=== PATIENT | female | born 1990 | race Hispanic/Latino ===

== ENCOUNTER 2018-08-30 22:36 | Emergency (ER) | payer OTHER ==
[2018-08-30] MEDS ORDERED: IBUPROFEN 400 MG TAB ONE (23:23)
--- NOTE | 2018-08-31 00:32 | ER ---
Nurse's Notes [facility] Name: Reyna Resendiz Age: 27 yrs Sex: Female : 1990 Arrival Date: 08/30/2018 Time: 22:41 Bed 16 Private MD: Diagnosis: Influenza due to certain identified influenza viruses Presentation: 08/30 22:49 Presenting complaint: Patient states: "I think I have the flu" Reports symptoms of body tl2 aches, headache, sore throat, nausea, and fever. Symptoms started at 12:00 today. Transition of care: patient was not received from another setting of care. Onset of symptoms was August 30, 2018 at 12:00. Risk Assessment: Do you want to hurt yourself or someone else? Patient reports no desire to harm self or others. Initial Sepsis Screen: Does the patient meet any 2 criteria? No. Patient's initial sepsis screen is negative. Does the patient have a suspected source of infection? No. Patient's initial sepsis screen is negative. Care prior to arrival: None. 22:49 Method Of Arrival: Ambulatory tl2 22:49 Acuity: ALONDRA 4 tl2 Triage Assessment: 22:51 General: Appears in no apparent distress. uncomfortable, Behavior is calm, cooperative, tl2 appropriate for age. Pain: Complains of pain in body aches, headache, sore throat. Neuro: Level of Consciousness is awake, alert, obeys commands, Oriented to person, place, time, situation. Cardiovascular: Denies chest pain. Respiratory: Reports cough that is Airway is patent Respiratory effort is even, unlabored, Respiratory pattern is regular, symmetrical. GI: Reports nausea. : No signs and/or symptoms were reported regarding the genitourinary system. Derm: Skin is pink, warm \\T\\ dry. 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 - Social history:: Smoking status: Patient/guardian denies using tobacco. - Ebola Screening: : No symptoms or risks identified at this time. Screenin:53 Abuse screen: Denies threats or abuse. Nutritional screening: No deficits noted. tl2 Tuberculosis screening: No symptoms or risk factors identified. Fall Risk None identified. Assessment: 22:53 General: see triage assessment. tl2 08/31 00:00 Reassessment: Patient appears in no apparent distress at this time. Patient and/or tl2 family updated on plan of care and expected duration. Pain level reassessed. Patient is alert, oriented x 3, equal unlabored respirations, skin warm/dry/pink. 01:00 Reassessment: Patient appears in no apparent distress at this time. Patient and/or tl2 family updated on plan of care and expected duration. Pain level reassessed. Patient is alert, oriented x 3, equal unlabored respirations, skin warm/dry/pink. pt verbalized understanding of discharge instructions, need for follow up and medication usage. Vital Signs: 08/30 22:51 BP 130 / 83; Pulse 119; Resp 20; Temp 99(O); Pulse Ox 100% on R/A; Weight 131.54 kg; tl2 Height 5 ft. 7 in. (170.18 cm); Pain 4/10; 08/31 00:15 BP 138 / 88; Pulse 111; Resp 18; Pulse Ox 99% on R/A; tl2 08/30 22:51 Body Mass Index 45.42 (131.54 kg, 170.18 cm) tl2 ED Course: 08/30 22:41 Patient arrived in ED. es 22:43 Bethel Mathews PA is PHCP. [facility] 22:43 Marshall Kapoor MD is Attending Physician. [facility] 22:48 Gely Boothe RN is Primary Nurse. tl2 22:50 Triage completed. tl2 22:51 Arm band placed on right wrist. tl2 22:54 Patient has correct armband on for positive identification. Bed in low position. Call tl2 light in reach. Side rails up X 1. Adult w/ patient. 23:16 Flu Sent. tl2 23:16 Strep Sent. tl2 08/31 01:00 No provider procedures requiring assistance completed. Patient did not have IV access tl2 during this emergency room visit. Administered Medications: 08/30 23:26 Drug: Motrin 400 mg Route: PO; tl2 08/31 01:01 Follow up: Response: No adverse reaction; Pain is decreased tl2 Outcome: 00:31 Discharge ordered by MD. lauren 01:00 Discharged to home ambulatory, with family. tl2 01:00 Condition: stable 01:00 Discharge instructions given to patient, Instructed on discharge instructions, follow up and referral plans. medication usage, Demonstrated understanding of instructions, follow-up care, medications. 01:01 Patient left the ED. tl2 Signatures: Bethel Mathews PA PA jmm Salyer, Edna es Knox, Taylor, JENAE RN tl2
--- NOTE | 2018-08-31 00:32 | EDPHYS ---
Physician Documentation [facility] Name: Reyna Resendiz Age: 27 yrs Sex: Female : 1990 Arrival Date: 08/30/2018 Time: 22:41 Bed 16 Private MD: ED Physician Marshall Kapoor HPI: 08/30 23:15 This 27 yrs old Female presents to ER via Ambulatory with complaints of Flu jmm Symptoms. 23:15 Onset: The symptoms/episode began/occurred gradually, today. jmm 23:15 Associated signs and symptoms: Pertinent positives: fever, sore throat. jmm 23:15 This is a 27 year old female with no chronic medical conditions that presents to the ED jmm with complaints of cough, sore throat, headache, beginning earlier today. Patient did not receive flu immunization this year. . 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 - Social history:: Smoking status: Patient/guardian denies using tobacco. - Ebola Screening: : No symptoms or risks identified at this time. ROS: 23:15 Eyes: Negative for injury, pain, redness, and discharge, ENT: Negative for injury, jmm pain, and discharge, Cardiovascular: Negative for chest pain, palpitations, and edema. 23:15 Abdomen/GI: Negative for abdominal pain, nausea, vomiting, diarrhea, and constipation. 23:15 Constitutional: Positive for body aches, chills, fever. 23:15 ENT: Positive for sore throat. 23:15 Respiratory: Positive for cough. 23:15 Neuro: Positive for headache. 23:15 All other systems are negative. Exam: 23:15 Constitutional: This is a well developed, well nourished patient who is awake, alert, jmm and in no acute distress. Head/Face: atraumatic. Eyes: EOMI, no conjunctival erythema appreciated 23:15 Neck: Trachea midline, Supple Chest/axilla: Normal chest wall appearance and motion. 23:15 Abdomen/GI: Non distended, soft Back: Normal ROM Skin: General appearance color normal MS/ Extremity: Moves all extremities, no obvious deformities appreciated, no edema noted to the lower extremities Neuro: Awake and alert, normal gait Psych: Behavior is normal, Mood is normal, Patient is cooperative and pleasant 23:15 ENT: TM's: erythema, that is moderate, bilaterally, Posterior pharynx: erythema, that is mild. 23:15 Cardiovascular: Rate: normal, Rhythm: regular, Pulses: no pulse deficits are appreciated. 23:15 Respiratory: the patient does not display signs of respiratory distress, Respirations: normal, Breath sounds: are clear throughout. Vital Signs: 22:51 BP 130 / 83; Pulse 119; Resp 20; Temp 99(O); Pulse Ox 100% on R/A; Weight 131.54 kg; tl2 Height 5 ft. 7 in. (170.18 cm); Pain 4/10; 08/31 00:15 BP 138 / 88; Pulse 111; Resp 18; Pulse Ox 99% on R/A; tl2 08/30 22:51 Body Mass Index 45.42 (131.54 kg, 170.18 cm) tl2 MDM: 08/30 23:15 Patient medically screened. [facility] 08/31 00:29 Differential diagnosis: bronchitis, flu, URI. Data reviewed: vital signs, nurses notes, [facility] lab test result(s). Counseling: I had a detailed discussion with the patient and/or guardian regarding: the historical points, exam findings, and any diagnostic results supporting the discharge/admit diagnosis, lab results, the need for outpatient follow up, to return to the emergency department if symptoms worsen or persist or if there are any questions or concerns that arise at home. 00:29 ED course: Patient is alert and non toxic in appearance in the ED. No signs of [facility] respiratory distress. Lungs CTA. Patient advised to increase fluid intake. patient given return precautions. patient understood and agrees with the plan of care. . 08/30 23:03 Order name: Flu; Complete Time: 00:07 tl2 08/30 23:03 Order name: Strep; Complete Time: 00:07 tl2 08/30 23:51 Order name: Throat Culture EDMS Administered Medications: 08/30 23:26 Drug: Motrin 400 mg Route: PO; 2 08/31 01:01 Follow up: Response: No adverse reaction; Pain is decreased tl2 Disposition: 03:58 Co-signature as Attending Physician, Marshall Kapoor MD I agree with the assessment and wa plan of care. Disposition: 08/31/18 00:31 Discharged to Home. Impression: Influenza due to certain identified influenza viruses. - Condition is Stable. - Discharge Instructions: Influenza, Adult. - Medication Reconciliation Form, Thank You Letter, Antibiotic Education, Prescription Opioid Use, Family Work Release form. - Follow up: Private Physician; When: 2 - 3 days; Reason: Recheck today's complaints, Continuance of care, Re-evaluation by your physician. Signatures: Dispatcher [employer] EDMS Bethel Mathews PA PA jmm Knox, Taylor, RN RN tl2 Marshall Kapoor MD MD wa Corrections: (The following items were deleted from the chart) 01:01 00:31 08/31/2018 00:31 Discharged to Home. Impression: Influenza due to certain tl2 identified influenza viruses. Condition is Stable. Forms are Medication Reconciliation Form, Thank You Letter, Antibiotic Education, Prescription Opioid Use. Follow up: Private Physician; When: 2 - 3 days; Reason: Recheck today's complaints, Continuance of care, Re-evaluation by your physician. [email or web address]
== END 2018-08-31 01:01 | disposition home or self-care (01) ==
LOC: ER 22:36
DX: J11.1 Influenza due to unidentified influenza virus with other respiratory manifestations (principal); Z88.0 Allergy status to penicillin
CPT/HCPCS: 87070; 87081; 87804; 99283

== ENCOUNTER 2021-01-30 21:13 | Emergency (ER) | payer BC, OTHER ==
[2021-01-30] MEDS ORDERED: NA CHLORIDE 0.9% 1,000 ML ONE (21:57)
[2021-01-30] MEDS ORDERED: FAMOTIDINE 20 MG/2 ML VIAL IV ONE (21:57)
[2021-01-30] MEDS ORDERED: MORPHINE 2 MG/ML SYR ONE (21:57)
[2021-01-30] MEDS ORDERED: ONDANSETRON 4 MG/2 ML VIAL ONE (21:57)
[2021-01-30 22:02] LABS: Absolute Lymphocytes (CBC) 4.5 K/uL (0.7-4.9); Basophils % 0.4 % (0-1.3); Hematocrit 40.9 % (36.0-45.0); Lymphocytes % 46.1 % (15.3-44.8); MPV 9.6 fL (7.6-11.3); RBC Red Blood Cell Count 5.08 M/uL (3.86-4.86)
[2021-01-30 22:13] LABS: Albumin 3.6 g/dL (3.4-5.0); Bilirubin Direct 0.2 mg/dL (0-0.2); Bilirubin Total 0.5 mg/dL (0.2-1.0); Potassium 3.9 mmol/L (3.5-5.1); Protein, Total 7.5 g/dL (6.4-8.2)
[2021-01-30 23:25] LABS: Urine Blood 1+ (Negative); Urine Glucose Negative (Negative); Urine Protein Negative (Negative); Urine Specific Gravity >=1.030 (1.005-1.030); Urine pH 5.5 (5.0-7.0)
[2021-01-30 23:29] LABS: Urine Specific Gravity/Preg >1.030 (1.005-1.030)
[2021-01-31] MEDS ORDERED: LIDOCAINE VISCOUS 2% SOLN 15 ML UDC ONE (01:01)
[2021-01-31] MEDS ORDERED: MAGNES/ALUMIN/SIMET 30ML UCUP ONE (01:01)
--- NOTE | 2021-01-31 01:14 | ER ---
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 Reports ca1 nausea. Coronavirus screen: Client denies travel out of the [place] in the last 14 days. nausea, Client presents with at least one sign or symptom that may indicate coronavirus-19. Standard/surgical mask placed on the client. Provider contacted for isolation considerations. Ebola Screen: Patient negative for fever greater than or equal to 101.5 degrees Fahrenheit, and additional compatible Ebola Virus Disease symptoms Patient denies exposure to infectious person. Patient denies travel to an Ebola-affected area in the 21 days before illness onset. No symptoms or risks identified at this time. Initial Sepsis Screen: Does the patient meet any 2 criteria? No. Patient's initial sepsis screen is negative. Does the patient have a suspected source of infection? No. Patient's initial sepsis screen is negative. Risk Assessment: Do you want to hurt yourself or someone else? Patient reports no desire to harm self or others. Onset of symptoms was January 30, 2021. 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 - Social history:: Smoking status: Patient denies any tobacco usage or history of. Screenin:32 Abuse screen: Denies threats or abuse. Nutritional screening: No deficits noted. ea Tuberculosis screening: No symptoms or risk factors identified. 21:56 Fall Risk None identified. lp1 Assessment: 21:30 General: Appears uncomfortable, Behavior is appropriate for age. Pain: Complains of lp1 pain in epigastric area. Neuro: Level of Consciousness is awake, alert, obeys commands, Oriented to person, place, time, situation. Cardiovascular: Patient's skin is warm and dry. Respiratory: Respiratory effort is even, unlabored. GI: Abdomen is obese, Bowel sounds present X 4 quads. Abdomen is tender to palpation in epigastric area and right upper quadrant Reports upper abdominal pain, nausea. : No signs and/or symptoms were reported regarding the genitourinary system. EENT: No signs and/or symptoms were reported regarding the EENT system. Derm: Skin is intact, Skin is clammy, Skin is normal. Musculoskeletal: No deficits noted. 22:43 Reassessment: Patient is alert, oriented x 3, equal unlabored respirations, skin lp1 warm/dry/pink. Patient reports pain relief, some nausea continued; appears more comfortable at this time. 01/31 00:30 Reassessment: Patient appears in no apparent distress at this time. Aware of waiting lp1 for CT results; Reports some nausea, mild pain returning. Vital Signs: 01/30 21:18 Pulse 71; Resp 18 S; Temp 96.3(TE); Pulse Ox 100% ; Weight 127.01 kg (R); Height 5 ft. ca1 7 in. (170.18 cm) (R); Pain 10/10; 21:19 BP 103 / 65; ca1 22:43 BP 114 / 65; Pulse 64; Resp 16; Pulse Ox 100% on R/A; lp1 01/31 00:40 BP 124 / 68; Pulse 62; Resp 16; Pulse Ox 99% on R/A; lp1 01/30 21:18 Body Mass Index 43.85 (127.01 kg, 170.18 cm) ca1 ED Course: 01/30 21:15 Patient arrived in ED. es 21:19 Triage completed. ca1 21:19 Arm band placed on right wrist. ca1 21:23 Keturah Ventura, JENAE is Primary Nurse. lp1 21:25 Jean-Paul Monterroso MD is Attending Physician. mh7 21:30 Inserted saline lock: 20 gauge in right antecubital area, using aseptic technique. lp1 Blood collected. 21:32 Patient has correct armband on for positive identification. Bed in low position. Call ea light in reach. 23:52 CT Abd/Pelvis - IV Contrast Only In Process Unspecified. EDMS 01/31 01:26 No provider procedures requiring assistance completed. IV discontinued, No lp1 redness/swelling at site. Pressure dressing applied. Administered Medications: 01/30 21:46 Drug: morphine 2 mg Route: IVP; Site: right antecubital; lp1 23:06 Follow up: Response: Pain is decreased lp1 21:46 Drug: Zofran (Ondansetron) 4 mg Route: IVP; Site: right antecubital; lp1 23:06 Follow up: Response: Nausea is decreased lp1 21:46 Drug: Pepcid (famotidine) 20 mg Route: IVP; Site: right antecubital; lp1 23:06 Follow up: Response: No adverse reaction lp1 21:47 Drug: NS 0.9% 1000 ml Route: IV; Rate: 1000 ml; Site: right antecubital; lp1 23:15 Follow up: IV Status: Completed infusion; IV Intake: 1000ml lp1 01/31 00:45 Drug: GI Cocktail without - (Maalox Suspension 30 ml, Lidocaine Liquid 2 % 15 lp1 ml) Route: PO; 01:26 Follow up: Response: Marked relief of symptoms lp1 Intake: 01/30 23:15 IV: 1000ml; Total: 1000ml. lp1 Outcome: 01/31 01:14 Discharge ordered by . [facility] 01:27 Discharged to home ambulatory, with family. lp1 01:27 Condition: good 01:27 Discharge instructions given to patient, Instructed on discharge instructions, follow up and referral plans. medication usage, Demonstrated understanding of instructions, follow-up care, medications, Prescriptions given X 2. 01:27 Patient left the ED. lp1 Signatures: Dispatcher [employer] EDAL Rosaura Bone Laura, RN RN lp1 Priscilla Castellanos RN RN ea Acob, Cheryl, RN RN ca1 Jean-Paul Monterroso MD MD 7 Corrections: (The following items were deleted from the chart) 01/30 21:21 21:18 Acuity: ALONDRA 3 ca1 ca1
--- NOTE | 2021-01-31 01:15 | EDPHYS ---
Physician Documentation [facility] Name: Reyna Resendiz Age: 30 yrs Sex: Female : 1990 Arrival Date: 01/30/2021 Time: 21:15 Bed 7 Private MD: ED Physician Jean-Paul Monterroso HPI: 01/30 22:01 This 30 yrs old Female presents to ER via Wheelchair with complaints of mh7 Abdominal Pain. 22:01 The patient presents with abdominal pain in the upper abdomen. Onset: The mh7 symptoms/episode began/occurred just prior to arrival, today. The symptoms do not radiate. Associated signs and symptoms: Pertinent positives: nausea, Pertinent negatives: anorexia, blood in stools, chest pain, constipation, diarrhea, dysuria, fever, headache, hematuria, palpitations, shortness of breath, vaginal discharge, vomiting, vomiting blood. The symptoms are described as intermittent, vague, waxing/waning. Modifying factors: The symptoms are alleviated by nothing, the symptoms are aggravated by nothing. Severity of pain: At its worst the pain was moderate today, in the emergency department the pain is unchanged. MANAGER EXCHANGE: 21:19 LMP 01/26/2021 ca1 Historical: - Allergies: 21:19 PENICILLINS; ca1 - Home Meds: 21:19 None [Active]; ca1 - PMHx: 21:19 None; ca1 - PSHx: 21:19 knee surgery; gastric sleeve; Tonsillectomy; ca1 - Immunization history:: Client reports receiving the 2nd dose of the Covid vaccine, Client reports receiving the 1st dose of the Covid vaccine, Flu vaccine is up to date. - Social history:: Smoking status: Patient denies any tobacco usage or history of. ROS: 22:01 Constitutional: Negative for fever, chills, and weight loss, Eyes: Negative for injury, mh7 pain, redness, and discharge, ENT: Negative for injury, pain, and discharge, Neck: Negative for injury, pain, and swelling, Cardiovascular: Negative for chest pain, palpitations, and edema, Respiratory: Negative for shortness of breath, cough, wheezing, and pleuritic chest pain, Back: Negative for injury and pain, : Negative for injury, bleeding, discharge, and swelling, MS/Extremity: Negative for injury and deformity, Skin: Negative for injury, rash, and discoloration, Neuro: Negative for headache, weakness, numbness, tingling, and seizure, Psych: Negative for depression, anxiety, suicide ideation, homicidal ideation, and hallucinations, Allergy/Immunology: Negative for hives, rash, and allergies, Endocrine: Negative for neck swelling, polydipsia, polyuria, polyphagia, and marked weight changes, Hematologic/Lymphatic: Negative for swollen nodes, abnormal bleeding, and unusual bruising. Exam: 22:01 Constitutional: This is a well developed, well nourished patient who is awake, alert, mh7 and in no acute distress. Head/Face: Normocephalic, atraumatic. Eyes: Pupils equal round and reactive to light, extra-ocular motions intact. Lids and lashes normal. Conjunctiva and sclera are non-icteric and not injected. Cornea within normal limits. Periorbital areas with no swelling, redness, or edema. Neck: Trachea midline, no thyromegaly or masses palpated, and no cervical lymphadenopathy. Supple, full range of motion without nuchal rigidity, or vertebral point tenderness. No Meningismus. Chest/axilla: Normal chest wall appearance and motion. Nontender with no deformity. No lesions are appreciated. Cardiovascular: Regular rate and rhythm with a normal S1 and S2. No gallops, murmurs, or rubs. Normal PMI, no JVD. No pulse deficits. Respiratory: Lungs have equal breath sounds bilaterally, clear to auscultation and percussion. No rales, rhonchi or wheezes noted. No increased work of breathing, no retractions or nasal flaring. 22:01 Back: No spinal tenderness. No costovertebral tenderness. Full range of motion. Skin: Warm, dry with normal turgor. Normal color with no rashes, no lesions, and no evidence of cellulitis. MS/ Extremity: Pulses equal, no cyanosis. Neurovascular intact. Full, normal range of motion. Neuro: Awake and alert, GCS 15, oriented to person, place, time, and situation. Cranial nerves II-XII grossly intact. Motor strength 5/5 in all extremities. Sensory grossly intact. Cerebellar exam normal. Normal gait. Psych: Awake, alert, with orientation to person, place and time. Behavior, mood, and affect are within normal limits. 22:01 Abdomen/GI: Inspection: obese Bowel sounds: normal, in all quadrants, Palpation: moderate abdominal tenderness, in the epigastric area, mass, is not appreciated, rebound tenderness, is not appreciated, voluntary guarding, is not appreciated, involuntary guarding, is not appreciated, no appreciated organomegaly, Rectal exam: the exam is deferred, because of patient request, Indicators: McBurney's point is not tender, Bello's sign is negative, Rovsing's sign is negative, Obturator sign is negative, Psoas sign is negative, Liver: no appreciated palpable abnormalities, Hernia: not appreciated. Vital Signs: 21:18 Pulse 71; Resp 18 S; Temp 96.3(TE); Pulse Ox 100% ; Weight 127.01 kg (R); Height 5 ft. ca1 7 in. (170.18 cm) (R); Pain 10/10; 21:19 BP 103 / 65; ca1 22:43 BP 114 / 65; Pulse 64; Resp 16; Pulse Ox 100% on R/A; lp1 01/31 00:40 BP 124 / 68; Pulse 62; Resp 16; Pulse Ox 99% on R/A; lp1 01/30 21:18 Body Mass Index 43.85 (127.01 kg, 170.18 cm) ca1 MDM: 01:12 Differential diagnosis: bowel obstruction, cholecystitis, Cholelithiasis, mh7 diverticulitis, gastritis, gastroesophageal reflux disease, non-specific abd pain, pancreatitis, urinary tract infection. Data reviewed: vital signs, nurses notes, lab test result(s), CBC, electrolytes, urinalysis, radiologic studies, CT scan. Data interpreted: Pulse oximetry: on room air is 99 %. Interpretation: normal. Counseling: I had a detailed discussion with the patient and/or guardian regarding: the historical points, exam findings, and any diagnostic results supporting the discharge/admit diagnosis, lab results, radiology results, the need for outpatient follow up, to return to the emergency department if symptoms worsen or persist or if there are any questions or concerns that arise at home. Response to treatment: the patient's symptoms have resolved after treatment, the patient's blood pressure is in an acceptable range, mental status has returned to baseline, the patient no longer shows bradycardia, the patient is not short of breath, the patient is not tachycardic, the patient's pain is gone, the patient's temperature has normalized. 01:14 Patient medically screened. [facility] 01/30 21:26 Order name: Basic Metabolic Panel; Complete Time: 22:19 01/30 21:26 Order name: CBC with Diff; Complete Time: 22:19 01/30 21:26 Order name: Hepatic Function; Complete Time: 22:19 01/30 21:26 Order name: Lipase; Complete Time: 22:19 01/30 23:24 Order name: Urine Dipstick-Ancillary; Complete Time: 01:05 [facility] 01/30 23:25 Order name: Urine --Ancillary (enter results) [facility] 01/30 21:26 Order name: IV Saline Lock; Complete Time: 21:47 01/30 22:27 Order name: CT Abd/Pelvis - IV Contrast Only [facility] 01/30 23:26 Order name: Urine --Ancillary; Complete Time: 01:05 [facility] 01/30 21:26 Order name: Labs collected and sent; Complete Time: 21:47 01/30 21:32 Order name: Urine Dipstick-Ancillary (obtain specimen); Complete Time: 00:50 [facility] 01/30 21:32 Order name: Urine Test (obtain specimen); Complete Time: 00:50 [facility] Administered Medications: 01/30 21:46 Drug: morphine 2 mg Route: IVP; Site: right antecubital; lp1 23:06 Follow up: Response: Pain is decreased lp1 21:46 Drug: Zofran (Ondansetron) 4 mg Route: IVP; Site: right antecubital; lp1 23:06 Follow up: Response: Nausea is decreased lp1 21:46 Drug: Pepcid (famotidine) 20 mg Route: IVP; Site: right antecubital; lp1 23:06 Follow up: Response: No adverse reaction lp1 21:47 Drug: NS 0.9% 1000 ml Route: IV; Rate: 1000 ml; Site: right antecubital; lp1 23:15 Follow up: IV Status: Completed infusion; IV Intake: 1000ml 1 01/31 00:45 Drug: GI Cocktail without - (Maalox Suspension 30 ml, Lidocaine Liquid 2 % 15 lp1 ml) Route: PO; 01:26 Follow up: Response: Marked relief of symptoms lp1 Disposition Summary: 01/31/21 01:14 Discharge Ordered Location: Home [facility] Problem: new [facility] Symptoms: have improved [facility] Condition: Stable [facility] Diagnosis - Upper abdominal pain, unspecified 7 - Gastritis, unspecified mh7 Followup: [facility] - With: Private Physician - When: 1 - 2 days - Reason: Worsening of condition, Recheck today's complaints, Continuance of care, Re-evaluation by your physician Discharge Instructions: - Discharge Summary Sheet [facility] - Gastritis, Adult, [id number] [facility] - Abdominal Pain, Adult, [id number] [facility] Forms: - Medication Reconciliation Form [facility] - Thank You Letter [facility] - Antibiotic Education [facility] - Prescription Opioid Use [facility] Prescriptions: - ondansetron 4 mg Oral tablet,disintegrating - place 1 tablet by TRANSLINGUAL route every 8 hours As needed; 6 tablet; 7 Refills: 0, Product Selection Permitted - Pepcid 20 mg Oral Tablet - take 1 tablet by ORAL route every 12 hours for 5 days; 10 tablet; Refills: 0, [facility] Product Selection Permitted Signatures: Dispatcher [employer] Keturah Sanchez RN RN lp1 Priscilla Castellanos RN RN Mary Lindquist RN RN Jean-Paul Lopez MD MD [facility]
[2021-01-31 01:34] VITALS: TEMP 96.3
[2021-01-31 01:39] VITALS: BP 124/68; O2SAT 99
--- NOTE | 2021-01-31 13:58 | RAD REPORT ---
EXAM DESCRIPTION: CT Abdomen and Pelvis With Intravenous Contrast CLINICAL HISTORY: The patient is 30 years old and is Female; ABD PAIN TECHNIQUE: Axial computed tomography images of the abdomen and pelvis with intravenous contrast. S agittal and coronal reformatted images were created and reviewed. This CT exam was performed using one or more of the following dose reduction techniques: automated exposure control, adjustment of t he mA and/or kV according to patient size, and/or use of iterative reconstruction technique. COMPARISON: No relevant prior studies available. FINDINGS: Limitations: Evaluation limited without sagittal reconstruction. Lung bases: Unremarkable. No mass. No consolidation. ABDOMEN: Liver: Unremarkable. No mass. Gallbladder and bile ducts: Unremarkable. No calcified stones. No ductal dilation. Pancreas: Unremarkable. No mass. No ductal dilation. Spleen: Unremarkable. No splenomegaly. Adrenals: Unremarkable. No mass. Kidneys and ureters: Unremarkable. No solid mass. No hydronephrosis. Stomach and bowel: Postsurgical changes in the stomach. No obstruction. No mucosal thickening. PELVIS: Appendix: No findings to suggest acute appendicitis. Bladder: Unremarkable. No mass. Reproductive: Unremarkable as visualized. ABDOMEN and PELVIS: Intraperitoneal space: Unremarkable. No free air. No significant fluid collection. Bones/joints: No acute fracture. No dislocation. Soft tissues: Unremarkable. Vasculature: Unremarkable. No abdominal aortic aneurysm. Lymph nodes: Unremarkable. No enlarged lymph nodes. IMPRESSION: No acute findings in the abdomen or pelvis. Electronically signed by: Harish Guerra MD 01/31/2021 12:19 AM CDT Due to temporary technical issues with the PACS/Fluency reporting system, reports are being signed by the in house radiologist without review as a courtesy to ensure prompt reporting. The interpreting r adiologist is fully responsible for the content of the report.
== END 2021-01-31 01:27 | disposition home or self-care (01) ==
LOC: ER 21:13
DX: K29.70 Gastritis, unspecified, without bleeding (principal); Z88.0 Allergy status to penicillin
CPT/HCPCS: 96361; 85025; 80048; 36415; 81025; 80076; 81003; 83690; 74177; 96375; 96374; 99284; Q9967; J2270; J7030; J2405

== ENCOUNTER 2022-05-06 07:23 | Emergency (ER) | payer BC ==
--- OUTSIDE RECORDS SUMMARY | 2022-05-06 07:27 | XMS REPORT | Continuity of Care Document ---
:1990 Author Organization [facility] t Address [facility]ly [facility] Naren Nelson [address] [place] [address] Care Team Providers Name Role Phone GC_LINDA_Yuriy_J Attending Clinician Unavailable Anson Yan Attending Clinician [phone] Velasquez Goldberg Attending Clinician Unavailable Velasquez Goldberg Attending Clinician [phone] GC_PREET_Yuriy_J Attending Clinician Unavailable Eliot Scherer Attending Clinician BREANNE_LINDA_Yuriy_Sandra Admitting Clinician Unavailable BREANNE_PREET_SantiagoJ Admitting Clinician Unavailable Payers Payer Name Policy Type Policy Number Effective Date Expiration Date S talisha [place] [id number] 2020 00:00:00 [place] JM [id number] (PPO) Problems This patient has no known problems. Allergies, Adverse Reactions, Alerts Allergy Allergy Status Severity Reaction(s) Onset Inactive Treating Comm ents Source Name Type Date Date Clinician Penicill Allergy Active Rash [facility] to Medical substanc e penicill penicill Active [facility] Social History Smoking Status Start Date Stop Date Source Social History [facility] Medications Ordered Filled Start Stop Current Ordering Indication Dosage Frequency Signature Comments Components Source Medication Medication Date Date Medication? Clinician (SIG) Name Name Bactrim DS 2021- Yes 1 tab, PO, M emoria 800 mg- 160 5-21 BID, X 10 l mg oral 14:55: day, # 20 Pat nn tablet 00 tab, 0 Refill(s), Pharmacy: [id number], 167.64, cm, 12/10/21 9:32:00 CDT, Height, 117.273, kg, 12/10/21 9:32:00 CDT, Weight benzonatate benzonatate No benzonatat [facility] 200 mg 200 mg e 200 mg Medical capsule capsule capsule TAKE 1 TAKE 1 TAKE 1 CAPSULE BY CAPSULE BY CAPSULE BY MOUTH THREE MOUTH THREE MOUTH TIMES A DAY TIMES A DAY THREE TIMES A DAY cephalexin cephalexin No cephalexin [facility] 500 mg 500 mg 500 mg Medical capsule capsule capsule TAKE 1 TAKE 1 TAKE 1 CAPSULE BY CAPSULE BY CAPSULE BY MOUTH EVERY MOUTH EVERY MOUTH 12 HOURS 12 HOURS EVERY 12 FOR 5 DAYS FOR 5 DAYS HOURS FOR 5 DAYS doxycycline doxycycline No doxycyclin [facility] hyclate 100 hyclate 100 e hyclate Medical mg capsule mg capsule 100 mg TAKE 1 TAKE 1 capsule CAPSULE BY CAPSULE BY TAKE 1 MOUTH TWICE MOUTH TWICE CAPSULE BY A DAY A DAY MOUTH TWICE A DAY fluconazole fluconazole No fluconazol [facility] 150 mg 150 mg e 150 mg Medical tablet TAKE tablet TAKE tablet 1 TABLET BY 1 TABLET BY TAKE 1 MOUTH EVERY MOUTH EVERY TABLET BY 72 HOURS 72 HOURS MOUTH NEEDED NEEDED EVERY 72 HOURS NEEDED ibuprofen ibuprofen No ibuprofen [facility] 600 mg 600 mg 600 mg Medical tablet TAKE tablet TAKE tablet 1 TABLET BY 1 TABLET BY TAKE 1 MOUTH EVERY MOUTH EVERY TABLET BY 6 TO 8 6 TO 8 MOUTH HOURS HOURS EVERY 6 TO NEEDED NEEDED 8 HOURS NEEDED methylpredn methylpredn No methylpred [facility] isolone 4 isolone 4 nisolone 4 Medical mg tablets mg tablets mg tablets in a dose in a dose in a dose pack TAKE pack TAKE pack TAKE DIRECTED DIRECTED ON THE BACK ON THE BACK DIRECTED OF THE OF THE ON THE PACKAGE PACKAGE BACK OF THE PACKAGE metronidazo metronidazo No metronidaz [facility] le 0.75 % le 0.75 % ole 0.75 % Medical (37.5 mg/5 (37.5 mg/5 (37.5 mg/5 gram) gram) gram) vaginal gel vaginal gel vaginal INSERT 1 INSERT 1 gel INSERT APPLICATORF APPLICATORF 1 UL UL APPLICATOR VAGINALLY VAGINALLY FUL EVERY DAY EVERY DAY VAGINALLY EVERY DAY montelukast montelukast No montelukas [facility] 10 mg 10 mg t 10 mg Medical tablet TAKE tablet TAKE tablet 1 TABLET 1 TABLET TAKE 1 (10 MG) BY (10 MG) BY TABLET (10 MOUTH MOUTH MG) BY DAILY. DAILY. MOUTH DAILY. sulfamethox sulfamethox No sulfametho [facility] azole 800 azole 800 xazole 800 Medical mg-trimetho mg-trimetho mg-trimeth prim 160 mg prim 160 mg oprim 160 tablet TAKE tablet TAKE mg tablet 1 TABLET BY 1 TABLET BY TAKE 1 MOUTH TWICE MOUTH TWICE TABLET BY A DAY FOR A DAY FOR MOUTH 10 DAYS 10 DAYS TWICE A DAY FOR 10 DAYS Immunizations Ordered Immunization Filled Immunization Date Status Commen ts Source Name Name influenza, influenza, 2017-04-12 Completed [facility] injectable, injectable, 00:00:00 quadrivalent quadrivalent Tdap Tdap 2017-03-06 Completed [facility] 00:00:00 Vital Signs Vital Name Observation Time Observation Value Comments Source BP Diastolic 2022-05-03 00:00:00 85 [facility] Height 2022-05-03 00:00:00 67 [in_i] [facility] BP Systolic 2022-05-03 00:00:00 135 mm[Hg] [facility] Body Weight 2022-05-03 00:00:00 278 [lb_av] [facility] Weight 2021-12-10 14:32:00 [facility] BMI Calculated 2021-12-10 14:32:00 Eugene Mcclelland Heart Rate 2021-12-10 14:32:00 [facility] Respitory Rate 2021-12-10 14:32:00 Eugene Maharajann Systolic (mm Hg) 2021-12-10 14:32:00 Miguel Sneed Diastolic (mm Hg) 2021-12-10 14:32:00 [facility] Height 2021-12-10 14:32:00 167.64 cm [facility] Procedures Procedure Date / Time Performed Performing Clinician Sour e Appendectomy [facility] Other [facility] Tonsillectomy [facility] Plan of Care Planned Activity Planned Date Details Comments Source Diagnostic Test Pending 2022-05-03 00:00:00 beta-HCG, [facility] quantitative, serum or plasma [code = beta-HCG, quantitative, serum or plasma] Diagnostic Test Pending 2022-05-03 00:00:00 progesterone, free, [facility] serum [code = progesterone, free, serum] Future Appointment 2022-11-16 00:00:00 Anson Yan, Niraj [facility] [place] [address] Encounters Start End Encounter Admission Attending Care Care Encounter Source Date/Time Date/Time Type Type Clinicians Facility Department ID 2022-05-03 2022-05-03 [facility] [id number] [facility] 00:00:00 00:00:00 [facility] ashley Yan GC_LINDA_ : [address], [place] [address] , Ph. 2022-04-25 2022-04-25 Outpatient GC_SWHAOM[facility]_ PRIV PRIV [id number] [facility] 00:00:00 00:00:00 Abel [id number] Medic al 2022-04-21 2022-04-21 Outpatient GC_[facility]WHAOM[facility]_ PRIV PRIV [id number] [facility] 00:00:00 00:00:00 Abel [id number] Medic al 2022-03-24 2022-03-24 Outpatient GC_[facility]WHAOM[facility]_ PRIV PRIV [id number] [facility] 00:00:00 00:00:00 Abel [id number] Medic al 2022-03-01 2022-03-01 Outpatient GC_SWHAOM[facility]_ PRIV PRIV [id number] [facility] 00:00:00 00:00:00 Abel [id number] Medic al 2022-03-01 2022-03-01 Outpatient Yuriy, PRIV PRIV [id number] 00:00:00 00:00:00 Anson [id number] Esteban [id number] 2022-02-23 2022-02-23 Outpatient GC_SWHAOM[facility]_ PRIV PRIV [id number] [facility] 00:00:00 00:00:00 Abel [id number] Medic al 2022-02-17 2022-02-17 Outpatient Yusuf [facility] [id number] [facility] 12:22:00 12:22:[address] [place] [address] 2022-02-15 2022-02-15 Outpatient GC_SWHAOMC_ PRIV PRIV [id number] [facility] 00:00:00 00:00:00 Abel [id number] Medic al 2022-02-10 2022-02-10 Outpatient GC_SWHAOMC_ PRIV PRIV [id number] [facility] 02:05:00 02:05:00 Abel [id number] Medic al 2022-02-10 2022-02-10 Outpatient Yusuf, PRIV PRIV [id number] 00:00:00 00:00:00 Velasquez [id number] Nigel [id number] 2022-02-09 2022-02-09 Outpatient GC_SWHAOM[facility]_ PRIV PRIV [id number] [facility] 05:13:00 05:13:00 Abel [id number] Medic al 2022-02-06 2022-02-06 Outpatient GC_SWHAOMC_ PRIV PRIV [id number] [facility] 02:00:00 02:00:00 Abel [id number] Medic al 2022-01-28 2022-01-28 Outpatient GC_SWHAOMC_ PRIV PRIV [id number] [facility] 05:09:00 05:09:00 Abel [id number] Medic al 2022-01-27 2022-01-27 Outpatient GC_SWHAOMC_ PRIV PRIV [id number] [facility] 03:13:00 03:13:00 Abel [id number] Medic al 2022-01-27 2022-01-27 Outpatient Yuriy, PRIV PRIV [id number] 00:00:00 00:00:00 Anson [id number] Esteban [id number] 2022-01-03 2022-01-03 Outpatient GC_SWHAOMC_ PRIV PRIV [id number] [facility] 02:38:00 02:38:00 Abel [id number] Medic al 2021-12-26 2021-12-26 Outpatient GC_SWHAOMC_ PRIV PRIV [id number] [facility] 03:51:00 03:51:00 Abel [id number] Medic al 2021-12-26 2021-12-26 Outpatient Yuriy, PRIV PRIV [id number] 00:00:00 00:00:00 Anson [id number] Esteban [id number] 2021-12-25 2021-12-25 Outpatient GC_SWHATBIC PRIV PRIV [id number] [facility] 05:47:00 05:47:00 _Abel [id number] [facility] keaton 2021-12-23 2021-12-23 Outpatient GC_SWHAOMC_ PRIV PRIV [id number] [facility] 02:23:00 02:23:00 Abel [id number] Medic al 2021-12-15 2021-12-15 Outpatient GC_SWHATBIC PRIV PRIV [id number] [facility] 04:53:00 04:53:00 _Abel [id number] [facility] 2021-12-10 2021-12-11 Outpatient nullFlavo Urgent [id number] [facility] 14:10:00 04:59:59 r Care 00 l Charlee taylor 2021-12-10 2021-12-10 Outpatient Scherer [facility] [id number] 09:10:00 23:59:59 Eliot Yuni 00 2021-12-10 2021-12-10 Outpatient [facility] [id number] [facility] 09:10:00 09:10:00 00 l Naren 2021-11-17 2021-11-17 Outpatient GC_SWHATBIC PRIV PRIV [id number] [facility] 01:16:00 01:16:00 _Abel [id number] [facility] 2021-11-16 2021-11-16 Outpatient GC_SWHAOMC_ PRIV PRIV [id number] [facility] 01:36:00 01:36:00 Abel [id number] Medic al 2021-11-16 2021-11-16 Outpatient Yuriy, PRIV PRIV [id number] 00:00:00 00:00:00 Anson [id number] Esteban [id number] 2021-11-15 2021-11-15 Outpatient GC_SWHAOMC_ PRIV PRIV [id number] [facility] 12:06:00 12:06:00 Abel [id number] Medic al 2021-10-13 2021-10-13 Outpatient GC_SWHAOMC_ PRIV PRIV [id number] [facility] 10:19:00 10:19:00 Abel [id number] Medic al 2021-10-13 2021-10-13 Outpatient GC_SWHAOMC_ PRIV PRIV [id number] [facility] 10:16:00 10:16:00 Abel [id number] Medic al 2021-10-12 2021-10-12 Outpatient GC_LENINOM_ PRIV PRIV [id number] [facility] 06:12:00 06:12:00 Abel [id number] Medic al 2021-10-12 2021-10-12 Outpatient PRIV PRIV [id number] [facility] 06:08:00 06:08:00 [id number] Medica l Results Test Description Test Time Test Comments Results Result Comments Source SURGICAL 2022-02-21 16:46:00 Test Item Value Reference Range Interpretation Comme maryanne SURGICAL RUN DATE: (test 02/21/22 [facility] y PAGE 1 RUN TIME: 1646 Specimen Inquiry RUN USER: INTERFACE code = PATIENT: EKATERINA CARLEE COPPOLANEY [id number] LOC: JasonRENNY U #: [id number] AGE/SX: 31/F ROOM: RE02/17/22REG DR: Velasquez Goldberg MD : 89 BED: DIS: STATUS: R EG REF TLOC: SPEC #: [id number] RECD: STATUS: BOLIVAR MORENO #: [id number] ROSALINA: 02/16/22- [address]: Velasquez Goldberg MD ENTERED : 02/17/22 SP TYPE: SURGICAL OTHR DR: ORDERED: ANATOMIC SPEC, SPEC TRACK, [id number] PROCEDURES: 88 305 (02/17/22) TISSUES: A. PRODUCTS OF CONCEPTION - SPONTANEOUS/MISSED FINAL DIAGNOSIS A. UTERUS, PRODUCTS OF CONCEPTION, SUCTION DILATATION AND CURETTAGE: - Placental tissu e and gestational endometrium present GROSS DESCRIPTION Received in formalin, labeled with the p atient's name and date of , designated as"products of conception," are multiple fragments of ta n to red-brown soft tissue gm and measuring 9.0 x 8.0 x 0.7 cm in aggregate. Chorionic vill i are grosslyidentified. No parts are grossly identified. Academic Support Coordinator sections are submittedin cassettes A1-A3. (hrr) [facility] [facility], [place] [address] Unless gross only, the diagnosis is based upon microscopic examination.Immu nohistochemistry: This test was developed and its performance characteristicsdetermined by this laboratory. It has not been approved nor does it need approval by [place] FDA. Appropriate posit stephanie and negative controls are reviewed and judged to beacceptable. This laboratory is certified unde r the Clinical Laboratory ImprovementAmendments (CLIA-88) as qualified to perform high complexity clin [facility] laboratory testing. CLINICAL INFORMATION 02/16/22, OUT OF BODY 14:19, IN FORMALIN 14:20, MISSED . Signed SIGNATURE ON FILE Trish Nicolas 02/21/22 1646 END OF REPORT
[2022-05-06] MEDS ORDERED: ONDANSETRON 4 MG/2 ML VIAL ONE (08:09)
[2022-05-06] MEDS ORDERED: NA CHLORIDE 0.9% 1,000 ML ONE (08:10)
[2022-05-06 08:26] LABS: Absolute Lymphocytes (CBC) 0.7 K/uL (0.7-4.9); Hematocrit 43.6 % (36.0-45.0); Lymphocytes % 7.6 % (15.3-44.8); MCV 81.7 fL (80-100); MPV 8.8 fL (7.6-11.3); RBC Red Blood Cell Count 5.34 M/uL (3.86-4.86)
[2022-05-06 08:26] LABS: Urine Blood 2+ (Negative); Urine Glucose Negative (Negative); Urine Protein 1+ (Negative); Urine Specific Gravity >=1.030 (1.005-1.030)
[2022-05-06 09:07] LABS: Potassium 4.1 mmol/L (3.5-5.1)
[2022-05-06 09:51] LABS: SARS-CoV-2 Antigen Rapid Res Negative (Negative)
--- NOTE | 2022-05-06 10:23 | ER ---
Nurse's Notes [facility] Name: Reyna Resendiz Age: 31 yrs Sex: Female : 1990 Arrival Date: 05/06/2022 Time: 07:27 Bed 8 Private MD: Diagnosis: Nausea with vomiting, unspecified;Diarrhea, unspecified;UTI/ Urinary tract infection, site not specified Presentation: 05/06 07:45 Chief complaint: Patient states: N/V/D and fever x 4 days, last fever 100.4 at 0200 jl7 this morning, took Tylenol, pt reports 6 weeks . Coronavirus screen: Vaccine status: Patient reports receiving the 2nd dose of the covid vaccine. diarrhea, fever, nausea, vomiting. Client presents with at least one sign or symptom that may indicate coronavirus-19. Standard/surgical mask placed on the client. Provider contacted for isolation considerations. Ebola Screen: No symptoms or risks identified at this time. Initial Sepsis Screen: Does the patient meet any 2 criteria? No. Patient's initial sepsis screen is negative. Does the patient have a suspected source of infection? No. Patient's initial sepsis screen is negative. Risk Assessment: Do you want to hurt yourself or someone else? Patient reports no desire to harm self or others. Onset of symptoms was May 03, 2022. 07:45 Method Of Arrival: Ambulatory [facility] 07:45 Acuity: ALONDRA 3 jl7 Triage Assessment: 07:47 General: Appears in no apparent distress. uncomfortable, Behavior is calm, cooperative, jl7 appropriate for age. Pain: Complains of pain in right lower quadrant and left lower quadrant Pain currently is 5 out of 10 on a pain scale. Neuro: Level of Consciousness is awake, alert, obeys commands, Oriented to person, place, time, situation. GI: Reports diarrhea, nausea, vomiting. : Denies burning with urination, pain with urination. 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 - Social history:: Smoking status: Patient denies any tobacco usage or history of. Screenin:47 Abuse screen: Denies threats or abuse. Denies injuries from another. Nutritional bp screening: No deficits noted. Tuberculosis screening: No symptoms or risk factors identified. Fall Risk None identified. Assessment: 07:47 General: SEE TRIAGE NOTE. bp 10:49 Reassessment: D/C HOME AMBULATORY. bp Vital Signs: 07:45 BP 121 / 76; Pulse 118; Resp 17; Temp 99.8; Pulse Ox 99% ; Weight 126.55 kg; Height 5 jl7 ft. 7 in. (170.18 cm); Pain 5/10; 10:32 Pulse 89; Resp 18; Temp 99.5; Pulse Ox 98% ; bp 07:45 Body Mass Index 43.70 (126.55 kg, 170.18 cm) jl7 ED Course: 07:27 Patient arrived in ED. ag3 07:29 Porter Sam, JENAE is Primary Nurse. bp 07:29 Eliot Castellano MD is Attending Physician. kdr 07:47 Triage completed. jl7 07:47 Patient has correct armband on for positive identification. Bed in low position. Call bp light in reach. Side rails up X2. Adult w/ patient. 07:49 Arm band placed on right wrist. jl7 08:17 Inserted saline lock: 20 gauge in right antecubital area, using aseptic technique. bp Blood collected. 10:49 No provider procedures requiring assistance completed. IV discontinued, intact, bp bleeding controlled, No redness/swelling at site. Pressure dressing applied. Administered Medications: 08:17 Drug: Zofran (Ondansetron) 4 mg Route: IVP; Site: right antecubital; bp 10:50 Follow up: Response: No adverse reaction bp 08:17 Drug: NS 0.9% 1000 ml Route: IV; Rate: 1 bolus; Site: right antecubital; bp 10:50 Follow up: IV Status: Completed infusion; IV Intake: 1000ml bp 10:31 Not Given (Physician Discretion): NS 0.9% 1000 ml IV at 1 bolus Per protocol; 1000 mL bp bolus Medication: 07:47 VIS not applicable for this client. bp Intake: 10:50 IV: 1000ml; Total: 1000ml. bp Outcome: 10:22 Discharge ordered by . kdr 10:49 Discharged to home ambulatory, with family. bp 10:49 Condition: stable 10:49 Discharge instructions given to patient, Instructed on discharge instructions, follow up and referral plans. medication usage, Demonstrated understanding of instructions, follow-up care, medications, Prescriptions given X 1. 10:50 Patient left the ED. bp Signatures: Eliot Castellano MD MD kdr Leal, Jahala RN RN jl7 Porter Sam RN RN bp Emily Grady ag3
--- NOTE | 2022-05-06 10:23 | EDPHYS ---
Physician Documentation [facility] Name: Reyna Resendiz Age: 31 yrs Sex: Female : 1990 Arrival Date: 05/06/2022 Time: 07:27 Bed 8 Private MD: ED Physician Eliot Castellano HPI: 05/06 08:38 This 31 yrs old Female presents to ER via Ambulatory with complaints of kdr Vomiting/Diarrhea. 08:38 The patient presents to the emergency department with nausea, that is mild, vomiting, kdr that is intermittent, diarrhea, that is intermittent, abdominal pain, of the suprapubic area, right lower quadrant and left lower quadrant, described as achy, crampy, dull, and does not radiate. Onset: The symptoms/episode began/occurred gradually, Left Sunday. Possible causes: unknown. The symptoms are aggravated by nothing. The symptoms are alleviated by nothing. Associated signs and symptoms: Pertinent positives: fever, Pertinent negatives: abdominal pain, anorexia, belching, constipation, dysuria, GI bleeding, hematuria, vaginal discharge. Severity of symptoms: At their worst the symptoms were mild in the emergency department the symptoms are unchanged. The patient has not experienced similar symptoms in the past. The patient has not recently seen a physician. 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 - Social history:: Smoking status: Patient denies any tobacco usage or history of. ROS: 08:38 Constitutional: Negative for fever, chills, and weight loss, Eyes: Negative for injury, kdr pain, redness, and discharge, Neck: Negative for injury, pain, and swelling, Cardiovascular: Negative for chest pain, palpitations, and edema, Respiratory: Negative for shortness of breath, cough, wheezing, and pleuritic chest pain, Back: Negative for injury and pain, : Negative for injury, bleeding, discharge, and swelling, MS/Extremity: Negative for injury and deformity, Skin: Negative for injury, rash, and discoloration, Neuro: Negative for headache, weakness, numbness, tingling, and seizure activity. Psych: Negative for depression, anxiety, suicide ideation, homicidal ideation, and hallucinations, Allergy/Immunology: Negative for hives, rash, and allergies, Endocrine: Negative for neck swelling, polydipsia, polyuria, polyphagia, and marked weight changes, Hematologic/Lymphatic: Negative for swollen nodes, abnormal bleeding, and unusual bruising. 08:38 Constitutional: Positive for body aches, chills, fever, malaise, poor PO intake. 08:38 Abdomen/GI: Positive for abdominal pain, nausea, vomiting, and diarrhea, abdominal cramps, Negative for abdominal distension, black/tarry stool, rectal pain, rectal bleeding, bowel incontinence. Exam: 08:38 Constitutional: This is a well developed, well nourished patient who is awake, alert, kdr and in no acute distress. Head/Face: Normocephalic, atraumatic. Eyes: Pupils equal round and reactive to light, extra-ocular motions intact. Lids and lashes normal. Conjunctiva and sclera are non-icteric and not injected. Cornea within normal limits. Periorbital areas with no swelling, redness, or edema. Neck: Trachea midline, no thyromegaly or masses palpated, and no cervical lymphadenopathy. Supple, full range of motion without nuchal rigidity, or vertebral point tenderness. No Meningismus. Chest/axilla: Normal chest wall appearance and motion. Nontender with no deformity. No lesions are appreciated. Cardiovascular: Regular rate and rhythm with a normal S1 and S2. No gallops, murmurs, or rubs. Normal PMI, no JVD. No pulse deficits. Respiratory: Lungs have equal breath sounds bilaterally, clear to auscultation and percussion. No rales, rhonchi or wheezes noted. No increased work of breathing, no retractions or nasal flaring. Abdomen/GI: Soft, non-tender, with normal bowel sounds. No distension or tympany. No guarding or rebound. No evidence of tenderness throughout. Back: No spinal tenderness. No costovertebral tenderness. Full range of motion. Skin: Warm, dry with normal turgor. Normal color with no rashes, no lesions, and no evidence of cellulitis. MS/ Extremity: Pulses equal, no cyanosis. Neurovascular intact. Full, normal range of motion. Neuro: Awake and alert, GCS 15, oriented to person, place, time, and situation. Cranial nerves II-XII grossly intact. Motor strength 5/5 in all extremities. Sensory grossly intact. Cerebellar exam normal. Normal gait. Psych: Awake, alert, with orientation to person, place and time. Behavior, mood, and affect are within normal limits. 08:38 Cardiovascular: Rate: tachycardic, Rhythm: regular, Pulses: no pulse deficits are appreciated, Edema: is not appreciated, JVD: Vital Signs: 07:45 BP 121 / 76; Pulse 118; Resp 17; Temp 99.8; Pulse Ox 99% ; Weight 126.55 kg; Height 5 jl7 ft. 7 in. (170.18 cm); Pain 5/10; 10:32 Pulse 89; Resp 18; Temp 99.5; Pulse Ox 98% ; bp 07:45 Body Mass Index 43.70 (126.55 kg, 170.18 cm) jl7 MDM: 08:38 Data reviewed: vital signs, nurses notes, lab test result(s). Counseling: I had a kdr detailed discussion with the patient and/or guardian regarding: the historical points, exam findings, and any diagnostic results supporting the discharge/admit diagnosis, lab results, radiology results, the need for outpatient follow up. 10:22 Patient medically screened. kdr 05/06 07:52 Order name: Basic Metabolic Panel; Complete Time: 10: kdr 05/06 07:52 Order name: CBC with Diff; Complete Time: 10: kdr 05/06 07:52 Order name: Quantitative Hcg; Complete Time: 10: kdr 05/06 08:26 Order name: Urine Dipstick-Ancillary; Complete Time: 10: EDMS 05/06 08:45 Order name: Flu; Complete Time: 10: kdr 05/06 08:46 Order name: SARS RAPID; Complete Time: 10:07 eb 05/06 07:52 Order name: IV Saline Lock; Complete Time: 08:26 kdr 05/06 07:52 Order name: Labs collected and sent; Complete Time: 08:26 kdr 05/06 07:52 Order name: NPO; Complete Time: 08:26 kdr 05/06 07:52 Order name: Urine Dipstick-Ancillary (obtain specimen); Complete Time: 08:26 kdr 05/06 07:52 Order name: PO challenge; Complete Time: 10:31 kdr Administered Medications: 08:17 Drug: Zofran (Ondansetron) 4 mg Route: IVP; Site: right antecubital; bp 10:50 Follow up: Response: No adverse reaction bp 08:17 Drug: NS 0.9% 1000 ml Route: IV; Rate: 1 bolus; Site: right antecubital; bp 10:50 Follow up: IV Status: Completed infusion; IV Intake: 1000ml bp 10:31 Not Given (Physician Discretion): NS 0.9% 1000 ml IV at 1 bolus Per protocol; 1000 mL bp bolus Disposition Summary: 05/06/22 10:22 Discharge Ordered Location: Home kdr Problem: new kdr Symptoms: have improved kdr Condition: Stable kdr Diagnosis - Nausea with vomiting, unspecified kdr - Diarrhea, unspecified kdr - UTI/ Urinary tract infection, site not specified kdr Followup: kdr - With: Private Physician - When: 2 - 3 days - Reason: If symptoms return, Further diagnostic work-up, Recheck today's complaints, Continuance of care, Re-evaluation by your physician Discharge Instructions: - Discharge Summary Sheet kdr - Nausea and Vomiting, Adult, [id number] kdr - Diarrhea, Adult, [id number] kdr Forms: - Medication Reconciliation Form kdr - Thank You Letter kdr - Work release form eb Prescriptions: - Zofran 4 mg Oral Tablet - take 1 tablet by ORAL route every 4-6 hours As needed; 12 tablet; Refills: 0, kdr Product Selection Permitted - Macrobid 100 mg Oral Capsule - take 1 capsule by ORAL route every 12 hours for 7 days; 14 capsule; Refills: 0, kdr Product Selection Permitted Signatures: Dispatcher [employer] Eliot Orta MD MD kdr Felice Perez RN RN jl7 Porter Sam RN RN bp
[2022-05-06 11:03] VITALS: BP 121/76
[2022-05-06 11:08] VITALS: TEMP 99.5; O2SAT 98
== END 2022-05-06 10:50 | disposition home or self-care (01) ==
LOC: ER 07:23
DX: R11.2 Nausea with vomiting, unspecified (principal); R19.7 Diarrhea, unspecified; N39.0 Urinary tract infection, site not specified; Z20.822 Contact with and (suspected) exposure to COVID-19; Z88.0 Allergy status to penicillin
CPT/HCPCS: 96361; 85025; 80048; 36415; 84702; 81003; 87804 ×2; 96374; 99284; 87811; J7030; J2405

== ENCOUNTER 2023-02-19 05:20 | Emergency (ER) | payer BC ==
--- OUTSIDE RECORDS SUMMARY | 2023-02-19 05:25 | XMS REPORT | Continuity of Care Document ---
:1990 Author Organization [facility] t Address [address] [place] [address] [address] [place] [address] Care Team Providers Name Role Phone Anson Yan Attending Clinician Unavailable BREANNE_Alyce Attending Clinician Unavailable BREANNE_Serenity Attending Clinician Unavailable Anson Yan Attending Clinician [phone] Velasquez Goldberg Attending Clinician Unavailable Velasquez Goldberg Attending Clinician [phone] Eliot Scherer Attending Clinician Anson Yan Admitting Clinician Unavailable BREANNE_Alyce Admitting Clinician Unavailable BREANNE_Serenity Admitting Clinician Unavailable Payers Payer Name Policy Type Policy Number Effective Date Expiration Date Viviane woodall [place] [id number] 2020 00:00:00 [place] [id number] BCBS ([place]) Problems This patient has no known problems. Allergies, Adverse Reactions, Alerts Allergy Allergy Status Severity Reaction(s) Onset Inactive Treating Comm ents Source Name Type Date Date Clinician penicill DA Active [place] [facility] [place] [facility] Allergy Active [facility] sub[facility] penicill penicill Active [facility] Social History Smoking Status Start Date Stop Date Source Social History [facility] Medications Ordered Filled Start Stop Current Ordering Indication Dosage Frequency Signature Comments Components Source Medication Medication Date Date Medication? Clinician (SIG) Name Name Lori MATTHEWS Yes 1 tab, PO, M emoria 800 mg- 160 5-21 BID, X 10 l mg oral 14:55: day, # 20 Pat nn tablet 00 tab, 0 Refill(s), Pharmacy: [id number], 167.64, cm, 12/10/21 9:32:00 CDT, Height, 117.273, kg, 12/10/21 9:32:00 CDT, Weight Lori MATTHEWS Yes 1 tab, PO, M emoria 800 mg- 160 5-21 BID, X 10 l mg oral 14:55: day, # 20 Pat nn tablet 00 tab, 0 Refill(s), Pharmacy: [id number], 167.64, cm, 12/10/21 9:32:00 CDT, Height, 117.273, kg, 12/10/21 9:32:00 CDT, Weight nitrofurant nitrofurant No nitrofuran [facility] monohydrate monohydrate monohydrat /macrocryst /macrocryst e/macrocry als 100 mg als 100 mg stals 100 capsule capsule mg capsule TAKE 1 TAKE 1 TAKE 1 CAPSULE BY CAPSULE BY CAPSULE BY MOUTH EVERY MOUTH EVERY MOUTH 12 HOURS 12 HOURS EVERY 12 FOR 7 DAYS FOR 7 DAYS HOURS FOR 7 DAYS ondansetron ondansetron No ondansetro [facility] HCl 4 mg HCl 4 mg n HCl 4 mg M edical tablet TAKE tablet TAKE tablet 1 TABLET BY 1 TABLET BY TAKE 1 MOUTH EVERY MOUTH EVERY TABLET BY 4-6 HOURS 4-6 HOURS MOUTH NEEDED NEEDED EVERY 4-6 FOR NAUSEA FOR NAUSEA HOURS NEEDED FOR NAUSEA benzonatate benzonatate No benzonatat [facility] 200 mg [...] FOR 5 DAYS HOURS FOR 5 DAYS methylpredn methylpredn No methylpred [facility] isolone 4 isolone 4 nisolone 4 Medical mg tablets mg tablets mg tablets in a dose in a dose in a dose pack TAKE pack TAKE pack TAKE DIRECTED DIRECTED ON THE BACK ON THE BACK DIRECTED OF THE OF THE ON THE PACKAGE PACKAGE BACK OF THE PACKAGE montelukast montelukast No montelukas [facility] 10 mg [...] DAYS TWICE A DAY FOR 10 DAYS benzonatate benzonatate No benzonatat [facility] 200 mg [...] FOR 5 DAYS HOURS FOR 5 DAYS methylpredn methylpredn No methylpred [facility] isolone 4 isolone 4 nisolone 4 Medical mg tablets mg tablets mg tablets in a dose in a dose in a dose pack TAKE pack TAKE pack TAKE DIRECTED DIRECTED ON THE BACK ON THE BACK DIRECTED OF THE OF THE ON THE PACKAGE PACKAGE BACK OF THE PACKAGE montelukast montelukast No montelukas [facility] 10 mg [...] DAYS TWICE A DAY FOR 10 DAYS benzonatate benzonatate No benzonatat [facility] 200 mg [...] FOR 5 DAYS HOURS FOR 5 DAYS methylpredn methylpredn No methylpred [facility] isolone 4 isolone 4 nisolone 4 Medical mg tablets mg tablets mg tablets in a dose in a dose in a dose pack TAKE pack TAKE pack TAKE DIRECTED DIRECTED ON THE BACK ON THE BACK DIRECTED OF THE OF THE ON THE PACKAGE PACKAGE BACK OF THE PACKAGE montelukast montelukast No montelukas [facility] 10 mg [...] DAYS TWICE A DAY FOR 10 DAYS benzonatate benzonatate No benzonatat [facility] 200 mg [...] MOUTH TWICE A DAY fluconazole fluconazole No 1 fluconazol [facility] 150 mg 150 mg e 150 mg Medical tablet Take tablet Take tablet 1 tablet 1 tablet Take 1 every 72 every 72 tablet hours by hours by every 72 oral route oral route hours by as needed. as needed. oral route as needed. ibuprofen ibuprofen No ibuprofen [facility] 600 mg [...] DAYS TWICE A DAY FOR 10 DAYS nitrofurant nitrofurant No nitrofuran [facility] monohydrate monohydrate monohydrat /macrocryst /macrocryst e/macrocry als 100 mg als 100 mg stals 100 capsule capsule mg capsule TAKE 1 TAKE 1 TAKE 1 CAPSULE BY CAPSULE BY CAPSULE BY MOUTH EVERY MOUTH EVERY MOUTH 12 HOURS 12 HOURS EVERY 12 FOR 7 DAYS FOR 7 DAYS HOURS FOR 7 DAYS ondansetron ondansetron No ondansetro [facility] HCl 4 mg HCl 4 mg n HCl 4 mg M edical tablet TAKE tablet TAKE tablet 1 TABLET BY 1 TABLET BY TAKE 1 MOUTH EVERY MOUTH EVERY TABLET BY 4-6 HOURS 4-6 HOURS MOUTH NEEDED NEEDED EVERY 4-6 FOR NAUSEA FOR NAUSEA HOURS NEEDED FOR NAUSEA nitrofurant nitrofurant No nitrofuran [facility] Medical monohydrate monohydrate monohydrat /macrocryst /macrocryst e/macrocry als 100 mg als 100 mg stals 100 capsule capsule mg capsule TAKE 1 TAKE 1 TAKE 1 CAPSULE BY CAPSULE BY CAPSULE BY MOUTH EVERY MOUTH EVERY MOUTH 12 HOURS 12 HOURS EVERY 12 FOR 7 DAYS FOR 7 DAYS HOURS FOR 7 DAYS ondansetron ondansetron No ondansetro [facility] HCl 4 mg HCl 4 mg n HCl 4 mg M edical tablet TAKE tablet TAKE tablet 1 TABLET BY 1 TABLET BY TAKE 1 MOUTH EVERY MOUTH EVERY TABLET BY 4-6 HOURS 4-6 HOURS MOUTH NEEDED NEEDED EVERY 4-6 FOR NAUSEA FOR NAUSEA HOURS NEEDED FOR NAUSEA bromphenira bromphenira No bromphenir [facility] mine-pseudo mine-pseudo amine-pseu Medical ephedrine-D ephedrine-D doephedrin M 2 mg-30 M 2 mg-30 e-DM 2 mg-10 mg/5 mg-10 mg/5 mg-30 mL oral mL oral mg-10 mg/5 syrup syrup mL oral syrup doxycycline doxycycline No doxycyclin [facility] hyclate 100 hyclate 100 e hyclate Medical mg capsule mg capsule 100 mg TAKE 1 TAKE 1 capsule CAPSULE BY CAPSULE BY TAKE 1 MOUTH TWICE MOUTH TWICE CAPSULE BY A DAY A DAY MOUTH TWICE A DAY ibuprofen ibuprofen No ibuprofen [facility] 600 mg 600 mg 600 mg Medical tablet TAKE tablet TAKE tablet 1 TABLET BY 1 TABLET BY TAKE 1 MOUTH EVERY MOUTH EVERY TABLET BY 6 TO 8 6 TO 8 MOUTH HOURS HOURS EVERY 6 TO NEEDED NEEDED 8 HOURS NEEDED metronidazo metronidazo No metronidaz [facility] le 0.75 % le 0.75 % ole 0.75 % Medical (37.5 mg/5 (37.5 mg/5 (37.5 mg/5 gram) gram) gram) vaginal gel vaginal gel vaginal INSERT 1 INSERT 1 gel INSERT APPLICATORF APPLICATORF 1 UL UL APPLICATOR VAGINALLY VAGINALLY FUL EVERY DAY EVERY DAY VAGINALLY EVERY DAY nitrofurant nitrofurant No nitrofuran [facility] monohydrate monohydrate monohydrat /macrocryst /macrocryst e/macrocry als 100 mg als 100 mg stals 100 capsule capsule mg capsule TAKE 1 TAKE 1 TAKE 1 CAPSULE BY CAPSULE BY CAPSULE BY MOUTH EVERY MOUTH EVERY MOUTH 12 HOURS 12 HOURS EVERY 12 FOR 7 DAYS FOR 7 DAYS HOURS FOR 7 DAYS ondansetron ondansetron No ondansetro [facility] HCl 4 mg HCl 4 mg n HCl 4 mg M edical tablet TAKE tablet TAKE tablet 1 TABLET BY 1 TABLET BY TAKE 1 MOUTH EVERY MOUTH EVERY TABLET BY 4-6 HOURS 4-6 HOURS MOUTH NEEDED NEEDED EVERY 4-6 FOR NAUSEA FOR NAUSEA HOURS NEEDED FOR NAUSEA bromphenira bromphenira No bromphenir [facility] mine-pseudo mine-pseudo amine-pseu Medical ephedrine-D ephedrine-D doephedrin M 2 mg-30 M 2 mg-30 e-DM 2 mg-10 mg/5 mg-10 mg/5 mg-30 mL oral mL oral mg-10 mg/5 syrup syrup mL oral syrup doxycycline doxycycline No doxycyclin [facility] hyclate 100 [...] 6 TO NEEDED NEEDED 8 HOURS NEEDED metronidazo metronidazo No metronidaz [facility] le 0.75 % le 0.75 % ole 0.75 % Medical (37.5 mg/5 (37.5 mg/5 (37.5 mg/5 gram) gram) gram) vaginal gel vaginal gel vaginal INSERT 1 INSERT 1 gel INSERT APPLICATORF APPLICATORF 1 UL UL APPLICATOR VAGINALLY VAGINALLY FUL EVERY DAY EVERY DAY VAGINALLY EVERY DAY nitrofurant nitrofurant No nitrofuran [facility] monohydrate monohydrate monohydrat /macrocryst /macrocryst e/macrocry als 100 mg als 100 mg stals 100 capsule capsule mg capsule TAKE 1 TAKE 1 TAKE 1 CAPSULE BY CAPSULE BY CAPSULE BY MOUTH EVERY MOUTH EVERY MOUTH 12 HOURS 12 HOURS EVERY 12 FOR 7 DAYS FOR 7 DAYS HOURS FOR 7 DAYS ondansetron ondansetron No ondansetro [facility] HCl 4 mg HCl 4 mg n HCl 4 mg M edical tablet TAKE tablet TAKE tablet 1 TABLET BY 1 TABLET BY TAKE 1 MOUTH EVERY MOUTH EVERY TABLET BY 4-6 HOURS 4-6 HOURS MOUTH NEEDED NEEDED EVERY 4-6 FOR NAUSEA FOR NAUSEA HOURS NEEDED FOR NAUSEA bromphenira bromphenira No bromphenir [facility] mine-pseudo mine-pseudo amine-pseu Medical ephedrine-D ephedrine-D doephedrin M 2 mg-30 M 2 mg-30 e-DM 2 mg-10 mg/5 mg-10 mg/5 mg-30 mL oral mL oral mg-10 mg/5 syrup syrup mL oral syrup doxycycline doxycycline No doxycyclin [facility] hyclate 100 [...] 6 TO NEEDED NEEDED 8 HOURS NEEDED metronidazo metronidazo No metronidaz [facility] le 0.75 % le 0.75 % ole 0.75 % Medical (37.5 mg/5 (37.5 mg/5 (37.5 mg/5 gram) gram) gram) vaginal gel vaginal gel vaginal INSERT 1 INSERT 1 gel INSERT APPLICATORF APPLICATORF 1 UL UL APPLICATOR VAGINALLY VAGINALLY FUL EVERY DAY EVERY DAY VAGINALLY EVERY DAY nitrofurant nitrofurant No nitrofuran [facility] monohydrate monohydrate monohydrat /macrocryst /macrocryst e/macrocry als 100 mg als 100 mg stals 100 capsule capsule mg capsule TAKE 1 TAKE 1 TAKE 1 CAPSULE BY CAPSULE BY CAPSULE BY MOUTH EVERY MOUTH EVERY MOUTH 12 HOURS 12 HOURS EVERY 12 FOR 7 DAYS FOR 7 DAYS HOURS FOR 7 DAYS ondansetron ondansetron No ondansetro [facility] HCl 4 mg HCl 4 mg n HCl 4 mg M edical tablet TAKE tablet TAKE tablet 1 TABLET BY 1 TABLET BY TAKE 1 MOUTH EVERY MOUTH EVERY TABLET BY 4-6 HOURS 4-6 HOURS MOUTH NEEDED NEEDED EVERY 4-6 FOR NAUSEA FOR NAUSEA HOURS NEEDED FOR NAUSEA bromphenira bromphenira No bromphenir [facility] mine-pseudo mine-pseudo amine-pseu Medical ephedrine-D ephedrine-D doephedrin M 2 mg-30 M 2 mg-30 e-DM 2 mg-10 mg/5 mg-10 mg/5 mg-30 mL oral mL oral mg-10 mg/5 syrup syrup mL oral syrup doxycycline doxycycline No doxycyclin [facility] hyclate 100 [...] 6 TO NEEDED NEEDED 8 HOURS NEEDED metronidazo metronidazo No metronidaz [facility] le 0.75 % le 0.75 % ole 0.75 % Medical (37.5 mg/5 (37.5 mg/5 (37.5 mg/5 gram) gram) gram) vaginal gel vaginal gel vaginal INSERT 1 INSERT 1 gel INSERT APPLICATORF APPLICATORF 1 UL UL APPLICATOR VAGINALLY VAGINALLY FUL EVERY DAY EVERY DAY VAGINALLY EVERY DAY nitrofurant nitrofurant No nitrofuran [facility] monohydrate monohydrate monohydrat /macrocryst /macrocryst e/macrocry als 100 mg als 100 mg stals 100 capsule capsule mg capsule TAKE 1 TAKE 1 TAKE 1 CAPSULE BY CAPSULE BY CAPSULE BY MOUTH EVERY MOUTH EVERY MOUTH 12 HOURS 12 HOURS EVERY 12 FOR 7 DAYS FOR 7 DAYS HOURS FOR 7 DAYS ondansetron ondansetron No ondansetro [facility] HCl 4 mg HCl 4 mg n HCl 4 mg M edical tablet TAKE tablet TAKE tablet 1 TABLET BY 1 TABLET BY TAKE 1 MOUTH EVERY MOUTH EVERY TABLET BY 4-6 HOURS 4-6 HOURS MOUTH NEEDED NEEDED EVERY 4-6 FOR NAUSEA FOR NAUSEA HOURS NEEDED FOR NAUSEA bromphenira bromphenira No bromphenir [facility] mine-pseudo mine-pseudo amine-pseu Medical ephedrine-D ephedrine-D doephedrin M 2 mg-30 M 2 mg-30 e-DM 2 mg-10 mg/5 mg-10 mg/5 mg-30 mL oral mL oral mg-10 mg/5 syrup syrup mL oral syrup doxycycline doxycycline No doxycyclin [facility] hyclate 100 [...] 6 TO NEEDED NEEDED 8 HOURS NEEDED metronidazo metronidazo No metronidaz [facility] le 0.75 % le 0.75 % ole 0.75 % Medical (37.5 mg/5 (37.5 mg/5 (37.5 mg/5 gram) gram) gram) vaginal gel vaginal gel vaginal INSERT 1 INSERT 1 gel INSERT APPLICATORF APPLICATORF 1 UL UL APPLICATOR VAGINALLY VAGINALLY FUL EVERY DAY EVERY DAY VAGINALLY EVERY DAY nitrofurant nitrofurant No nitrofuran [facility] o[facility]in Medical monohydrate monohydrate monohydrat /macrocryst /macrocryst e/macrocry als 100 mg als 100 mg stals 100 capsule capsule mg capsule TAKE 1 TAKE 1 TAKE 1 CAPSULE BY CAPSULE BY CAPSULE BY MOUTH EVERY MOUTH EVERY MOUTH 12 HOURS 12 HOURS EVERY 12 FOR 7 DAYS FOR 7 DAYS HOURS FOR 7 DAYS ondansetron ondansetron No ondansetro [facility] HCl 4 mg HCl 4 mg n HCl 4 mg M edical tablet TAKE tablet TAKE tablet 1 TABLET BY 1 TABLET BY TAKE 1 MOUTH EVERY MOUTH EVERY TABLET BY 4-6 HOURS 4-6 HOURS MOUTH NEEDED NEEDED EVERY 4-6 FOR NAUSEA FOR NAUSEA HOURS NEEDED FOR NAUSEA bromphenira bromphenira No bromphenir [facility] mine-pseudo mine-pseudo amine-pseu Medical ephedrine-D ephedrine-D doephedrin M 2 mg-30 M 2 mg-30 e-DM 2 mg-10 mg/5 mg-10 mg/5 mg-30 mL oral mL oral mg-10 mg/5 syrup syrup mL oral syrup doxycycline doxycycline No doxycyclin [facility] hyclate 100 [...] 6 TO NEEDED NEEDED 8 HOURS NEEDED metronidazo metronidazo No metronidaz [facility] le 0.75 % le 0.75 % ole 0.75 % Medical (37.5 mg/5 (37.5 mg/5 (37.5 mg/5 gram) gram) gram) vaginal gel vaginal gel vaginal INSERT 1 INSERT 1 gel INSERT APPLICATORF APPLICATORF 1 UL UL APPLICATOR VAGINALLY VAGINALLY FUL EVERY DAY EVERY DAY VAGINALLY EVERY DAY nitrofurant nitrofurant No nitrofuran [facility]in [facility] monohydrate monohydrate monohydrat /macrocryst /macrocryst e/macrocry als 100 mg als 100 mg stals 100 capsule capsule mg capsule TAKE 1 TAKE 1 TAKE 1 CAPSULE BY CAPSULE BY CAPSULE BY MOUTH EVERY MOUTH EVERY MOUTH 12 HOURS 12 HOURS EVERY 12 FOR 7 DAYS FOR 7 DAYS HOURS FOR 7 DAYS ondansetron ondansetron No ondansetro [facility] HCl 4 mg HCl 4 mg n HCl 4 mg M edical tablet TAKE tablet TAKE tablet 1 TABLET BY 1 TABLET BY TAKE 1 MOUTH EVERY MOUTH EVERY TABLET BY 4-6 HOURS 4-6 HOURS MOUTH NEEDED NEEDED EVERY 4-6 FOR NAUSEA FOR NAUSEA HOURS NEEDED FOR NAUSEA benzonatate benzonatate No benzonatat [facility] 200 mg [...] DAYS TWICE A DAY FOR 10 DAYS nitrofurant nitrofurant No nitrofuran [facility] monohydrate monohydrate monohydrat /macrocryst /macrocryst e/macrocry als 100 mg als 100 mg stals 100 capsule capsule mg capsule TAKE 1 TAKE 1 TAKE 1 CAPSULE BY CAPSULE BY CAPSULE BY MOUTH EVERY MOUTH EVERY MOUTH 12 HOURS 12 HOURS EVERY 12 FOR 7 DAYS FOR 7 DAYS HOURS FOR 7 DAYS ondansetron ondansetron No ondansetro [facility] HCl 4 mg HCl 4 mg n HCl 4 mg M edical tablet TAKE tablet TAKE tablet 1 TABLET BY 1 TABLET BY TAKE 1 MOUTH EVERY MOUTH EVERY TABLET BY 4-6 HOURS 4-6 HOURS MOUTH NEEDED NEEDED EVERY 4-6 FOR NAUSEA FOR NAUSEA HOURS NEEDED FOR NAUSEA Immunizations Ordered Immunization Filled Immunization Date Status Commen ts Source Name Name COVID-19, mRNA, COVID-19, mRNA, 2020-12-29 Completed [facility] LNP-S, PF, 30 LNP-S, PF, 30 00:00:00 mcg/0.3 mL dose mcg/0.3 mL dose ([employer]) - ([employer]) - ML ML COVID-19, mRNA, COVID-19, mRNA, 2020-12-29 Completed [facility] LNP-S, PF, 30 LNP-S, PF, 30 00:00:00 mcg/0.3 mL dose mcg/0.3 mL dose ([employer]) - ([employer]) - ML ML COVID-19, mRNA, COVID-19, mRNA, 2020-12-29 Completed [facility] LNP-S, PF, 30 LNP-S, PF, 30 00:00:00 mcg/0.3 mL dose mcg/0.3 mL dose ([employer]) - (Pf[employer]) - ML ML COVID-19, mRNA, COVID-19, mRNA, 2020-12-29 Completed [facility] LNP-S, PF, 30 LNP-S, PF, 30 00:00:00 mcg/0.3 mL dose mcg/0.3 mL dose (Pf[employer]) - ([employer]) - ML ML COVID-19, mRNA, COVID-19, mRNA, 2020-12-10 Completed [facility] LNP-S, PF, 30 LNP-S, PF, 30 00:00:00 mcg/0.3 mL dose mcg/0.3 mL dose ([employer]) - ([employer]) - ML ML COVID-19, mRNA, COVID-19, mRNA, 2020-12-10 Completed [facility] LNP-S, PF, 30 LNP-S, PF, 30 00:00:00 mcg/0.3 mL dose mcg/0.3 mL dose (Pf[employer]) - (Pf[employer]) - ML ML COVID-19, mRNA, COVID-19, mRNA, 2020-12-10 Completed [facility] LNP-S, PF, 30 LNP-S, PF, 30 00:00:00 mcg/0.3 mL dose mcg/0.3 mL dose ([employer]) - (Pf[employer]) - ML ML COVID-19, mRNA, COVID-19, mRNA, 2020-12-10 Completed [facility] LNP-S, PF, 30 LNP-S, PF, 30 00:00:00 mcg/0.3 mL dose mcg/0.3 mL dose (Pf[employer]) - (Pf[employer]) - ML ML influenza, influenza, 2017-04-12 Completed [facility] injectable, injectable, 00:00:00 quadrivalent quadrivalent influenza, influenza, 2017-04-12 Completed [facility] injectable, injectable, 00:00:00 quadrivalent quadrivalent influenza, influenza, 2017-04-12 Completed [facility] injectable, injectable, 00:00:00 quadrivalent quadrivalent influenza, influenza, 2017-04-12 Completed [facility] injectable, injectable, 00:00:00 quadrivalent quadrivalent influenza, influenza, 2017-04-12 Completed [facility] injectable, injectable, 00:00:00 quadrivalent quadrivalent influenza, influenza, 2017-04-12 Completed [facility] injectable, injectable, 00:00:00 quadrivalent quadrivalent influenza, influenza, 2017-04-12 Completed [facility] injectable, injectable, 00:00:00 quadrivalent quadrivalent influenza, influenza, 2017-04-12 Completed [facility] injectable, injectable, 00:00:00 quadrivalent quadrivalent influenza, influenza, 2017-04-12 Completed [facility] injectable, injectable, 00:00:00 quadrivalent quadrivalent influenza, influenza, 2017-04-12 Completed [facility] injectable, injectable, 00:00:00 quadrivalent quadrivalent influenza, influenza, 2017-04-12 Completed [facility] injectable, injectable, 00:00:00 quadrivalent quadrivalent influenza, influenza, 2017-04-12 Completed [facility] injectable, injectable, 00:00:00 quadrivalent quadrivalent influenza, influenza, 2017-04-12 Completed [facility] injectable, injectable, 00:00:00 quadrivalent quadrivalent influenza, influenza, 2017-04-12 Completed [facility] injectable, injectable, 00:00:00 quadrivalent quadrivalent influenza, influenza, 2017-04-12 Completed [facility] injectable, injectable, 00:00:00 quadrivalent quadrivalent influenza, influenza, 2017-04-12 Completed [facility] injectable, injectable, 00:00:00 quadrivalent quadrivalent Tdap Tdap 2017-03-06 Completed [facility] 00:00:00 Tdap Tdap 2017-03-06 Completed [facility] 00:00:00 Tdap Tdap 2017-03-06 Completed [facility] 00:00:00 Tdap Tdap 2017-03-06 Completed [facility] 00:00:00 Tdap Tdap 2017-03-06 Completed [facility] 00:00:00 Tdap Tdap 2017-03-06 Completed [facility] 00:00:00 Tdap Tdap 2017-03-06 Completed [facility] 00:00:00 Tdap Tdap 2017-03-06 Completed [facility] 00:00:00 Tdap Tdap 2017-03-06 Completed [facility] 00:00:00 Tdap Tdap 2017-03-06 Completed [facility] 00:00:00 Tdap Tdap 2017-03-06 Completed [facility] 00:00:00 Tdap Tdap 2017-03-06 Completed [facility] 00:00:00 Tdap Tdap 2017-03-06 Completed [facility] 00:00:00 Tdap Tdap 2017-03-06 Completed [facility] 00:00:00 Tdap Tdap 2017-03-06 Completed [facility] 00:00:00 Tdap Tdap 2017-03-06 Completed [facility] 00:00:00 Vital Signs Vital Name Observation Time Observation Value Comments Source BP Diastolic 2022-11-15 00:00:00 77 mm[Hg] [facility] BP Systolic 2022-11-15 00:00:00 113 mm[Hg] [facility] Body Weight 2022-11-15 00:00:00 303 [lb_av] [facility] BP Diastolic 2022-11-01 00:00:00 83 mm[Hg] [facility] BP Systolic 2022-11-01 00:00:00 130 mm[Hg] [facility] Body Weight 2022-11-01 00:00:00 300 [lb_av] [facility] BP Diastolic 2022-10-18 00:00:00 74 mm[Hg] [facility] BP Systolic 2022-10-18 00:00:00 114 mm[Hg] [facility] Body Weight 2022-10-18 00:00:00 298 [lb_av] [facility] BP Diastolic 2022-09-21 00:00:00 78 mm[Hg] [facility] Height 2022-09-21 00:00:00 67 [in_i] [facility] BP Systolic 2022-09-21 00:00:00 132 mm[Hg] [facility] Body Weight 2022-09-21 00:00:00 298 [lb_av] [facility] BP Diastolic 2022-08-23 00:00:00 72 mm[Hg] [facility] BP Systolic 2022-08-23 00:00:00 118 mm[Hg] [facility] Body Weight 2022-08-23 00:00:00 289 [lb_av] [facility] BP Diastolic 2022-07-26 00:00:00 84 mm[Hg] [facility] BP Systolic 2022-07-26 00:00:00 131 mm[Hg] [facility] Body Weight 2022-07-26 00:00:00 281 [lb_av] [facility] BP Diastolic 2022-06-28 00:00:00 83 mm[Hg] [facility] BP Systolic 2022-06-28 00:00:00 136 mm[Hg] [facility] Body Weight 2022-06-28 00:00:00 277 [lb_av] [facility] BP Diastolic 2022-06-01 00:00:00 72 mm[Hg] [facility] Height 2022-06-01 00:00:00 67 [in_i] [facility] BMI (Body Mass Index) 2022-06-01 00:00:00 43.1 kg/m2 [facility] BP Systolic 2022-06-01 00:00:00 122 mm[Hg] [facility] Body Weight 2022-06-01 00:00:00 275 [lb_av] [facility] BP Diastolic 2022-05-16 00:00:00 80 mm[Hg] [facility] Height 2022-05-16 00:00:00 67 [in_i] [facility] BMI (Body Mass Index) 2022-05-16 00:00:00 43.4 kg/m2 [facility] BP Systolic 2022-05-16 00:00:00 124 mm[Hg] [facility] Body Weight 2022-05-16 00:00:00 277 [lb_av] [facility] BP Diastolic 2022-05-11 00:00:00 74 mm[Hg] [facility] Height 2022-05-11 00:00:00 67 [in_i] [facility] BMI (Body Mass Index) 2022-05-11 00:00:00 42.8 kg/m2 [facility] BP Systolic 2022-05-11 00:00:00 122 mm[Hg] [facility] Body Weight 2022-05-11 00:00:00 273 [lb_av] [facility] BP Diastolic 2022-05-03 00:00:00 85 mm[Hg] [facility] Height 2022-05-03 00:00:00 67 [in_i] [facility] BP Systolic 2022-05-03 00:00:00 135 mm[Hg] [facility] Body Weight 2022-05-03 00:00:00 278 [lb_av] [facility] BP Diastolic 2022-03-01 00:00:00 76 mm[Hg] [facility] Height 2022-03-01 00:00:00 67 [in_i] [facility] BMI (Body Mass Index) 2022-03-01 00:00:00 41.5 kg/m2 [facility] BP Systolic 2022-03-01 00:00:00 120 mm[Hg] [facility] Body Weight 2022-03-01 00:00:00 265 [lb_av] [facility] BP Diastolic 2022-02-10 00:00:00 82 mm[Hg] [facility] Height 2022-02-10 00:00:00 67 [in_i] [facility] BMI (Body Mass Index) 2022-02-10 00:00:00 41.7 kg/m2 [facility] BP Systolic 2022-02-10 00:00:00 128 mm[Hg] [facility] Body Weight 2022-02-10 00:00:00 266 [lb_av] [facility] BP Diastolic 2022-01-27 00:00:00 78 mm[Hg] [facility] Height 2022-01-27 00:00:00 67 [in_i] [facility] BMI (Body Mass Index) 2022-01-27 00:00:00 41.5 kg/m2 [facility] BP Systolic 2022-01-27 00:00:00 138 mm[Hg] [facility] Body Weight 2022-01-27 00:00:00 265 [lb_av] [facility] BP Diastolic 2021-12-26 00:00:00 80 mm[Hg] [facility] Height 2021-12-26 00:00:00 67 [in_i] [facility] BP Systolic 2021-12-26 00:00:00 124 mm[Hg] [facility] BP Diastolic 2021-11-16 00:00:00 84 mm[Hg] [facility] Height 2021-11-16 00:00:00 67 [in_i] [facility] BMI (Body Mass Index) 2021-11-16 00:00:00 41 kg/m2 [facility] BP Systolic 2021-11-16 00:00:00 148 mm[Hg] [facility] Body Weight 2021-11-16 00:00:00 262 [lb_av] [facility] Systolic (mm Hg) 2021-12-10 14:32:00 Miguel coronado Naren Diastolic (mm Hg) 2021-12-10 14:32:00 [facility] orial Naren Height 2021-12-10 14:32:00 167.64 cm [facility] Weight 2021-12-10 14:32:00 [facility] BMI Calculated 2021-12-10 [facility] 2021-12-10 14:32:00 [facility] Respitory Rate 2021-12-10 14:32:00 Eugene Mcclelland Procedures Procedure Date / Time Performing Clinician Source Performed [id number] 2022-12-31 00:00:00 [facility] [id number] 2022-12-31 00:00:00 [facility] [id number] 2022-12-31 00:00:00 [facility] [id number] 2022-12-31 00:00:00 [facility] ULTRASOUND RE TO 2022-08-23 00:00:00 [facility] EVALUATION OF UTERUS PER FETUS US, obstetric, 2022-07-26 00:00:00 [facility] maternal evaluation + anatomy ABDOMINAL ULTRASOUND OF 2022-06-01 00:00:00 [facility] UTERUS (LESS THAN 14 WEEKS 0 DAYS) SINGLE OR FIRST FETUS ABDOMINAL ULTRASOUND OF 2022-05-16 00:00:00 [facility] UTERUS (LESS THAN 14 WEEKS 0 DAYS) SINGLE OR FIRST FETUS ABDOMINAL ULTRASOUND OF 2022-05-12 00:00:00 [facility] UTERUS (LESS THAN 14 WEEKS 0 DAYS) SINGLE OR FIRST FETUS ABDOMINAL ULTRASOUND OF 2022-02-10 00:00:00 [facility] UTERUS (LESS THAN 14 WEEKS 0 DAYS) SINGLE OR FIRST FETUS ABDOMINAL ULTRASOUND OF 2022-01-27 00:00:00 [facility] UTERUS (LESS THAN 14 WEEKS 0 DAYS) SINGLE OR FIRST FETUS unlisted imaging order 2021-11-16 00:00:00 [facility] Append[facility] Other [facility] Tons[facility] Medical Plan of Care Planned Activity Planned Date Details Comments Source Diagnostic Test Pending 2022-09-21 HIV 1+2 AB + HIV 1 [facility] 00:00:00 p24 Ag, qualitative immunoassay, serum [code = HIV 1+2 AB + HIV 1 p24 Ag, qualitative immunoassay, serum] Diagnostic Test Pending 2022-09-21 glucose tolerance [facility] 00:00:00 test, gestational, post-50G [code = glucose tolerance test, gestational, post-50G] Diagnostic Test Pending 2022-09-21 Grapefruit IgE Ab [facility] 00:00:00 [Units/volume] in Serum [code = 6131-7] Instructions [facility] Medical Encounters Start End Encounter Admission Attending Care Care Encounter Source Date/Time Date/Time Type Type Clinicians Facility Department ID 2022-12-30 2023-01-02 Inpatient QUINN Ann OB [id number] [facility] 01:53:00 12:40:00 [facility]22-12-30 2023-01-02 Inpatient QUINN Ann OB [id number] [facility] 01:53:00 12:40:00 [facility] 2022-12-19 2022-12-19 Outpatient [facility]_ PRIV PRIV 505 [id number] [facility] 00:00:00 00:00:00 Abel [id number] Medic al 2022-12-19 2022-12-19 Outpatient [facility]_ PRIV PRIV 505 [id number] [facility] 00:00:00 00:00:00 Abel [id number] Medic al 2022-12-19 2022-12-19 Outpatient [facility]_ PRIV PRIV 505 [id number] [facility] 00:00:00 00:00:00 Abel [id number] Medic al 2022-12-19 2022-12-19 Outpatient [facility]_ PRIV PRIV 505 [id number] [facility] 00:00:00 00:00:00 Abel [id number] Medic al 2022-12-18 2022-12-18 Outpatient [facility]_ PRIV PRIV 505 [id number] [facility] 00:00:00 00:00:00 Abel [id number] Medic al 2022-12-14 2022-12-14 Outpatient GC_[facility]WHAT[facility] PRIV PRIV 505 [id number] [facility] 00:00:00 00:00:00 _Abel [id number] [facility] [place] 2022-12-13 2022-12-13 Outpatient [facility]_ PRIV PRIV 505 [id number] [facility] 00:00:00 00:00:00 Abel [id number] Medic al 2022-11-23 2022-11-23 Outpatient [facility]_ PRIV PRIV 505 [id number] [facility] 00:00:00 00:00:00 Abel [id number] Medic al 2022-11-23 2022-11-23 Outpatient [facility]_ PRIV PRIV 505 [id number] [facility] 00:00:00 00:00:00 Abel [id number] Medic al 2022-11-23 2022-11-23 Outpatient [facility]_ PRIV PRIV 505 [id number] [facility] 00:00:00 00:00:00 Abel [id number] Medic al 2022-11-23 2022-11-23 Outpatient [facility]_ PRIV PRIV 505 [id number] [facility] 00:00:00 00:00:00 Abel [id number] Medic al 2022-11-23 2022-11-23 Outpatient GC_[facility] PRIV PRIV 505 [id number] [facility] 00:00:00 00:00:00 _Abel [id number] [facility] [place] 2022-11-23 2022-11-23 Outpatient [facility]_ PRIV PRIV 505 [id number] [facility] 00:00:00 00:00:00 Abel [id number] Medic al 2022-11-15 2022-11-15 [facility] 00:00:00 00:00:00 [facility] AUGUSTA Yan_ : [address], [place] [address] , Ph. 2022-11-01 2022-11-01 Outpatient [facility]_ PRIV PRIV 505 [id number] [facility] 00:00:00 00:00:00 Abel [id number] Medic al 2022-11-01 2022-11-01 Outpatient [facility]_ PRIV PRIV 505 [id number] [facility] 00:00:00 00:00:00 Abel [id number] Medic al 2022-11-01 2022-11-01 Outpatient [facility]_ PRIV PRIV 505 [id number] [facility] 00:00:00 00:00:00 Abel [id number] Medic al 2022-11-01 2022-11-01 [facility] 12 [facility] 00:00:00 00:00:00 [facility] - Medic al AUGUSTA Yan_ : [address], [place] [address] , Ph. 2022-10-19 2022-10-19 Outpatient [facility]_ PRIV PRIV 505 [id number] [facility] 00:00:00 00:00:00 Abel [id number] Medic al 2022-10-19 2022-10-19 Outpatient [facility]_ PRIV PRIV 505 [id number] [facility] 00:00:00 00:00:00 Abel [id number] Medic al 2022-10-19 2022-10-19 Outpatient [facility]_ PRIV PRIV 505 [id number] [facility] 00:00:00 00:00:00 Abel [id number] Medic al 2022-10-18 2022-10-18 Outpatient [facility]_ PRIV PRIV 505 [id number] [facility] 00:00:00 00:00:00 Abel [id number] Medic al 2022-10-18 2022-10-18 [facility] 29 [facility] 00:00:00 00:00:00 [facility] BREANNE Yan_LISA GODOY: [address], [place] [address] , Ph. 2022-10-12 2022-10-12 Outpatient [facility]_ PRIV PRIV 505 [id number] [facility] 00:00:00 00:00:00 Abel [id number] Medic al 2022-10-12 2022-10-12 Outpatient [facility]_ PRIV PRIV 505 [id number] [facility] 00:00:00 00:00:00 Abel [id number] Medic al 2022-09-21 2022-09-21 Outpatient [facility]_ PRIV PRIV 505 [id number] [facility] 00:00:00 00:00:00 Abel [id number] Medic al 2022-09-21 2022-09-21 [facility] 00:00:00 00:00:00 [facility] - Medic al MEAGAN Yan MD: [address] [place], [address], [place] [address] , Ph. 2022-09-20 2022-09-20 Outpatient [facility]_ PRIV PRIV 505 [id number] [facility] 00:00:00 00:00:00 Abel [id number] Medic al 2022-09-16 2022-09-16 Outpatient [facility]_ PRIV PRIV 505 [id number] [facility] 00:00:00 00:00:00 Abel [id number] Medic al 2022-08-23 2022-08-23 Outpatient [facility]_ PRIV PRIV 505 [id number] [facility] 00:00:00 00:00:00 Abel [id number] Medic al 2022-08-23 2022-08-23 [facility] 00:00:00 00:00:00 [facility] - Medic al MEAGAN Yan MD: [address], [address], [place] [address] , Ph. 2022-08-21 2022-08-21 Outpatient GC_[facility] PRIV PRIV 505 [id number] [facility] 00:00:00 00:00:00 _Abel [id number] [facility] 2022-08-21 2022-08-21 Outpatient GC_[facility]_ PRIV PRIV 505 [id number] [facility] 00:00:00 00:00:00 Abel [id number] Medic al 2022-08-18 2022-08-18 Outpatient [facility]_ PRIV PRIV 505 [id number] [facility] 00:00:00 00:00:00 Abel [id number] Medic al 2022-08-16 2022-08-16 Outpatient [facility]_ PRIV PRIV 505 [id number] [facility] 00:00:00 00:00:00 Abel [id number] Medic al 2022-08-14 2022-08-14 Outpatient [facility] PRIV PRIV 505 [id number] [facility] 00:00:00 00:00:00 _Abel [id number] [facility] 2022-07-26 2022-07-26 [facility] 04 [facility] 00:00:00 00:00:00 [facility] BREANNE Yan_SWKHOAOMC_ : [address], [place] [address] , Ph. 2022-06-28 2022-06-28 Outpatient GC_[facility]_ PRIV PRIV 505 [id number] [facility] 00:00:00 00:00:00 Abel [id number] Medic al 2022-06-28 2022-06-28 Outpatient [facility]_ PRIV PRIV 505 [id number] [facility] 00:00:00 00:00:00 Abel [id number] Medic al 2022-06-28 2022-06-28 Outpatient [facility]_ PRIV PRIV 505 [id number] [facility] 00:00:00 00:00:00 Abel [id number] Medic al 2022-06-28 2022-06-28 Outpatient [facility]_ PRIV PRIV 505 [id number] [facility] 00:00:00 00:00:00 Abel [id number] Medic al 2022-06-28 2022-06-28 Outpatient [facility]_ PRIV PRIV 505 [id number] [facility] 00:00:00 00:00:00 Abel [id number] Medic al 2022-06-28 2022-06-28 [facility] [id number] [facility] 00:00:00 00:00:00 [facility] - [facility] MEAGAN Yan MD: [address], [place] [address] , Ph. 2022-06-27 2022-06-27 Outpatient GC_[facility]_ PRIV PRIV 505 [id number] [facility] 00:00:00 00:00:00 Abel [id number] Medic al 2022-06-22 2022-06-22 Outpatient [facility]_ PRIV PRIV 505 [id number] [facility] 00:00:00 00:00:00 Abel [id number] Medic al 2022-06-01 2022-06-01 [facility] [id number] [facility] 00:00:00 00:00:00 [facility] - Medic al MEAGAN Yan MD: [address], [address], [place] [address] , Ph. 2022-05-25 2022-05-25 Outpatient [facility]_ PRIV PRIV 505 [id number] [facility] 00:00:00 00:00:00 Abel [id number] Medic al 2022-05-17 2022-05-17 Outpatient [facility]_ PRIV PRIV 505 [id number] [facility] 00:00:00 00:00:00 Abel [id number] Medic al 2022-05-16 2022-05-16 [facility] 00:00:00 00:00:00 [facility] - [facility] MEAGAN Yan MD: [address], [address], [place] [address] , Ph. 2022-05-12 2022-05-12 Outpatient [facility]_ PRIV PRIV 505 [id number] [facility] 00:00:00 00:00:00 Abel [id number] Medic al 2022-05-11 2022-05-11 Outpatient [facility]_ PRIV PRIV 505 [id number] [facility] 00:00:00 00:00:00 Abel [id number] Medic al 2022-05-11 2022-05-11 [facility] [id number] [facility] 00:00:00 00:00:00 [facility] MEAGAN Yan MD: [address] [facility], [address], [place] [address] , Ph. 2022-05-09 2022-05-09 Outpatient GC_[facility]_ PRIV PRIV 505 [id number] [facility] 00:00:00 00:00:00 Abel [id number] Medic al 2022-05-04 2022-05-04 Outpatient [facility]_ PRIV PRIV 505 [id number] [facility] 00:00:00 00:00:00 Abel [id number] Medic al 2022-05-03 2022-05-03 [facility] 12 [facility] 00:00:00 00:00:00 [facility] MEAGAN Yan MD: [address], [place] [address] , Ph. 2022-04-25 2022-04-25 Outpatient [facility]_ PRIV PRIV 505 [id number] [facility] 00:00:00 00:00:00 Abel [id number] Medic al 2022-04-21 2022-04-21 Outpatient GC_[facility]_ PRIV PRIV 505 [id number] [facility] 00:00:00 00:00:00 Abel [id number] Medic al 2022-03-24 2022-03-24 Outpatient [facility]_ PRIV PRIV 505 [id number] [facility] 00:00:00 00:00:00 Abel [id number] Medic al 2022-03-01 2022-03-01 Outpatient [facility]_ PRIV PRIV 505 [id number] [facility] 00:00:00 00:00:00 Abel [id number] Medic al 2022-03-01 2022-03-01 [facility] 10 [facility] 00:00:00 00:00:00 [facility] - Medic MEAGAN Regalado MD: [address], [place] [address] , Ph. 2022-03-01 2022-03-01 Outpatient Yuriy, PRIV PRIV [id number] [id number] 00:00:00 00:00:00 [facility] [id number] Esteban [id number] 2022-02-23 2022-02-23 Outpatient [facility]_ PRIV PRIV 505 [id number] [facility] 00:00:00 00:00:00 Abel [id number] Medic al 2022-02-17 2022-02-17 Outpatient Yusuf [facility] [id number] [facility] 12:22:00 12:22:[address] [place] [address] 2022-02-15 2022-02-15 Outpatient [facility]_ PRIV PRIV 505 [id number] [facility] 00:00:00 00:00:00 Abel [id number] Medic al 2022-02-10 2022-02-10 Outpatient [facility]_ PRIV PRIV 505 [id number] [facility] 02:05:00 02:05:00 Abel [id number] Medic al 2022-02-10 2022-02-10 Velasquez [facility] 22 [facility] 00:00:00 00:00:00 Nigel [facility] - Medic MEAGAN Lambert MD: [address] [facility]* [place], [address], [place] [address] , Ph. 2022-02-10 2022-02-10 Outpatient Yusuf PRIV PRIV [id number] 00:00:00 00:00:00 Velasquez [id number] Nigel [id number] 2022-02-09 2022-02-09 Outpatient [facility]_ PRIV PRIV 505 [id number] [facility] 05:13:00 05:13:00 Abel [id number] Medic al 2022-02-06 2022-02-06 Outpatient GC_[facility]_ PRIV PRIV 505 [id number] [facility] 02:00:00 02:00:00 Abel [id number] Medic al 2022-01-28 2022-01-28 Outpatient GC_[facility]_ PRIV PRIV 505 [id number] [facility] 05:09:00 05:09:00 Abel [id number] Medic al 2022-01-27 2022-01-27 Outpatient GC_[facility]_ PRIV PRIV 505 [id number] [facility] 03:13:00 03:13:00 Abel [id number] Medic al 2022-01-27 2022-01-27 [facility] 08 [facility] 00:00:00 00:00:00 [facility] Medic al AUGUSTA Yan_ : [address]* [place], [address], [place] [address] , Ph. 2022-01-27 2022-01-27 Outpatient Yuriy, PRIV PRIV [id number] 00:00:00 00:00:00 [facility] [id number] [facility] [id number] 2022-01-03 2022-01-03 Outpatient GC_[facility]_ PRIV PRIV 505 [id number] [facility] 02:38:00 02:38:00 Abel [id number] Medic al 2021-12-26 2021-12-26 Outpatient [facility]_ PRIV PRIV 505 [id number] [facility] 03:51:00 03:51:00 Abel [id number] Medic al 2021-12-26 2021-12-26 [facility] 06 [facility] 00:00:00 00:00:00 [facility] - Medic al MEAGAN Yan MD: [address]* [address], [address], [place] [address] , Ph. 2021-12-26 2021-12-26 Outpatient Yuriy, PRIV PRIV [id number] [id number] 00:00:00 00:00:00 [facility] [id number] Esteban [id number] 2021-12-25 2021-12-25 Outpatient [facility] PRIV PRIV 505 [id number] [facility] 05:47:00 05:47:00 _Abel [id number] [facility] 2021-12-23 2021-12-23 Outpatient GC_[facility]_ PRIV PRIV 505 [id number] [facility] 02:23:00 02:23:00 Abel [id number] Medic al 2021-12-15 2021-12-15 Outpatient GC_[facility] PRIV PRIV 505 [id number] [facility] 04:53:00 04:53:00 _Abel [id number] [facility] 2021-12-10 2021-12-11 Outpatient nullFlavo [facility] Urgent [id number] [facility] 14:10:00 04:59:59 r Care 00 l Charlee taylor 2021-12-10 2021-12-11 Outpatient nullFlavo MH Urgent [id number] [facility] 14:10:00 04:59:59 r Care 00 l Charlee taylor 2021-12-10 2021-12-10 Outpatient Scherer, MHMG MHMG [id number] 09:10:00 23:59:59 Eliot B 00 2021-12-10 2021-12-10 Outpatient MHIE MHIE [id number] [facility] 09:10:00 09:10:00 00 breanne Sneed 2021-11-17 2021-11-17 Outpatient GC_[facility] PRIV PRIV 505 [id number] [facility] 01:16:00 01:16:00 _Abel [id number] [facility] 2021-11-16 2021-11-16 Outpatient GC_[facility]_ PRIV PRIV 505 [id number] [facility] 01:36:00 01:36:00 Abel [id number] Medic al 2021-11-16 2021-11-16 Outpatient Yuriy, PRIV PRIV [id number] c-c 00:00:00 00:00:00 [facility] [id number] Esteban [id number] 2021-11-16 2021-11-16 [facility] 00:00:00 00:00:00 [facility] ashley Yan GC_LINDA_ : [address], [place] [address] , Ph. 2021-11-15 2021-11-15 Outpatient GC_[facility]_ PRIV PRIV 505 [id number] [facility] 12:06:00 12:06:00 Abel [id number] Medic al 2021-10-13 2021-10-13 Outpatient GC_[facility]_ PRIV PRIV 505 [id number] [facility] 10:19:00 10:19:00 Abel [id number] Medic al 2021-10-13 2021-10-13 Outpatient GC_[facility]_ PRIV PRIV [id number] [facility] 10:16:00 10:16:00 Abel [id number] Medic al 2021-10-12 2021-10-12 Outpatient GC_[facility]_ PRIV PRIV 505 [id number] [facility] 06:12:00 06:12:00 Abel [id number] Medic al 2021-10-12 2021-10-12 Outpatient PRIV PRIV [id number] [facility] 06:08:00 06:08:00 [id number] Medica l Results Test Description Test Time Test Comments Results Result Comments Source HGB HCT 2023-01-01 12:03:00 Test Item Value Reference Range Interpretation Comme nts HEMOGLOBIN (test code = HGB) 9.9 g/dL 10.1-13.8 L HEMATOCRIT (test code = HCT) 31.6 % 32.5-41.8 L AB [id number] 05:09:00 Test Item Value Reference Range Interpretation Comments AB TREPONEMA (test code = TREPAB) NONREACTIVE NONREACTIVE AB HIV 1 05:09:00 Test Item Value Reference Range Interpretation Comments AB HIV 1 2 (test NONREACTIVE NONREACTIVE Done by [facility] code = DHD13AM) 4th Gen HIV Ag/Ab Combo Screen AG HEPATITIS B [id number] 05:09:00 Test Item Value Reference Range Interpretation Comments AG HEPATITIS B SURFACE (test code NONREACTIVE NONREACTIVE = HBSAG) AB HEPATITIS C [id number] 05:09:00 Test Item Value Reference Range Interpretation Comments AB HEPATITIS C (test code = NONREACTIVE NONREACTIVE HCVAB) SIGNAL TO CUTOFF (test code = 0.11 <0.80 N CUTOFF) CBC W/AUTO [id number] 03:59:00 Test Item Value Reference Range Interpretation Comments WHITE BLOOD CELL (test code = WBC) 10.8 K/mm3 6.5-12.3 N RED BLOOD CELL (test code = RBC) 4.70 M/mm3 3.51-4.69 H HEMOGLOBIN (test code = HGB) 11.0 g/dL 10.1-13.8 N HEMATOCRIT (test code = HCT) 35.3 % 32.5-41.8 N MEAN CELL VOLUME (test code = MCV) 75.1 fL 84.6-96.6 L MEAN CELL HGB (test code = MCH) 23.4 pg 27.3-33.9 L MEAN CELL HGB CONCETRATION (test 31.2 gm/dL 32.0-34.2 L code = MCHC) RED CELL DISTRIBUTION WIDTH (test 14.1 % 12.2-16.3 N code = RDW) PLATELET COUNT (test code = PLT) 268 K/mm3 134-363 N MEAN PLATELET VOLUME (test code = 11.8 fL 9.2-12.7 N MPV) NEUTROPHIL % (test code = NT%) 66.5 % 57.9-77.3 N LYMPHOCYTE % (test code = LY%) 24.9 % 14.5-29.7 N MONOCYTE % (test code = MO%) 6.4 % 3.6-10.2 N EOSINOPHIL % (test code = EO%) 0.9 % 0.0-3.0 N BASOPHIL % (test code = BA%) 0.5 % 0.1-0.9 N NEUTROPHIL # (test code = NT#) 7.2 K/mm3 LYMPHOCYTE # (test code = LY#) 2.7 K/mm3 MONOCYTE # (test code = MO#) 0.7 K/mm3 EOSINOPHIL # (test code = EO#) 0.10 K/mm3 BASOPHIL # (test code = BA#) 0.1 K/mm3 RBC MORPHOLOGY REQUIRED (test code NORMAL NORMAL = RBCM) PLATELET MORPHOLOGY REQUIRED (test NORMAL NORMAL code = PLTMR) HIV 1+2 Ab+HIV1 p24 Ag [Presence] in Serum or Plasma by [id number] 00:00:00 Test Item Value Reference Range Interpretation Comments HIV Ag/Ab (test code = HIV non-reactive non-reactive Ag/Ab) [facility] [Mass/volume] in Serum or Plasma --post 50 g glucose 2022-10-19 00:00:00 Test Item Value Reference Range Interpretation Comments glu.1HR(glucola)preg. (test code = 121 mg/dL <130 glu.1HR(glucola)preg.) [facility] MedicalHIV 1+2 Ab+HIV1 p24 Ag [Presence] in Serum or Plasma by [id number] 00:00:00 Test Item Value Reference Range Interpretation Comments HIV Ag/Ab (test code = HIV non-reactive non-reactive Ag/Ab) [facility] MedicalGlucose [Mass/volume] in Serum or Plasma --post 50 g glucose 2022-10-19 00:00:00 Test Item Value Reference Range Interpretation Comments glu.1HR(glucola)preg. (test code = 121 mg/dL <130 glu.1HR(glucola)preg.) [facility] MedicalCBC panel - Blood by Automated [id number] 00:00:00 Test Item Value Reference Range Interpretation Comments WBC (test code = WBC) 8.1 10 3.7-12.0 RBC (test code = RBC) 4.47 10 3.60-5.50 HGB (test code = HGB) 12.0 g/dL 11.5-15.6 HCT (test code = HCT) 37.4 % 34.5-46.5 MCV (test code = MCV) 83.8 um 80.0-102.0 MCH (test code = MCH) 26.9 pg 25.0-34.1 MCHC (test code = MCHC) 32.1 g/dL 29.0-35.0 RDW (test code = RDW) 13.8 % 10.9-16.9 plt (test code = plt) 225 10 136-392 MPV (test code = MPV) 10.1 um 7.4-11.1 gran % (test code = gran %) 68.8 % 36.0-78.0 lymph % (test code = lymph %) 21.2 % 12.0-48.0 mono % (test code = mono %) 7.2 % 0.0-13.0 eos % (test code = eos %) 2 % 0-8 baso % (test code = baso %) 1 % 0-2 gran # (test code = gran #) 5.6 10 1.2-6.8 lymph # (test code = lymph #) 1.7 10 1.2-3.2 mono # (test code = mono #) 0.6 10 0.3-0.8 eos # (test code = eos #) 0.2 10 0.0-0.2 baso # (test code = baso #) 0.1 10 0.0-0.2 [facility] panel - Blood by Automated [id number] 00:00:00 Test Item Value Reference Range Interpretation Comments WBC (test code = WBC) 8.1 10 3.7-12.0 RBC (test code = RBC) 4.47 10 3.60-5.50 HGB (test code = HGB) 12.0 g/dL 11.5-15.6 HCT (test code = HCT) 37.4 % 34.5-46.5 MCV (test code = MCV) 83.8 um 80.0-102.0 MCH (test code = MCH) 26.9 pg 25.0-34.1 MCHC (test code = MCHC) 32.1 g/dL 29.0-35.0 RDW (test code = RDW) 13.8 % 10.9-16.9 plt (test code = plt) 225 10 136-392 MPV (test code = MPV) 10.1 um 7.4-11.1 gran % (test code = gran %) 68.8 % 36.0-78.0 lymph % (test code = lymph %) 21.2 % 12.0-48.0 mono % (test code = mono %) 7.2 % 0.0-13.0 eos % (test code = eos %) 2 % 0-8 baso % (test code = baso %) 1 % 0-2 gran # (test code = gran #) 5.6 10 1.2-6.8 lymph # (test code = lymph #) 1.7 10 1.2-3.2 mono # (test code = mono #) 0.6 10 0.3-0.8 eos # (test code = eos #) 0.2 10 0.0-0.2 baso # (test code = baso #) 0.1 10 0.0-0.2 [facility]knxcaeyfww [Mass/volume] in Serum or [id number] 00:00:00 Test Item Value Reference Range Interpretation Comments dating method: (test ultrasound (provide code = dating method:) date of US and gestational age on date of US below) enter date here: (test 01/05/2023 code = enter date here:) ethnicity: (test code = ethnicity:) insulin dependent N diabetic: (test code = insulin dependent diabetic:) number of fetuses: 1 (test code = number of fetuses:) race: (test code = white () race:) maternal serum AFP negative screen (test code = maternal serum AFP screen) [facility] and [id number] 00:00:00 Test Item Value Reference Range Interpretation Comments WBC (test code = 8.45 x10(3)/uL 4.00-10.10 WBC) RBC (test code = 5.15 x10(6)/uL 3.58-5.19 RBC) HGB (test code = 14.0 g/dL 11.0-15.5 HGB) HCT (test code = 43.4 % 31.5-44.8 HCT) MCV (test code = 84.3 fL 78.0-98.0 MCV) MCH (test code = 27.2 pg 25.2-32.6 MCH) MCHC (test code = 32.3 g/dL 31.0-34.7 MCHC) RDW (test code = 14.0 % 12.0-15.5 RDW) platelet count (test 221 x10(3)/uL 140-425 code = platelet count) lymphs (test code = 24.0 % 13.7-50.9 lymphs) monos (test code = 6.0 % 3.0-11.9 monos) eos (test code = 1.1 % 0.0-5.0 eos) basos (test code = 0.6 % 0.0-1.0 basos) MPV (test code = 11.2 fL 8.6-12.1 MPV) polys (test code = 68.1 % 37.1-78.1 polys) RPR (test code = non-reactive non-reactive RPR) immature 0.2 % 0.0-1.0 granulocytes (test code = immature granulocytes) ABO/Rh blood type O pos (test code = ABO/Rh blood type) antibody screen negative negative (test code = antibody screen) hep. B surf. Ag non-reactive non-reactive (test code = hep. B surf. Ag) rubella,IgG (test 333.1 [IU]/mL See_Comment [Automat ed code = rubella,IgG) message] The system which generated this result transmitted reference range : immune >9.9. Th e reference range was not used to interpret this result as normal/abnormal . [facility] MedicalCreatine [Mass/volume] in Serum or [id number] 00:00:00 Test Item Value Reference Range Interpretation Comments creatine, serum (1) (test code = 0.4 mg/dL <1.3 creatine, serum (1)) [facility] MedicalUrinalysis complete panel - [id number] 00:00:00 Test Item Value Reference Range Interpretation Comments urinalysis (UA) (test code = urinalysis tnp (UA)) [facility] MedicalBacteria identified in Urine by [id number] 00:00:00 Test Item Value Reference Range Interpretation Comments culture, urine (test code = see below no growth culture, urine) urinalysis (UA) (test code = tnp urinalysis (UA)) [facility]Free T4 and TSH panel - Serum or [id number] 00:00:00 Test Item Value Reference Range Interpretation Comments TSH (test code = TSH) 2.760 uIU/mL 0.178-4.530 free T4 (test code = free T4) 1.07 NG/dL 0.80-1.73 [facility] MedicalHIV 1+2 Ab+HIV1 p24 Ag [Presence] in Serum or Plasma by [id number] 00:00:00 Test Item Value Reference Range Interpretation Comments ethnicity: (test code = not provided ethnicity:) race: (test code = race:) unknown HIV Ag/Ab (test code = HIV non-reactive non-reactive Ag/Ab) [facility] 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 in Blood by Molecular genetics method [id number] 00:00:00 Test Item Value Reference Range Interpretation Comments report summary (test code see notes = report summary) report note (test code = see notes report note) trisomy 13 age-based risk 1/3,980 (0.03%) text (test code = trisomy 13 age-based risk text) trisomy 13 risk score text <1/10,000 (<0.01%) (test code = trisomy 13 risk score text) trisomy 13 result text low risk (test code = trisomy 13 result text) trisomy 18 age-based risk 1/1,263 (0.08%) text (test code = trisomy 18 age-based risk text) trisomy 18 risk score text <1/10,000 (<0.01%) (test code = trisomy 18 risk score text) trisomy 18 result text low risk (test code = trisomy 18 result text) trisomy 21 age-based risk 1/543 (0.18%) text (test code = trisomy 21 age-based risk text) trisomy 21 risk score text <1/10,000 (<0.01%) (test code = trisomy 21 risk score text) trisomy 21 result text low risk (test code = trisomy 21 result text) monosomy X age-based risk 1/255 (0.39%) text (test code = monosomy X age-based risk text) monosomy X risk score text <1/10,000 (<0.01%) (test code = monosomy X risk score text) monosomy X result text low risk (test code = monosomy X result text) 22Q11.2 deletion syndrome 1/2,000 population-based risk text (test code = 22Q11.2 deletion syndrome population-based risk text) 22Q11.2 deletion syndrome 1/3,100 risk score text (test code = 22Q11.2 deletion syndrome risk score text) 22Q11.2 deletion syndrome low risk result text (test code = 22Q11.2 deletion syndrome result text) triploidy result text low risk (test code = triploidy result text) gender of fetus (test code male = gender of fetus) fraction (test code 5.7% = fraction) footnotes (test code = see notes footnotes) [facility] MedicalChoriogonadotropin.beta subunit [Units/volume] in Serum or Plasma 2022-05-08 00:00:00 Test Item Value Reference Range Interpretation Comments HCG (test code = HCG) 4384 mIU/mL [facility] MedicalProgesterone Free [Mass/volume] in Serum or [id number] 00:00:00 Test Item Value Reference Range Interpretation Comments progesterone (test code = 17.80 NG/mL progesterone) [facility] MedicalChoriogonadotropin.beta subunit [Units/volume] in Serum or Plasma 2022-05-08 00:00:00 Test Item Value Reference Range Interpretation Comments HCG (test code = HCG) 4384 mIU/mL [facility] MedicalProgesterone Free [Mass/volume] in Serum or [id number] 00:00:00 Test Item Value Reference Range Interpretation Comments progesterone (test code = 17.80 NG/mL progesterone) [facility].beta subunit [Units/volume] in Serum or Plasma 2022-05-08 00:00:00 Test Item Value Reference Range Interpretation Comments HCG (test code = HCG) 4384 mIU/mL [facility]gesterone Free [Mass/volume] in Serum or [id number] 00:00:00 Test Item Value Reference Range Interpretation Comments progesterone (test code = 17.80 NG/mL progesterone) [facility]adotropin.beta subunit [Units/volume] in Serum or Plasma 2022-05-04 00:00:00 Test Item Value Reference Range Interpretation Comments HCG (test code = HCG) 1958 mIU/mL [facility] Free [Mass/volume] in Serum or [id number] 00:00:00 Test Item Value Reference Range Interpretation Comments progesterone (test code = 16.80 NG/mL progesterone) [facility].beta subunit [Units/volume] in Serum or Plasma 2022-05-04 00:00:00 Test Item Value Reference Range Interpretation Comments HCG (test code = HCG) 1958 mIU/mL [facility] Free [Mass/volume] in Serum or [id number] 00:00:00 Test Item Value Reference Range Interpretation Comments progesterone (test code = 16.80 NG/mL progesterone) [facility]Units/volume] in Serum or Plasma 2022-05-04 00:00:00 Test Item Value Reference Range Interpretation Comments HCG (test code = HCG) 1958 mIU/mL [facility] MedicalProgesterone Free [Mass/volume] in Serum or [id number] 00:00:00 Test Item Value Reference Range Interpretation Comments progesterone (test code = 16.80 NG/mL progesterone) [facility] [id number] 16:46:00 Test Item Value Reference Range Interpretation Comments SURGICAL (test code = SR) R UN DATE: 02/21/22 [facility] PAGE 1 RUN TIME: 1646 Specimen Inquiry RUN USER: INTERFACE P ATIENT: SHAE RESENDIZ LOC: [facility] U #: [id number] AGE/SX: 31/F ROOM: RE02/17/22REG DR: Velasquez Goldberg MD : 91 BED: DIS: STATUS: REG REF TLOC: SPEC #: [id number] RECD: 02/17/22 STATUS: BOLIVAR MORENO #: [id number] ROSALINA: 02/16/221419 [facility] DR: Velasquez Goldberg MD ENTERED: 02/17/22 SP TYPE: SURGICAL OTHR DR: ORDERED: ANATOMIC SPEC, SPEC TRACK, [id number] PROCEDURES: [id number] (02/17/22) TISSUES: A. PRODUCTS OF CONCEPTION - SPONTANEOUS/MISSED FINAL DIAGNOSIS A. UTERUS, PRODUCTS OF CONCEPTION, SUCTION DILATATION AND CURETTAGE: - Placental tissue and gestational endometrium present GROSS DESCRIPTION Received in formalin, labeled with the patient's name and date of , designated as"products of conception," are multiple fragments of dan to red-brown soft tissue gnpgzhev91 gm and measuring 9.0 x 8.0 x 0.7 cm in aggregate. Chorionic villi are grosslyidentified. No parts are grossly identified. [employer] sections are submittedin cassettes A1-A3. (hrr) Technical component performed at [facility],[place] [address] , [place] [address] Unless gross only, the diagnosis is based upon microscopic examination.Immunohistochemistr y: This test was developed and its performance characteristicsdetermined by this laboratory. It has not been approved nor does it need approval by [place] FDA. Appropriate positive and negative controls are reviewed and judged to beacceptable. This laboratory is certified under the Clinical Laboratory ImprovementAmendments (CLIA-88) as qualified to perform high complexity clinical laboratory testing. CLINICAL INFORMATION 02/16/22, OUT OF BODY 14:19, IN FORMALIN 14:20, MISSED . -------- Signed SIGNATURE ON FILE Trish Nicolas 02/21/22 1646 END OF REPORT Surgical pathology [id number] 16:46:00[facility] Medical[facility] [Type] in Blood 2022-02-17 00:00:00 Test Item Value Reference Range Interpretation Comments ABO/Rh blood type (test code = ABO/Rh O pos blood type) [facility] Date/Time Note Provider Source 2023-01-19 09:46:00-00:00 [id number] [facility] [address] [place], [place] [address] PATIENT NAME: SHAE RESENDIZ ADMIT DATE: 3 ACCOUNT NO: [id number] ROOM NO: 44 AGE: 32 SEX: F ADMITTING PHYSICIAN: Anson Yan MD ATTENDING PHYSICIAN: Anson Yan MD Provider Query QUERY TEXT: Condition Blood 360MD Query related questions should be directed to: Koki lee [facility] Coding Query Hotline Based on your clinical judgment, can you provide the known or suspected condition(s) that represent(s) the clinical indicators listed below? The medical record reflects the diagnosis/proced ure of [Insert diagnosis/procedure] and associated [In sert disease process, trauma or surgery]. [Insert so urce document(s) and date(s)]: The patient's Clinical Indicators include: EBL at delivery (ml's): 400 - OB Delivery Note 0 12/31/2022 Vaginal delivery - OB Delivery Note 12/31/2022 HEMATOCRIT (%) 31.6L - LABORATORY RESULTS HEMOGLOBIN (g/dL) 9.9L - LABORATORY RESULTS IRON-800 MCG - OB Discharge 3 Options provided: -- Blood loss anemia, Please specify the acuity (i.e., acute, chronic, acute on chronic). -- Anemia of chronic disease, Please specify the chronic disease. -- Iron deficiency anemia -- Chemotherapy induced anemia, Please specify d rug. -- Drug induced anemia, Please specify drug. -- Idiopathic aplastic anemia -- Neoplastic anemia -- Other - I will add my own diagnosis -- Dismiss - Not applicable / Not valid -- Dismiss - Clinically unable to determine / Un known -- Assign to another provider QUERY RESPONSE: The patient has iron deficiency anemia. Query created by: GÉNESIS LUNDBERG on 01/04 12:04 AM Electronically Signed by Anson Yan MD on 0 01/19/23 at 0946 PATIENT NAME: SHAE RESENDIZ [id number] 2023-01-02 08:02:00-00:00 [facility] ([facility]) OB Disch REPORT#:[id number] REPORT STATUS: Signed DATE:01/02/23 TIME: 08 PATIENT: SHAE RESENDIZ UNIT #: [id number] ROOM/BED: [address] : 91 AGE: 32 SEX: F ATTEND: Mary Grace Yan MD ADM AUTHOR: Anson Yan MD * ALL edits or amendments must be made on the [employer]/computer document * Subjective Subjective Admission EGA: Weeks: 39 Days: 1 EGA at delivery (wks/days): 39 weeks (2/) Status/day: post (Day2) Patient reports: Patient reports: Yes: normal lochia, pain management effective, tolerating po well, voiding well, tolerating ambulation. No: complaints. Objective General VS: Vital Signs Date Temp Pulse Resp B/P B/P Mean Pulse Ox FiO2 01/01-01/02 97.5-98.3 68-87 18 113-132/74-80 8 6.7-97.6 Last Documented: Result Date Time B/P 132/80 01/02 0742 B/P Mean 97.6 01/02 0742 Temp 97.5 01/02 0742 Pulse 78 01/02 0742 Resp 18 01/02 0742 PATIENT WEIGHT: Weight (lb): 308 Weight (oz): Weight (kg): 140.000 Physical Exam Lungs: unlabored breathing Neuro: Exam: alert, oriented x3, normal speech Abdomen: soft, no abnormal tenderness, no guardi ng Uterus: involution appropriate, non-tender Lochia: normal Episiotomy or laceration: we ll approximated edges, no inflammation, no drainage noted Results Findings/Data: Laboratory Tests: 01/01 1145 Hematology Hgb (10.1 - 13.8 g/dL) 9.9 L Hct (32.5 - 41.8 %) 31.6 L Results: labs reviewed, vital signs reviewed Treatments Procedures Treatments Procedures: Induction of labor, epidural, Discharge Summary General Assessment: nml progress Date of admission: Date of admission: 12/30/22 Admission diagnosis: Morbid Obesity Hospital course: induction of labor, spontaneous vag delivery, epidural anesthesia, nml postop/postpart care Procedures: epidural anesthesia, spontaneous vag inal deliv Discharge condition: stable Discharge to: Home/Self Care Discharge diagnosis: full-term uncomp delivery Discharge management: less than 30 mins Baby A: status: live born Gender: male 1 minute: 8 5 minutes: 9 Plan: routine care, circumcision toda y, discharge today Vaginal packing at delivery: No Discharge Instructions Instructions: routine instr sheet given, instr a nd warnings rev'd, specific instr as noted Diet: Regular Activity: Light Duty, No Winigan for 6 Wks Additional discharge routines: Attending Follow- Up, Wound/Dressing Care Wound/dressing care: Keep wound clean and dry Contraception discussed: abstinence for 4-6 week s, will discuss at PP visit Discharge meds: Continue taking these medications: PNV WITH FE FUMARATE/FA () 27 MG IRON-80 0 MCG TAB 1 TABLET ORAL DAILY. Prescriptions: none Rx drug database reviewed: yes Consultation(s): Consultation performed: anesthesia Add'l Follow-up Appointments Attending Physician: Attending Physician: Anson Yan MD Attending physician follow up timeframe: In 5-6 weeks Electronically Signed by Anson Yan MD on at 0811 RPT #:[id number] END OF REPORT 2022-12-31 16:46:00-00:00 [facility] OB Delivery Note REPORT#:[id number] REPORT STATUS: Signed DATE:12/31/22 TIME: 1646 PATIENT: SHAE RESENDIZ UNIT #: [id number] ROOM/BED: [address] : 91 AGE: 32 SEX: F ATTEND: Mary Grace Yan MD ADM AUTHOR: Nancy Rubio MD * ALL edits or amendments must be made on the el [employer]/computer document * OB Delivery Nursing Documentation Review Nursing data: The data set between the solid lines has been im ported from nursing documentation. Any exceptions have been noted be low under Provider comments. _ ROM date: 12/31/22 ROM time: 1235 Membranes rupture method: AROM Amniotic fluid color: Clear Amniotic fluid amount: Steroids prior to arrival: Antibiotic prophylaxis given: Post hemorrhage risk score: LowRisk Delivery date A: Delivery time A: Birthweight (gm) infant A: Weight (lb) A: Weight (oz) A: Gender infant A: Male 1 minute A: 5 minutes A: 10 minutes A: Cord pH obtained A: Vacuum time A: Vacuum # pulls A: Vacuum # popoffs infant A: QBL at delivery: __ Provider comments on imported nursing data: [] Infant B (add'l data): The data set between the solid lines has been im ported from nursing documentation. Any exceptions have been noted be low under Provider comments. ___ Delivery date infant B: Delivery time B: Birthweight (gm) B: Weight (lb) B: Weight (oz) B: Gender infant B: 1 minute infant B: 5 minutes B: 10 minutes B: Cord pH obtained B: Vacuum time B: Vacuum # pulls B: Vacuum # popoffs B: ____ Provider comments on imported nursing data: [] Pre-delivery Admission EGA: Weeks: 39 Days: 1 Blood Loss/Details Blood loss at delivery: <1K: no sx hypovol=no he m Cause of bleeding: uterine atony w/o hemorr EBL at delivery (ml's): 400 Baby A Information Baby A information Delivery date: 12/31/22 status: live born Wt of baby: not yet available Gender: male 1 minute: 8 5 minutes: 9 Presentation: vertex Nuchal cord Baby A Nuchal cord: yes (tight and cut), double Vaginal Delivery Vaginal Delivery Vaginal delivery: Labor: induced Amniotic fluid: clear Episiotomy: none Episiotomy repair: no Laceration repair: 3-0 suture Placenta: spontaneous Post delivery meds used: oxytocin, methergine Count: correct Vaginal packing: No Mother's condition: mother stable Infant's condition: infant stable in room Lacerations: Perineal laceration(s): 1st Degree w/labia/skin Electronically Signed by Nancy Rubio MD on 12/21 08/14 at 1649 RPT #:[id number] END OF REPORT 2022-12-31 12:42:00-00:00 [facility] ([facility]) OB Intrapart Prog Note REPORT#:[id number] REPORT STATUS: Signed DATE:12/31/22 TIME: 1242 PATIENT: SHAE RESENDIZ UNIT #: [id number] ROOM/BED: [address] : 91 AGE: 32 SEX: F ATTEND: Mary Grace Yan MD ADM AUTHOR: Nancy Rubio MD * ALL edits or amendments must be made on the el [employer]/computer document * Subjective Subjective Patient reports: Patient reports: No complaints Objective Nursing Documentation Review Nursing data: The data set between the solid lines has been im ported from nursing documentation. Any exceptions have been noted be low under Provider comments. __ ROM date: ROM time: __ Provider comments on imported nursing data: [] General VS: Last Documented: Result Date Time B/P Mean 78.0 12/31 1145 B/P 106/64 12/31 1145 Pulse 71 12/31 1145 Temp 98.0 12/31 0707 Resp 20 12/31 0707 Vital Signs Date Temp Pulse Resp B/P B/P Mean Pulse Ox FiO2 12/30-12/31 97.3-98.1 63-133 18-20 95-134/52-80 68.0-97.0 PATIENT WEIGHT: Weight (lb): 308 Weight (oz): Weight (kg): 140.000 Dietitian nutrition assessment The data set between the solid lines has been im ported from the dietitian's assessment. BMI Calculated: 48.23 Nutrition related diagnosis: Nutrition diagnosis details: Nutrition problem: Nutrition etiology: Nutrition signs and symptoms: Nutrition prescription: Dietitian name: Assessment completed: Objective Cervical/ exam: Dilatation (cm): 7 Effacement (%): 80 station: - 1 presentation: cephalic Pelvis exam: Clinically adequate for this fetus: yes Uterine activity: Monitor: toco Frequency (description): rare Current oxytocin: Indication: induction Infusion rate: 36.00 Procedures: artificial rupture memb, intrauterin e press cath FHR Evaluation Baby A: Baby A baseline: 120 bpm Baby A variability: moderate 6-25 bpm Baby A accelerations: 15 X 15 Baby A FHR category: category 1 Diagnosis, Assessment Plan Assessment: normal FHR pattern, slow progress of labor Plan: continue labor induction, epidural anesthe dwayne Electronically Signed by Nancy Rubio MD on 12/21 08/14 at 1244 RPT #:[id number] END OF REPORT 2022-12-31 08:00:00-00:00 [facility] ([facility]) Clinical Note REPORT#:[id number] REPORT STATUS: Signed DATE:12/31/22 TIME: 08 PATIENT: SHAE RESENDIZ UNIT #: [id number] ROOM[facility]BED: [facility] : 91 AGE: 32 SEX: F ATTEND: Mary Grace Yan MD ADM AUTHOR: Patricio Armstrong MD * ALL edits or amendments must be made on the el [employer]/computer document * Clinical Note Note: Comfortable vss afeb cat 1 /-3 per RN at 39.2 with siup and LGA undergoing IOL. RFS Discussed slow progression and possible CPD. Continue current mgt. Electronically Signed by Patricio Armstrong MD on at 0802 RPT #:[id number] END OF REPORT 2022-12-30 19:27:00-00:00 [facility] ([facility]) Clinical Note REPORT#:[id number] REPORT STATUS: Signed DATE:12/30/22 TIME: 1926 PATIENT: SHAE RESENDIZ UNIT #: [id number] [facility] AGE: 32 SEX: F ATTEND: Mary Grace Yan MD ADM AUTHOR: Patricio Armstrong MD * ALL edits or amendments must be made on the el [employer]/computer document * Clinical Note Note: Comfortable Cat 1 Plan discussed with pm staff Electronically Signed by Patricio Armstrong MD on at 1927 RPT #:[id number] END OF REPORT 2022-12-30 18:00:00-00:00 [facility] ([facility]) Clinical Note REPORT#:[id number] REPORT STATUS: Signed DATE:12/30/22 TIME: 1800 PATIENT: SHAE RESENDIZ UNIT #: [id number] ROOM/BED: [facility] : 91 AGE: 32 SEX: F ATTEND: Mary Grace Yan MD ADM AUTHOR: Patricio Armstrong MD * ALL edits or amendments must be made on the [employer] document * Clinical Note Note: Comfortable with epidural vss afeb 4/50/-3/vtx/intact Cat 1 at 39.1 admitted for IOL. Prior elevated BMI LGA Plan continue with pitocin induction. Electronically Signed by Patricio Armstrong MD on at 1801 RPT #:[id number] END OF REPORT 2022-12-30 08:12:00-00:00 [facility] ([facility]) Clinical Note REPORT#:[id number] REPORT STATUS: Signed DATE:12/30/22 TIME: 811 PATIENT: SHAE RESENDIZ UNIT #: [id number] ROOM/BED: [address] : 91 AGE: 32 SEX: F ATTEND: Mary Grace Yan MD ADM AUTHOR: Patricio Armstrong MD * ALL edits or amendments must be made on the [employer] document * Clinical Note Note: Chart reviewed Plan discussed with patient Electronically Signed by Patricio Armstrong MD on at 0814 RPT #:[id number] END OF REPORT 2022-12-30 06:51:00-00:00 [facility] ([facility]) OB Admission / H P REPORT#:[id number] REPORT STATUS: Signed DATE:12/30/22 TIME: 650 PATIENT: SHAE RESENDIZ UNIT #: [id number] ROOM/BED: [address] : 91 AGE: 32 SEX: F ATTEND: Mary Grace Yan MD ADM AUTHOR: Stephanie Resendiz MD * ALL edits or amendments must be made on the [employer] document * OB History Chief complaint: scheduled induction Current : Admission EGA (weeks) 39 Admission EGA (days) 1 Labs: Blood type: O Rh: positive Rubella: immune Hepatitis B: negative HIV: negative STD: negative Syphilis: currently negative GBS: negative Past History Past Medical History: Reports: Kidney disease/stones. Past Surgical History: Reports: Appendectomy, Bariatric procedure, Tons illectomy. Smoking status for patients 13 years old or olde r: Never Smoker Other Social History Good social support Allergies: Coded Allergies: penicillin G (Mild, Rash 12/30/22) Objective General VS: Last Documented: Result Date Time B/P Mean 79.0 12/30 0300 B/P 108/65 12/30 0300 Temp 97.9 12/30 0300 Pulse 86 12/30 0300 Vital Signs Date Temp Pulse Resp B/P B/P Mean Pulse Ox FiO2 12/30 97.9 86 108/65 79.0 PATIENT WEIGHT: Weight (lb): 308 Weight (oz): Weight (kg): 140.000 Physical Exam HEENT: normocephalic w/o injury Lungs: unlabored breathing Neuro: Exam: alert, oriented x3, normal speech Abdomen: gravid, soft Uterine activity: Monitor: toco Frequency (description): rare Pelvic exam: Pelvis clinically adequate: yes Cervical/ exam: Dilatation (cm): 5 Effacement (%): 50 Est wt (gms): 3800 station: - 3 presentation: cephalic Membranes: Membranes: Intact Baby A: Baby A baseline: 120 bpm Baby A variability: moderate 6-25 bpm Baby A accelerations: 15 X 15 Baby A FHR category: category 1 Results Findings/Data: Laboratory Tests: 12/30 0330 Hematology WBC (6.5 - 12.3 K/mm3) 10.8 RBC (3.51 - 4.69 M/mm3) 4.70 H Hgb (10.1 - 13.8 g/dL) 11.0 Hct (32.5 - 41.8 %) 35.3 MCV (84.6 - 96.6 fL) 75.1 L MCH (27.3 - 33.9 pg) 23.4 L MCHC (32.0 - 34.2 gm/dL) 31.2 L RDW (12.2 - 16.3 %) 14.1 Plt Count (134 - 363 K/mm3) 268 MPV (9.2 - 12.7 fL) 11.8 Neut % (Auto) (57.9 - 77.3 %) 66.5 Lymph % (Auto) (14.5 - 29.7 %) 24.9 [place] % (Auto) (3.6 - 10.2 %) 6.4 Eos % (Auto) (0.0 - 3.0 %) 0.9 Baso % (Auto) (0.1 - 0.9 %) 0.5 Neut # (Auto) (K/mm3) 7.2 Lymph # (Auto) (K/mm3) 2.7 [place] # (Auto) (K/mm3) 0.7 Eos # (Auto) (K/mm3) 0.10 Baso # (Auto) (K/mm3) 0.1 Serology Treponema pallidum Ab (NONREACTIVE) NONREACTIVE Hep Bs Antigen (NONREACTIVE) NONREACTIVE Hepatitis C Antibody (NONREACTIVE) NONREACTIVE Hep C Ab Signal/Cutoff (<0.80) 0.11 HIV 1 2 Antibody (NONREACTIVE) NONREACTIVE Diagnosis, Assessment Plan Diagnosis, Assessment Plan Free Text A P: 32yo @ 39w1d presents for induction for mat ernal obesity -LGA -reassuring FHT -favorable cx Plan: admit to inpatient, induction of labor, fe silvana surveillance Reason-sched induction: maternal obesity Consultation(s): Consultation performed: anesthesia Plan discussed with: nurse Electronically Signed by Stephanie Resendiz MD on at 0701 RPT #:[id number] END OF REPORT
[2023-02-19] MEDS ORDERED: METOCLOPRAMIDE 10 MG/2mL INJ ONE (06:00)
[2023-02-19] MEDS ORDERED: FAMOTIDINE 20 MG/2 ML VIAL IV ONE (06:01)
[2023-02-19] MEDS ORDERED: KETOROLAC 30 MG/ML INJ ONE (06:01)
[2023-02-19] MEDS ORDERED: NA CHLORIDE 0.9% 1,000 ML ONE (06:01)
[2023-02-19] MEDS ORDERED: ONDANSETRON 4 MG/2 ML VIAL ONE (06:01)
[2023-02-19 06:13] LABS: Absolute Lymphocytes (CBC) 0.5 K/uL (0.7-4.9); Hematocrit 35.4 % (36.0-45.0); Lymphocytes % 9.2 % (15.3-44.8); RBC Red Blood Cell Count 5.05 M/uL (3.86-4.86)
[2023-02-19 06:19] LABS: Specific Gravity 1.028 (1.005-1.030)
[2023-02-19 06:20] LABS: Specific Gravity 1.028 (1.005-1.030); Urine Bacteria None Seen /HPF (<20); Urine Bilirubin NEGATIVE (Negative); Urine Blood 1+ (Negative); Urine Clarity Extremely Turbid (Clear); Urine Color Yellow (Yellow); Urine Glucose NEGATIVE (Negative); Urine Mucus 1+ /HPF (None Seen); Urine Protein TRACE (Negative); Urine RBC <5 /HPF (None Seen); Urine Urobilinogen Normal (Normal); Urine pH 5.5 (5.0-7.0)
[2023-02-19 06:27] LABS: SARS-CoV-2 Antigen Rapid Res Positive (Negative)
[2023-02-19 06:32] LABS: Albumin 3.4 g/dL (3.4-5.0); Bilirubin Total 0.8 mg/dL (0.2-1.0); Potassium 3.6 mEq/L (3.5-5.1); Protein, Total 7.5 g/dL (6.4-8.2)
[2023-02-19] MEDS ORDERED: ACETAMINOPHEN 500 MG TAB ONE (06:54)
--- NOTE | 2023-02-19 07:10 | RAD REPORT ---
EXAM DESCRIPTION: CT - Abdomen Pelvis W Contrast - 02/19/2023 6:57 am CLINICAL HISTORY: Abdominal pain COMPARISON: 2020 TECHNIQUE: Computed axial tomography of the abdomen pelvis was obtained. 100 cc Isovue-300 was admin istered intravenously. Oral contrast was not requested which limits evaluation of bowel and appendix All CT scans are performed using dose optimization technique as appropriate and may include automated exposure control or mA/KV adjustment according to patient size. FINDINGS: Postsurgical changes involve stomach. The gallbladder is mildly distended. Multiple gallstones. Gallbladder wall does not appear thickened The liver, spleen, pancreas, adrenal and kidneys appear unremarkable. There is no evidence of diverticulitis. Small umbilical hernia. Normal appendix. No adnexal mass IMPRESSION: Gallbladder distention with cholelithiasis.
[2023-02-19 07:26] LABS: Anisocytosis 1+; Blood Morphology Comment NOTED (NOT SEEN); Platelet Estimate ADEQ; White Blood Cell Scan OK (OK)
--- NOTE | 2023-02-19 07:43 | RAD REPORT ---
EXAM DESCRIPTION: US - Abdomen Exam Limited - 02/19/2023 7:07 am CLINICAL HISTORY: Abdominal pain. COMPARISON: CT abdomen February 19, 2023 FINDINGS: Cholelithiasis. Mild gallbladder distention. Gallbladder wall not thickened The biliary tree is normal caliber. IMPRESSION: Cholelithiasis with mild gallbladder wall distention. No evidence cholecystitis
--- NOTE | 2023-02-19 07:50 | EDPHYS ---
Physician Documentation [facility] Name: Reyna Resendiz Age: 32 yrs Sex: Female : 1990 Arrival Date: 02/19/2023 Time: 05:20 Bed 15 Private MD: ED Physician Joel Gomez HPI: 02/19 05:25 This 32 yrs old Female presents to ER via Unassigned with complaints of Fever. sp4 05:27 PSHx: gastric sleeve; knee surgery; Tonsillectomy. sp4 05:49 32-year-old female who recently had spontaneous vaginal delivery 7 weeks ago presents sp4 with 2 days of headache fever at home there is subjective right upper quadrant abdominal pain and nausea. No history of cholecystectomy. 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 - Social history:: Smoking status: Patient denies any tobacco usage or history of. - Family history:: not pertinent. ROS: 05:49 Constitutional: Negative for chills, and weight loss, positive for fever Eyes: sp4 Negative for injury, pain, redness, and discharge, Neck: Negative for injury, pain, and swelling, Cardiovascular: Negative for chest pain, palpitations, and edema, Respiratory: Negative for shortness of breath, cough, wheezing, and pleuritic chest pain, Abdomen/GI: Negative for vomiting, diarrhea, and constipation, positive for right upper quadrant abdominal pain and nausea Back: Negative for injury and pain. 05:49 All other systems are negative. Exam: 05:49 Constitutional: This is a well developed, well nourished patient who is awake, alert, sp4 and in no acute distress. Patient is febrile and tachycardic Head/Face: Normocephalic, atraumatic. Eyes: Pupils equal round and reactive to light, extra-ocular motions intact. Lids and lashes normal. Conjunctiva and sclera are not injected. Cornea within normal limits. Periorbital areas with no swelling, redness, or edema. ENT: Nares patent. No nasal discharge, no septal abnormalities noted. Tympanic membranes are normal and external auditory canals are clear. Oropharynx with no redness, swelling, or masses, exudates, or evidence of obstruction, uvula midline. Mucous membranes moist. Neck: Trachea midline, no thyromegaly or masses palpated, and no cervical lymphadenopathy. Supple, full range of motion without nuchal rigidity, or vertebral point tenderness. Chest/axilla: Normal chest wall appearance and motion. Nontender with no deformity. No lesions are appreciated. Cardiovascular: Regular rate and rhythm with a normal S1 and S2. No gallops, murmurs, or rubs. Normal PMI, no JVD. No pulse deficits. Respiratory: Lungs have equal breath sounds bilaterally, clear to auscultation and percussion. No rales, rhonchi or wheezes noted. No increased work of breathing, no retractions or nasal flaring. Abdomen/GI: Soft, positive right upper quadrant abdominal tenderness, no distention, no rigidity, no tenderness, positive obese abdomen Back: No spinal tenderness. No costovertebral tenderness. Skin: Warm, dry with normal turgor. Normal color with no rashes, no lesions, and no evidence of cellulitis. MS/ Extremity: Pulses equal, no cyanosis. Neurovascular intact. Full, normal range of motion. Neuro: Awake and alert, GCS 15, oriented to person, place, time, and situation. Cranial nerves II-XII grossly intact. Motor strength 5/5 in all extremities. Sensory grossly intact. Psych: Awake, alert, with orientation to person, place and time. Behavior, mood, and affect are within normal limits Vital Signs: 05:32 BP 132 / 71; Pulse 113; Resp 17; Temp 102.6(O); Pulse Ox 99% on R/A; Weight 131.54 kg ll3 (R); Height 5 ft. 7 in. (R); Pain 5/10; 06:58 BP 104 / 64; Pulse 96; Resp 16; Pulse Ox 99% on R/A; ll3 07:59 BP 109 / 52; Pulse 92; Resp 18; Temp 98.9; Pulse Ox 99% ; ko1 05:32 Body Mass Index 45.42 (131.54 kg, 170.18 cm) ll3 05:32 Pain Scale: Adult ll3 MDM: 05:46 Patient medically screened. sp4 05:49 Differential diagnosis: viral Infection, bacterial infection, URI, bronchitis, sp4 pneumonia UTI, gastroenteritis. Data reviewed: vital signs, nurses notes, old medical records, lab test result(s), CBC, electrolytes, Flu: hepatic panel, urinalysis, radiologic studies, CT scan, ultrasound. 06:42 Consideration of Admission/Observation Escalation of care including sp4 admission/observation considered. ED course: Patient presents with couple days of fever feeling unwell, right upper quadrant abdominal pain nausea some headaches generally having low energy status. Patient tested positive for COVID-19. She will require symptomatic medications for COVID-19. There is also sign of cholelithiasis with some biliary sludge. Patient may warrant follow-up with general surgery for evaluation for cholecystectomy. CT report is still pending.. ED course: Patient is going to require to be passed to the next physician on line at 7 AM while she is waiting on the CAT scan report. 07:05 Transition of care: After a detail discussion of the patient's case, care is sp4 transferred to Joel Gomez MD. 07:50 ED course: Assumed care at shift change. Discussed diagnostic findings as well as rt return precautions with the patient. Very well-appearing, improvement treatment in the ED, stable for outpatient care.. 02/19 05:26 Order name: SARS RAPID; Complete Time: 06:37 sp4 02/19 05:26 Order name: Influenza Screen (a \T\ B); Complete Time: 06:37 sp4 02/19 05:26 Order name: Test, Urine; Complete Time: 06:37 sp4 02/19 05:26 Order name: Urinalysis W/Microscopic; Complete Time: 06:37 sp4 02/19 05:47 Order name: CBC with Diff; Complete Time: 07:27 sp4 02/19 05:47 Order name: CMP; Complete Time: 06:37 sp4 02/19 05:47 Order name: Lipase; Complete Time: 06:37 sp4 02/19 06:21 Order name: CBC Smear Scan; Complete Time: 07:27 EDMS 02/19 05:47 Order name: Abdomen Limited US; Complete Time: 07:43 sp4 02/19 05:47 Order name: CT Abd/Pelvis - IV Contrast Only; Complete Time: 07:18 sp4 02/19 05:47 Order name: IV Saline Lock; Complete Time: 06:07 sp4 02/19 05:47 Order name: Labs collected and sent; Complete Time: 06: sp4 Administered Medications: 06:07 Drug: NS 0.9% IV 1000 ml Route: IV; Rate: 1 bolus; Site: right antecubital; ll3 06:07 Drug: Famotidine IVP 20 mg Route: IVP; Site: right antecubital; ll3 06:07 Drug: metoCLOPramide IVP 10 mg Route: IVP; Site: right antecubital; ll3 06:08 Drug: TORadol - Ketorolac IVP 30 mg Route: IVP; Site: right antecubital; ll3 06:08 Drug: Ondansetron IVP 4 mg Route: IVP; Site: right antecubital; ll3 06:58 Drug: Acetaminophen PO 1000 mg Route: PO; ll3 Disposition Summary: 02/19/23 07:49 Discharge Ordered Location: Home rt Problem: new rt Symptoms: have improved rt Condition: Stable rt Diagnosis - Other cholelithiasis without obstruction rt - COVID rt Followup: rt - With: Yevgeniy Moraes MD - When: 10 - 14 days - Reason: Discharge Instructions: - Cholelithiasis rt - Discharge Summary Sheet sp4 - COVID-19 sp4 Forms: - Medication Reconciliation Form rt - Thank You Letter rt - Antibiotic Education rt - Prescription Opioid Use rt - Patient Portal Instructions rt Prescriptions: - ondansetron 4 mg Oral Tablet,disintegrating - take 1 tablet by ORAL route every 6 hours for 3 days PRN nausea; 30 tablet; sp4 Refills: 0, Product Selection Permitted Signatures: Dispatcher [employer] Stacey Mckoy RN RN ll3 Joel Gomez MD MD rt Thai Leal MD MD sp4
--- NOTE | 2023-02-19 07:50 | ER ---
Nurse's Notes [facility] Name: Reyna Resendiz Age: 32 yrs Sex: Female : 1990 Arrival Date: 02/19/2023 Time: 05:20 Bed 15 Private MD: Diagnosis: Other cholelithiasis without obstruction;COVID Presentation: 02/19 05:32 Chief complaint: Patient states: C/o fevers at home X 2 days, H/A, and RUQ pain X 3-4 ll3 days, states tested positive for flu 2 days ago. Coronavirus screen: Vaccine status: Patient reports receiving the 2nd dose of the covid vaccine. fever, headache, muscle pain. Ebola Screen: No symptoms or risks identified at this time. Initial Sepsis Screen: Does the patient meet any 2 criteria? Temp <36.0*C (96.8*F)) or > 38.3*C (100.9*F). HR > 90 bpm. Yes Does the patient have a suspected source of infection? No. Patient's initial sepsis screen is negative. Risk Assessment: Do you want to hurt yourself or someone else? Patient reports no desire to harm self or others. Onset of symptoms was February 16, 2023. Care prior to arrival: Medication(s) given: Tylenol, at 0000. 05:32 Method Of Arrival: Ambulatory ll3 05:32 Acuity: ALONDRA 3 ll3 Triage Assessment: 05:36 General: Appears uncomfortable, Behavior is calm, cooperative, Reports fever for 2-3 ll3 days. Pain: Complains of pain in right upper quadrant Pain radiates to right mid back Pain currently is 5 out of 10 on a pain scale. Neuro: Reports headache. GI: Abdomen is round non-distended, Reports upper abdominal pain. Derm: Skin is pink, warm \T\ dry. 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 - Social history:: Smoking status: Patient denies any tobacco usage or history of. - Family history:: not pertinent. Screenin:38 [facility] ED Fall Risk Assessment (Adult) History of falling in the last 3 months, ll3 including since admission No falls in past 3 months (0 pts) Confusion or Disorientation No (0 pts) Intoxicated or Sedated No (0 pts) Impaired Gait No (0 pts) Mobility Assist Device Used No (0 pt) Altered Elimination No (0 pt) Score/Fall Risk Level 0 - 2 = Low Risk Oriented to surroundings, Maintained a safe environment, Educated pt \T\ family on fall prevention, incl call for assistance when getting out of bed. Abuse screen: Denies threats or abuse. Denies injuries from another. Nutritional screening: No deficits noted. Tuberculosis screening: No symptoms or risk factors identified. Assessment: 05:36 General: See triage assessment. ll3 07:06 Reassessment: No changes from previously documented assessment. Patient and/or family ko1 updated on plan of care and expected duration. Pain level reassessed. Patient is alert, oriented x 3, equal unlabored respirations, skin warm/dry/pink. Vital Signs: 05:32 BP 132 / 71; Pulse 113; Resp 17; Temp 102.6(O); Pulse Ox 99% on R/A; Weight 131.54 kg ll3 (R); Height 5 ft. 7 in. (R); Pain 5/10; 06:58 BP 104 / 64; Pulse 96; Resp 16; Pulse Ox 99% on R/A; ll3 07:59 BP 109 / 52; Pulse 92; Resp 18; Temp 98.9; Pulse Ox 99% ; ko1 05:32 Body Mass Index 45.42 (131.54 kg, 170.18 cm) ll3 05:32 Pain Scale: Adult ll3 ED Course: 05:23 Patient arrived in ED. [id number] 05:25 Thai Leal MD is Attending Physician. sp4 05:36 Triage completed. ll3 05:36 Arm band placed on Patient placed in an exam room, on a stretcher, on pulse oximetry. ll3 05:38 Patient has correct armband on for positive identification. Bed in low position. Call ll3 light in reach. Side rails up X 1. 06:08 SARS RAPID Sent. ll3 06:08 Influenza Screen (a \T\ B) Sent. ll3 06:08 Test, Urine Sent. ll3 06:08 Urinalysis W/Microscopic Sent. ll3 06:08 Initial lab(s) drawn, by ED staff, sent to lab. Inserted saline lock: 20 gauge in right ll3 antecubital area, using aseptic technique. Blood collected. 06:59 CT Abd/Pelvis - IV Contrast Only In Process Unspecified. EDMS 07:05 Attending Physician role handed off by Tahi Leal MD rt 07:05 Joel Gomez MD is Attending Physician. rt 07:05 Kyra Oconnor, RN is Primary Nurse. ko1 07:09 Abdomen Limited US In Process Unspecified. EDMS 07:49 Yevgeniy Moraes MD is Referral Physician. rt 07:59 Provided Education on: discharge. ko1 07:59 No provider procedures requiring assistance completed. IV discontinued, intact, ko1 bleeding controlled, No redness/swelling at site. Pressure dressing applied. Administered Medications: 06:07 Drug: NS 0.9% IV 1000 ml Route: IV; Rate: 1 bolus; Site: right antecubital; ll3 06:07 Drug: Famotidine IVP 20 mg Route: IVP; Site: right antecubital; ll3 06:07 Drug: metoCLOPramide IVP 10 mg Route: IVP; Site: right antecubital; ll3 06:08 Drug: TORadol - Ketorolac IVP 30 mg Route: IVP; Site: right antecubital; ll3 06:08 Drug: Ondansetron IVP 4 mg Route: IVP; Site: right antecubital; ll3 06:58 Drug: Acetaminophen PO 1000 mg Route: PO; ll3 Medication: 07:59 VIS not applicable for this client. ko1 Outcome: 07:49 Discharge ordered by MD. rt 07:59 Discharged to home ambulatory. ko1 07:59 Condition: good 07:59 Discharge instructions given to patient, Instructed on discharge instructions, follow up and referral plans. medication usage, Demonstrated understanding of instructions, follow-up care, medications, Prescriptions given X 1. 08:01 Patient left the ED. ko1 Signatures: Dispatcher [employer] [facility] Dorinda Ziegler [id number] Stacey Garza RN RN ll3 Krya Oconnor, RN RN ko1 Joel Gomez MD MD rt Thai Leal MD MD sp4
[2023-02-19 08:24] VITALS: O2SAT 99
[2023-02-19 08:27] VITALS: BP 109/52; TEMP 98.9
== END 2023-02-19 08:01 | disposition home or self-care (01) ==
LOC: ER 05:20
DX: U07.1 COVID-19 (principal); K80.80 Other cholelithiasis without obstruction; Z88.0 Allergy status to penicillin
CPT/HCPCS: 85025; 81001; 36415; 81025; 83690; 80053; 87804 ×2; 74177; 76705; 96375; 96374; 99284; 87811; Q9967; J2765; J2405; J7030

== ENCOUNTER 2023-02-23 11:24 | Inpatient (IN) | payer BC ==
[2023-02-23] MEDS ORDERED: CEFOXITIN SODIUM 1 GM/VIAL ONE (12:00)
[2023-02-23] MEDS ORDERED: Ringers Lactate 1,000 ML IV ONE (12:00)
[2023-02-23 12:05] LABS: Absolute Lymphocytes (CBC) 1.6 K/uL (0.7-4.9); Hematocrit 35.4 % (36.0-45.0); MCV 69.9 fL (80-100); MPV 8.7 fL (7.6-11.3); Platelets 253 thou/uL (152-406); RBC Red Blood Cell Count 5.07 M/uL (3.86-4.86)
[2023-02-23 12:21] LABS: Albumin 3.5 g/dL (3.4-5.0); Bilirubin Direct 0.4 mg/dL (0-0.2); Bilirubin Indirect, Calculated 0.8 mg/dL (0.2-0.8); Bilirubin Total 1.2 mg/dL (0.2-1.0); Potassium 3.3 mEq/L (3.5-5.1)
[2023-02-23] MEDS ORDERED: CIPROFLOXACIN 400mg IV 400 MG/200 ML BAG IV ONE (12:24)
[2023-02-23] MEDS ORDERED: ROCURONIUM 50 MG/5 ML VIAL IV ONE (12:39)
[2023-02-23] MEDS ORDERED: FENTANYL CITR 100 MCG/2 ML ONE (12:39)
[2023-02-23] MEDS ORDERED: MIDAZOLAM HCL 2 MG/2 ML INJ ONE (12:40)
[2023-02-23] MEDS ORDERED: KETOROLAC 30 MG/ML INJ ONE (12:40)
[2023-02-23] MEDS ORDERED: dexAMETHasone 10 MG/ML VIAL ONE (12:40)
[2023-02-23] MEDS ORDERED: ONDANSETRON 4 MG/2 ML VIAL ONE (12:41)
[2023-02-23] MEDS ORDERED: LIDOCAINE 1% MPF 30 ML VIAL ONE (12:42)
[2023-02-23] MEDS ORDERED: propofoL 200 MG/20 ML VIAL IV ONE (12:42)
[2023-02-23 12:54] LABS: Anisocytosis 1+; Blood Morphology Comment NOTED (NOT SEEN); Hypochromasia 1+; Platelet Estimate ADEQ; White Blood Cell Scan OK (OK)
[2023-02-23] MEDS ORDERED: GLYCOPYRROLATE 0.2 MG/ML SYR ONE ×2 (14:48)
[2023-02-23] MEDS ORDERED: NEOSTIGMINE 1 MG/ML -10 ML VIAL ONE (14:49)
[2023-02-23] MEDS ORDERED: SODIUM CHLORIDE 0.9% 10ML INJ IV PRN (14:58)
[2023-02-23] MEDS ORDERED: PROMETHAZINE 25 MG TABLET PO PRN (14:58)
--- NOTE | 2023-02-23 14:58 | P.BOP ---
Preoperative diagnosis: acute cholecystitis, symptomatic cholelithiasis, increased liver enzymes Postoperative diagnosis: same Primary procedure: Laparoscopic cholecystectomy Secondary procedure: Laparoscopic intraoperative cholangiogram Health Information Administrator: Stefanie Lozano (Elizabeth) Estimated blood loss: <20 Specimen: gb Findings: patent CBD with no discrete filling defect, GB wall edema with dist ention Anesthesia: General Complications: None Drain(s): KEVON drain Transferred to: Recovery Room Condition: Good
--- NOTE | 2023-02-23 15:54 | RAD REPORT ---
EXAM DESCRIPTION: RADCholangiogram Oper-Xray Or02/23/2023 3:18 pm CLINICAL HISTORY: Abdominal pain FINDINGS: The examination was performed by Dr. Russell. The cystic duct was cannulated and contras t administered. Contrast flowed into the duodenum. The biliary tree is normal caliber . Nine fluoroscopic spot images obtained. The fluoroscopy time 0.7 minutes
[2023-02-23] MEDS ORDERED: MORPHINE 4 MG/ML SYR ONE (16:01)
--- OUTSIDE RECORDS SUMMARY | 2023-02-23 16:05 | XMS REPORT | Continuity of Care Document ---
:1990 Author Organization [facility] t Address [address] [place] [id number] Care Team Providers Name Role Phone Anson Yan Attending Clinician Unavailable BREANNE_LINDA_Yuriy_Sandra Attending Clinician Unavailable BREANNE_Serenity Attending Clinician Unavailable Anson Yan Attending Clinician [phone] Velasquez Goldberg Attending Clinician Unavailable Velasquez Goldberg Attending Clinician [phone] Eliot Scherer Attending Clinician Anson Yan Admitting Clinician Unavailable Tana Admitting Clinician Unavailable Saad Admitting Clinician Unavailable Payers Payer Name Policy Type Policy Number Effective Date Expiration Date Viviane woodall [place] [id number] 2020 00:00:00 [place] [id number] BCBS (PPO) Problems This patient has no known problems. Allergies, Adverse Reactions, Alerts Allergy Allergy Status Severity Reaction(s) Onset Inactive Treating Comm ents Source Name Type Date Date Clinician penicill DA Active [place] [facility] [place] Penic[facility] Allergy Active Rash [facility] penicill penicill Active [facility] [place] Social History Smoking Status Start Date Stop Date Source Social History [facility] Medications Ordered Filled Start Stop Current Ordering Indication Dosage Frequency Signature Comments Components Source Medication Medication Date Date Medication? Clinician (SIG) Name Name Bactrim DS Yes 1 tab, PO, M emoria 800 mg- 160 5-21 BID, X 10 l mg oral 14:55: day, # 20 Pat nn tablet 00 tab, 0 Refill(s), Pharmacy: [facility] #[id number], 167.64, cm, 12/10/21 9:32:00 CDT, Height, 117.273, kg, 12/10/21 9:32:00 CDT, Weight Bactrim DS Yes 1 tab, PO, M emoria 800 mg- 160 5-21 BID, X 10 l mg oral 14:55: day, # 20 Pat nn tablet 00 tab, 0 Refill(s), Pharmacy: [facility] #[id number], 167.64, cm, 12/10/21 9:32:00 CDT, Height, 117.273, kg, 12/10/21 9:32:00 CDT, Weight Bactrim DS Yes 1 tab, PO, M emoria 800 mg- 160 5-21 BID, X 10 l mg oral 14:55: day, # 20 Pat nn tablet 00 tab, 0 Refill(s), Pharmacy: [facility] #[id number], 167.64, cm, 12/10/21 9:32:00 CDT, Height, [...] Ordered Immunization Filled Immunization Date Status Commen Source Name Name COVID-19, mRNA, COVID-19, mRNA, 2020-12-29 Completed [facility] LNP-S, PF, 30 LNP-S, PF, 30 00:00:00 mcg/0.3 mL dose mcg/0.3 mL dose (eIQnetworks) - (eIQnetworks) - ML ML COVID-19, mRNA, COVID-19, mRNA, 2020-12-29 Completed [facility] LNP-S, PF, 30 LNP-S, PF, 30 00:00:00 mcg/0.3 mL dose mcg/0.3 mL dose (eIQnetworks) - (Pfizer-BioNTech) - ML ML COVID-19, mRNA, [...] Source BP Diastolic 2022-11-15 00:00:00 77 mm[Hg] [facility] BP Systolic 2022-11-15 00:00:00 113 [...] edical Body Weight 2022-10-18 00:00:00 298 [lb_av] [facility] BP Diastolic 2022-09-21 00:00:00 78 mm[Hg] [facility] Height 2022-09-21 00:00:00 67 [in_i] [facility] BP Systolic 2022-09-21 00:00:00 132 mm[Hg] [facility] Body Weight 2022-09-21 00:00:00 298 [lb_av] [facility] BP Diastolic 2022-08-23 00:00:00 72 mm[Hg] [facility] BP Systolic 2022-08-23 00:00:00 118 mm[Hg] [facility] Body Weight 2022-08-23 00:00:00 289 [lb_av] [facility] BP Diastolic 2022-07-26 00:00:00 84 mm[Hg] [facility] BP Systolic 2022-07-26 00:00:00 131 mm[Hg] [facility] Body Weight 2022-07-26 00:00:00 281 [lb_av] [facility] BP Diastolic 2022-06-28 00:00:00 83 mm[Hg] [facility] BP Systolic 2022-06-28 00:00:00 136 [...] Medical BP Systolic 2022-05-16 00:00:00 124 mm[Hg] [facility] Body Weight 2022-05-16 00:00:00 277 [lb_av] [facility] BP Diastolic 2022-05-11 00:00:00 74 mm[Hg] [facility] Height 2022-05-11 00:00:00 67 [in_i] [facility] BMI (Body Mass Index) 2022-05-11 00:00:00 42.8 kg/m2 [facility] BP Systolic 2022-05-11 00:00:00 122 mm[Hg] [facility] Body Weight 2022-05-11 00:00:00 273 [lb_av] [facility] BP Diastolic 2022-05-03 00:00:00 85 mm[Hg] [facility] Height 2022-05-03 00:00:00 67 [in_i] [facility] BP Systolic 2022-05-03 00:00:00 135 mm[Hg] [facility] Body Weight 2022-05-03 00:00:00 278 [...] Medical BP Systolic 2022-01-27 00:00:00 138 mm[Hg] [facility] Body Weight 2022-01-27 00:00:00 265 [lb_av] [facility] BP Diastolic 2021-12-26 00:00:00 80 mm[Hg] [facility] Height 2021-12-26 00:00:00 67 [in_i] [facility] BP Systolic 2021-12-26 00:00:00 124 mm[Hg] [facility] BP Diastolic 2021-11-16 00:00:00 84 mm[Hg] [facility] Height 2021-11-16 00:00:00 67 [in_i] [facility] BMI (Body Mass Index) 2021-11-16 00:00:00 41 kg/m2 [facility] BP Systolic 2021-11-16 00:00:00 148 mm[Hg] [facility] Body Weight 2021-11-16 00:00:00 262 [lb_av] [facility] Heart Rate 2021-12-10 14:32:00 [facility] Respitory Rate 2021-12-10 14:32:00 Eugene ramirez [place] Systolic (mm Hg) 2021-12-10 14:32:00 Miguel Sneed Diastolic (mm Hg) 2021-12-10 14:32:00 Mem orial [place] Height 2021-12-10 14:32:00 167.64 cm [facility] Weight 2021-12-10 14:32:00 [facility] BMI Calculated 2021-12-10 14:32:00 Eugene Mcclelland Procedures Procedure Date / Time Performing Clinician Source Performed [id number] 2022-12-31 00:00:00 [facility] [id number] 2022-12-31 00:00:00 [facility] [id number] 2022-12-31 00:00:00 [facility] [id number] 2022-12-31 00:00:00 [facility] ULTRASOUND RE TO 2022-08-23 00:00:00 [facility] [place] EVALUATION OF UTERUS PER FETUS US, obstetric, 2022-07-26 00:00:00 [facility] maternal evaluation + anatomy ABDOMINAL ULTRASOUND [...] order 2021-11-16 00:00:00 [facility] Append[facility] Other [facility] Tonsillectomy [facility] Medical Plan of Care Planned Activity Planned Date Details Comments Source Diagnostic Test Pending 2022-09-21 HIV 1+2 AB + HIV [address] [facility] Medical 00:00:00 p24 Ag, qualitative immunoassay, serum [code = HIV 1+2 AB + HIV 1 p24 Ag, qualitative immunoassay, serum] Diagnostic Test Pending 2022-09-[address] [facility] Medical 00:00:00 test, gestational, post-50G [code = glucose tolerance test, gestational, post-50G] Diagnostic Test Pending 2022-09-21 Grapefruit IgE Ab [facility] Medical 00:00:00 [Units/volume] in Serum [code = 6131-7] Instructions [facility] Medical Encounters Start End Encounter Admission Attending Care Care Encounter Source Date/Time Date/Time Type Type Clinicians Facility Department ID 2022-12-30 2023-01-02 Inpatient CHANO Ann OB [id number] [facility] 01:53:00 12:40:00 [facility] 2022-12-30 2023-01-02 Inpatient NUPUR Yuriy CHANO OB [id number] [facility] 01:53:00 12:40:00 [facility] 2022-12-19 2022-12-19 Outpatient GC_[facility]_ PRIV PRIV [id number] [facility] 00:00:00 00:00:00 Abel [id number] Medic al 2022-12-19 2022-12-19 Outpatient GC_[facility]_ PRIV PRIV 505 [id number] [facility] 00:00:00 00:00:00 Abel [id number] Medic al 2022-12-19 2022-12-19 Outpatient GC_[facility]_ PRIV PRIV 505 [id number] [facility] 00:00:00 00:00:00 Abel [id number] Medic al 2022-12-19 2022-12-19 Outpatient GC_[facility]_ PRIV PRIV 505 [id number] [facility] 00:00:00 00:00:00 Abel [id number] Medic al 2022-12-18 2022-12-18 Outpatient GC_[facility]_ PRIV PRIV 505 [id number] [facility] 00:00:00 00:00:00 Abel [id number] Medic al 2022-12-14 2022-12-14 Outpatient GC_SWHATBIC PRIV PRIV 505 [id number] [facility] 00:00:00 00:00:00 _Abel [id number] [facility] 2022-12-13 2022-12-13 Outpatient GC_[facility]_ PRIV PRIV 505 [id number] [facility] 00:00:00 00:00:00 Abel [id number] Medic al 2022-11-23 2022-11-23 Outpatient GC_[facility]_ PRIV PRIV 505 [id number] [facility] 00:00:00 00:00:00 Abel [id number] Medic al 2022-11-23 2022-11-23 Outpatient GC_[facility]_ PRIV PRIV 505 [id number] [facility] 00:00:00 00:00:00 Abel [id number] Medic al 2022-11-23 2022-11-23 Outpatient GC_[facility]_ PRIV PRIV 505 [id number] [facility] 00:00:00 00:00:00 Abel [id number] Medic al 2022-11-23 2022-11-23 Outpatient GC_[facility]_ PRIV PRIV 505 [id number] [facility] 00:00:00 00:00:00 Abel [id number] Medic al 2022-11-23 2022-11-23 Outpatient GC_SWHAT[facility] PRIV PRIV 505 [id number] [facility] 00:00:00 00:00:00 _Abel [id number] [facility] [place] 2022-11-23 2022-11-23 Outpatient GC_[facility]_ PRIV PRIV 505 [id number] [facility] 00:00:00 00:00:00 Abel [id number] Medic al 2022-11-15 2022-11-15 [facility] 00:00:00 00:00:00 [facility] Medic al MEAGAN Yan MD: [address], [place] [address] , Ph. 2022-11-01 2022-11-01 Outpatient GC_[facility]_ PRIV PRIV 505 [id number] [facility] 00:00:00 00:00:00 Abel [id number] Medic al 2022-11-01 2022-11-01 Outpatient GC_[facility]_ PRIV PRIV 505 [id number] [facility] 00:00:00 00:00:00 Abel [id number] Medic al 2022-11-01 2022-11-01 Outpatient GC_[facility]_ PRIV PRIV 505 [id number] [facility] 00:00:00 00:00:00 Abel [id number] Medic al 2022-11-01 2022-11-01 [facility] [facility] 00:00:00 00:00:00 [facility] MEAGAN Regalado MD: [address], [place] [address] , Ph. 2022-10-19 2022-10-19 Outpatient GC_[facility]AOM[facility]_ PRIV PRIV 505 [id number] [facility] 00:00:00 00:00:00 Abel [id number] Medic al 2022-10-19 2022-10-19 Outpatient GC_[facility]_ PRIV PRIV 505 [id number] [facility] 00:00:00 00:00:00 Abel [id number] Medic al 2022-10-19 2022-10-19 Outpatient GC_[facility]_ PRIV PRIV 505 [id number] [facility] 00:00:00 00:00:00 Abel [id number] Medic al 2022-10-18 2022-10-18 Outpatient GC_[facility]_ PRIV PRIV 505 [id number] [facility] 00:00:00 00:00:00 Abel [id number] Medic al 2022-10-18 2022-10-18 [place] [facility] 00:00:00 00:00:00 [facility] al MEAGAN Yan MD: [address], [place] [address] , Ph. 2022-10-12 2022-10-12 Outpatient GC_[facility]_ PRIV PRIV 505 [id number] [facility] 00:00:00 00:00:00 Abel [id number] Medic al 2022-10-12 2022-10-12 Outpatient GC_[facility]_ PRIV PRIV 505 [id number] [facility] 00:00:00 00:00:00 Abel [id number] Medic al 2022-09-21 2022-09-21 Outpatient GC_[facility]_ PRIV PRIV 505 [id number] [facility] 00:00:00 00:00:00 Abel [id number] Medic al 2022-09-21 2022-09-21 [place] [facility] 02 [facility] 00:00:00 00:00:00 [facility] al MEAGAN Yan MD: [address] [facility], [address], [place] [address] , Ph. 2022-09-20 2022-09-20 Outpatient GC_[facility]_ PRIV PRIV 505 [id number] [facility] 00:00:00 00:00:00 Abel [id number] Medic al 2022-09-16 2022-09-16 Outpatient GC_[facility]_ PRIV PRIV 505 [id number] [facility] 00:00:00 00:00:00 Abel [id number] Medic al 2022-08-23 2022-08-23 Outpatient GC_[facility]_ PRIV PRIV 505 [id number] [facility] 00:00:00 00:00:00 Abel [id number] Medic al 2022-08-23 2022-08-23 [place] [facility] [id number] [facility] 00:00:00 00:00:00 [facility] - Medic al MEAGAN Yan MD: [address] [facility], [address], [place] [address] , Ph. 2022-08-21 2022-08-21 Outpatient GC_[facility]WHATBIC PRIV PRIV 505 [id number] [facility] 00:00:00 00:00:00 _Abel [id number] Medi [place] 2022-08-21 2022-08-21 Outpatient GC_[facility]_ PRIV PRIV 505 [id number] [facility] 00:00:00 00:00:00 Abel [id number] Medic al 2022-08-18 2022-08-18 Outpatient GC_[facility]_ PRIV PRIV 505 [id number] [facility] 00:00:00 00:00:00 Abel [id number] Medic al 2022-08-16 2022-08-16 Outpatient GC_[facility]_ PRIV PRIV 505 [id number] [facility] 00:00:00 00:00:00 Abel [id number] Medic al 2022-08-14 2022-08-14 Outpatient GC_[facility] PRIV PRIV 505 [id number] [facility] 00:00:00 00:00:00 _Abel [id number] [facility] [place] 2022-07-26 2022-07-26 [facility] [facility] 04 [facility] 00:00:00 00:00:00 [facility] - Medic MEAGAN Regalado MD: [address], [place] [address] , Ph. 2022-06-28 2022-06-28 Outpatient GC_[facility]_ PRIV PRIV 505 [id number] [facility] 00:00:00 00:00:00 Abel [id number] Medic al 2022-06-28 2022-06-28 Outpatient GC_[facility]_ PRIV PRIV 505 [id number] [facility] 00:00:00 00:00:00 Abel [id number] Medic al 2022-06-28 2022-06-28 Outpatient GC_[facility]_ PRIV PRIV 505 [id number] [facility] 00:00:00 00:00:00 Abel [id number] Medic al 2022-06-28 2022-06-28 Outpatient GC_[facility]_ PRIV PRIV 505 [id number] [facility] 00:00:00 00:00:00 Abel [id number] Medic al 2022-06-28 2022-06-28 Outpatient GC_[facility]_ PRIV PRIV 505 [id number] [facility] 00:00:00 00:00:00 Abel [id number] Medic al 2022-06-28 2022-06-28 [place] [facility] [id number] [facility] 00:00:00 00:00:00 [facility] - Medic al MEAGAN Yan MD: [address], [place] [address] , Ph. 2022-06-27 2022-06-27 Outpatient GC_[facility]_ PRIV PRIV 505 [id number] [facility] 00:00:00 00:00:00 Abel [id number] Medic al 2022-06-22 2022-06-22 Outpatient GC_[facility]_ PRIV PRIV 505 [id number] [facility] 00:00:00 00:00:00 Abel [id number] Medic al 2022-06-01 2022-06-01 [place] [facility] [id number] [facility] 00:00:00 00:00:00 [facility] - Medic al MEAGAN Yan MD: [address] [facility], [address] [address] , Ph. 2022-05-25 2022-05-25 Outpatient GC_[facility]_ PRIV PRIV 505 [id number] [facility] 00:00:00 00:00:00 Abel [id number] Medic al 2022-05-17 2022-05-17 Outpatient GC_[facility]_ PRIV PRIV 505 [id number] [facility] 00:00:00 00:00:00 Abel [id number] Medic al 2022-05-16 2022-05-16 [place] [facility] 00:00:00 00:00:00 [facility] - Medic al MEAGAN Yan MD: [address], [address], [place] [address] , Ph. 2022-05-12 2022-05-12 Outpatient GC_[facility]_ PRIV PRIV 505 [id number] [facility] 00:00:00 00:00:00 Abel [id number] Medic al 2022-05-11 2022-05-11 Outpatient GC_[facility]_ PRIV PRIV 505 [id number] [facility] 00:00:00 00:00:00 Abel [id number] Medic al 2022-05-11 2022-05-11 [place] [facility] 20 [facility] 00:00:00 00:00:00 [facility] - Medic al MEAGAN Yan MD: [address] [facility], [address] [address] , Ph. 2022-05-09 2022-05-09 Outpatient GC_[facility]_ PRIV PRIV 505 [id number] [facility] 00:00:00 00:00:00 Abel [id number] Medic al 2022-05-04 2022-05-04 Outpatient GC_[facility]_ PRIV PRIV 505 [id number] [facility] 00:00:00 00:00:00 Abel [id number] Medic al 2022-05-03 2022-05-03 [place] [facility] 12 [facility] 00:00:00 00:00:00 [facility] Medic al MEAGAN Yan MD: [address], [place] [address] , Ph. 2022-04-25 2022-04-25 Outpatient GC_[facility]_ PRIV PRIV 505 [id number] [facility] 00:00:00 00:00:00 Abel [id number] Medic al 2022-04-21 2022-04-21 Outpatient GC_[facility]_ PRIV PRIV 505 [id number] [facility] 00:00:00 00:00:00 Abel [id number] Medic al 2022-03-24 2022-03-24 Outpatient GC_[facility]_ PRIV PRIV 505 [id number] [facility] 00:00:00 00:00:00 Abel [id number] Medic al 2022-03-01 2022-03-01 Outpatient GC_[facility]_ PRIV PRIV 505 [id number] [facility] 00:00:00 00:00:00 Abel [id number] Medic al 2022-03-01 2022-03-01 [place] [facility] 00:00:00 00:00:00 [facility] Medic ashley Yan GC_LINDA_ : [address], [place] [address] , Ph. 2022-03-01 2022-03-01 Outpatient Yuriy, PRIV PRIV [id number] 00:00:00 00:00:00 Anson [id number] Esteban [id number] 2022-02-23 2022-02-23 Outpatient GC_[facility]_ PRIV PRIV 505 [id number] [facility] 00:00:00 00:00:00 Abel [id number] Medic al 2022-02-17 2022-02-17 Outpatient Goldberg [facility] [id number] [facility] 12:22:00 12:22:[address] [place] [address]' s [facility] 2022-02-15 2022-02-15 Outpatient GC_[facility]AOM[facility]_ PRIV PRIV 505 [id number] [facility] 00:00:00 00:00:00 Abel [id number] Medic al 2022-02-10 2022-02-10 Outpatient GC_[facility]_ PRIV PRIV 505 [id number] [facility] 02:05:00 02:05:00 Abel [id number] Medic al 2022-02-10 2022-02-10 Velasquez [facility] 00:00:00 00:00:00 [facility] Medic ashley YusufBREANNE_LINDA_ : [address] [facility]* [address], [address], [place] [address] , Ph. 2022-02-10 2022-02-10 Outpatient Goldberg, PRIV PRIV [id number] 00:00:00 00:00:00 Velasquez [id number] Nigel [id number] 2022-02-09 2022-02-09 Outpatient GC_[facility]_ PRIV PRIV 505 [id number] [facility] 05:13:00 05:13:00 Abel [id number] Medic al 2022-02-06 2022-02-06 Outpatient GC_[facility]_ PRIV PRIV 505 [id number] [facility] 02:00:00 02:00:00 Abel [id number] Medic al 2022-01-28 2022-01-28 Outpatient GC_[facility]_ PRIV PRIV 505 [id number] [facility] 05:09:00 05:09:00 Abel [id number] Medic al 2022-01-27 2022-01-27 Outpatient GC_[facility]_ PRIV PRIV 505 [id number] [facility] 03:13:00 03:13:00 Abel [id number] Medic al 2022-01-27 2022-01-27 [place] [facility] 08 [facility] 00:00:00 00:00:00 Esteban [facility] al BREANNE Yan_LENINOMC_ MD: [address] [facility], [address], [place] [address] , Ph. 2022-01-27 2022-01-27 Outpatient Yuriy, PRIV PRIV [id number] 00:00:00 00:00:00 Anson [id number] Esteban [id number] 2022-01-03 2022-01-03 Outpatient GC_[facility]_ PRIV PRIV 505 [id number] [facility] 02:38:00 02:38:00 Abel [id number] Medic al 2021-12-26 2021-12-26 Outpatient GC_[facility]_ PRIV PRIV 505 [id number] [facility] 03:51:00 03:51:00 Abel [id number] Medic al 2021-12-26 2021-12-26 [place] [facility] [id number] [facility] 00:00:00 00:00:00 Esteban [facility] - Medic al BREANNE Yan_SWHAOMC_ MD: [address] [facility]* [address], [address], [place] [address] , Ph. 2021-12-26 2021-12-26 Outpatient Yuriy, PRIV PRIV [id number] 00:00:00 00:00:00 [place]son [id number] Marksandra [id number] 2021-12-25 2021-12-25 Outpatient GC_[facility]WHATBIC PRIV PRIV 505 [id number] [facility] 05:47:00 05:47:00 _Abel [id number] [facility] 2021-12-23 2021-12-23 Outpatient GC_SWHAOMC_ PRIV PRIV 505 [id number] [facility] 02:23:00 02:23:00 Abel [id number] Medic al 2021-12-15 2021-12-15 Outpatient GC_[facility]WHAT[facility] PRIV PRIV 505 [id number] [facility] 04:53:00 04:53:00 _Abel [id number] [facility] 2021-12-10 2021-12-11 Outpatient nullFlavo [facility] Urgent [id number] [facility] 14:10:00 04:59:59 r Care 00 l Charlee taylor 2021-12-10 2021-12-11 Outpatient nullFlavo MH Urgent [id number] [facility] 14:10:00 04:59:59 r Care 00 l Charlee taylor 2021-12-10 2021-12-10 Outpatient Gilmer MG [facility] [id number] 09:10:00 23:59:59 Eliot B 00 2021-12-10 2021-12-10 Outpatient MHIE MHIE [id number] [facility] 09:10:00 09:10:00 00 breanne Sneed 2021-11-17 2021-11-17 Outpatient GC_[facility] PRIV PRIV 505 [id number] [facility] 01:16:00 01:16:00 _Abel [id number] [facility] 2021-11-16 2021-11-16 Outpatient GC_[facility]_ PRIV PRIV 505 [id number] [facility] 01:36:00 01:36:00 Abel [id number] Medic al 2021-11-16 2021-11-16 Outpatient Yuriy PRIV PRIV [id number] 00:00:00 00:00:00 [place] [id number] Esteban [id number] 2021-11-16 2021-11-16 [place] [facility] 00:00:00 00:00:00 Esteban [facility] Yuriy GC_SWHAOMC_ MD: [address], [place] [address] , Ph. 2021-11-15 2021-11-15 Outpatient GC_[facility]_ PRIV PRIV 505 [id number] [facility] 12:06:00 12:06:00 Abel [id number] Medic al 2021-10-13 2021-10-13 Outpatient GC_[facility]_ PRIV PRIV 505 [id number] [facility] 10:19:00 10:19:00 Abel [id number] Medic al 2021-10-13 2021-10-13 Outpatient GC_[facility]_ PRIV PRIV [id number] [facility] 10:16:00 10:16:00 Abel [id number] Medic al 2021-10-12 2021-10-12 Outpatient GC_[facility]_ PRIV PRIV 505 [id number] [facility] 06:12:00 06:12:00 Abel [id number] Medic al 2021-10-12 2021-10-12 Outpatient PRIV PRIV [id number] [facility] 06:08:00 06:08:00 [id number] Medica l Results Test Description Test Time Test Comments Results Result Comments Source HGB HCT 2023-01-01 12:03:00 Test Item Value Reference Range Interpretation Comme nts HEMOGLOBIN (test code = HGB) 9.9 g/dL 10.1-13.8 L HEMATOCRIT (test code = HCT) 31.6 % 32.5-41.8 L AB [id number] 05:09:00 Test Item Value Reference Range Interpretation Comments AB TREPONEMA (test code = TREPAB) NONREACTIVE NONREACTIVE AB HIV 1 05:09:00 Test Item Value Reference Range Interpretation Comments AB HIV 1 2 (test NONREACTIVE NONREACTIVE Done by [facility] code = [id number]) 4th Gen HIV Ag/Ab Combo Screen AG HEPATITIS B [id number] 05:09:00 Test Item Value Reference Range Interpretation Comments AG HEPATITIS B SURFACE (test code NONREACTIVE NONREACTIVE = HBSAG) AB HEPATITIS C [id number] 05:09:00 Test Item Value Reference Range Interpretation Comments AB HEPATITIS C (test code = NONREACTIVE NONREACTIVE HCVAB) SIGNAL TO CUTOFF (test code = 0.11 <0.80 N CUTOFF) CBC W/AUTO [id number] 03:59:00 Test Item Value Reference Range Interpretation [...] Ag [Presence] in Serum or Plasma by [id number] 00:00:00 Test Item Value Reference Range Interpretation Comments HIV Ag/Ab (test code = HIV non-reactive non-reactive Ag/Ab) [facility] [Mass/volume] in Serum or Plasma --post 50 g glucose 2022-10-19 00:00:00 Test Item Value Reference Range Interpretation Comments glu.1HR(glucola)preg. (test code = 121 mg/dL <130 glu.1HR(glucola)preg.) [facility] MedicalHIV 1+2 Ab+HIV1 p24 Ag [Presence] in Serum or Plasma by [id number] 00:00:00 Test Item Value Reference Range Interpretation Comments HIV Ag/Ab (test code = HIV non-reactive non-reactive Ag/Ab) [facility] MedicalGlucose [Mass/volume] in Serum or Plasma --post 50 g glucose 2022-10-19 00:00:00 Test Item Value Reference Range Interpretation Comments glu.1HR(glucola)preg. (test code = 121 mg/dL <130 glu.1HR(glucola)preg.) [facility] MedicalCBC panel - Blood by Automated [id number] 00:00:00 Test Item Value Reference Range Interpretation [...] code = baso #) 0.1 10 0.0-0.2 [facility] panel - Blood by Automated [id number] 00:00:00 Test Item Value Reference Range Interpretation [...] code = baso #) 0.1 10 0.0-0.2 [facility]Mtnrmynpfnl [Mass/volume] in Serum or [id number] 00:00:00 Test Item Value Reference Range Interpretation [...] (test code = maternal serum AFP screen) [facility] and [id number] 00:00:00 Test Item Value Reference Range Interpretation [...] . [facility] [Mass/volume] in Serum or [id number] 00:00:00 Test Item Value Reference Range Interpretation Comments creatine, serum (1) (test code = 0.4 mg/dL <1.3 creatine, serum (1)) [facility]Urinalysis complete panel - [id number] 00:00:00 Test Item Value Reference Range Interpretation Comments urinalysis (UA) (test code = urinalysis tnp (UA)) [facility] MedicalBacteria identified in Urine by [id number] 00:00:00 Test Item Value Reference Range Interpretation Comments culture, urine (test code = see below no growth culture, urine) urinalysis (UA) (test code = tnp urinalysis (UA)) [facility]Free T4 and TSH panel - Serum or [id number] 00:00:00 Test Item Value Reference Range Interpretation Comments TSH (test code = TSH) 2.760 uIU/mL 0.178-4.530 free T4 (test code = free T4) 1.07 NG/dL 0.80-1.73 [facility] MedicalHIV 1+2 Ab+HIV1 p24 Ag [Presence] in Serum or Plasma by [id number] 00:00:00 Test Item Value Reference Range Interpretation Comments ethnicity: (test code = not provided ethnicity:) race: (test code = race:) unknown HIV Ag/Ab (test code = HIV non-reactive non-reactive Ag/Ab) [facility] 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 in Blood by Molecular genetics method [id number] 00:00:00 Test Item Value Reference Range Interpretation Comments report summary (test code see notes = report summary) report note (test code = see notes report note) trisomy 13 age-based risk 1,980 (0.03%) text (test code = trisomy 13 age-based risk text) trisomy 13 risk score text <1/10,000 (<0.01%) (test code = trisomy 13 risk score text) trisomy 13 result text low risk (test code = trisomy 13 result text) trisomy 18 age-based risk 11,263 (0.08%) text (test code = trisomy 18 [...] syndrome population-based risk text) 22Q11.2 deletion syndrome 07/25,100 risk score text (test code = 22Q11.2 [...] [facility] MedicalProgesterone Free [Mass/volume] in Serum or [id number] 00:00:00 Test Item Value Reference Range Interpretation Comments progesterone (test code = 17.80 NG/mL progesterone) [facility] MedicalChoriogonadotropin.beta subunit [Units/volume] in Serum or Plasma 2022-05-08 00:00:00 Test Item Value Reference Range Interpretation Comments HCG (test code = HCG) 4384 mIU/mL [facility] MedicalProgesterone Free [Mass/volume] in Serum or [id number] 00:00:00 Test Item Value Reference Range Interpretation Comments progesterone (test code = 17.80 NG/mL progesterone) [facility] MedicalChoriogonadotropin.beta subunit [Units/volume] in Serum or Plasma 2022-05-08 00:00:00 Test Item Value Reference Range Interpretation Comments HCG (test code = HCG) 4384 mIU/mL [facility] MedicalProgesterone Free [Mass/volume] in Serum or [id number] 00:00:00 Test Item Value Reference Range Interpretation Comments progesterone (test code = 17.80 NG/mL progesterone) [facility] MedicalChoriogonadotropin.beta subunit [Units/volume] in Serum or Plasma 2022-05-04 00:00:00 Test Item Value Reference Range Interpretation Comments HCG (test code = HCG) 1958 mIU/mL [facility] MedicalProgesterone Free [Mass/volume] in Serum or [id number] 00:00:00 Test Item Value Reference Range Interpretation Comments progesterone (test code = 16.80 NG/mL progesterone) [facility] MedicalChoriogonadotropin.beta subunit [Units/volume] in Serum or Plasma 2022-05-04 00:00:00 Test Item Value Reference Range Interpretation Comments HCG (test code = HCG) 1958 mIU/mL [facility] MedicalProgesterone Free [Mass/volume] in Serum or [id number] 00:00:00 Test Item Value Reference Range Interpretation Comments progesterone (test code = 16.80 NG/mL progesterone) [facility] MedicalChoriogonadotropin.beta subunit [Units/volume] in Serum or Plasma 2022-05-04 00:00:00 Test Item Value Reference Range Interpretation Comments HCG (test code = HCG) 1958 mIU/mL [facility] MedicalProgesterone Free [Mass/volume] in Serum or [id number] 00:00:00 Test Item Value Reference Range Interpretation Comments progesterone (test code = 16.80 NG/mL progesterone) [facility] [id number] 16:46:00 Test Item Value Reference Range Interpretation Comments SURGICAL (test code = SR) R UN DATE: 02/21/22 [facility] PAGE 1 RUN TIME: 1646 Specimen Inquiry RUN USER: INTERFACE P ATIENT: SHAE RESENDIZ [facility] U #: [id number] AGE/SX: 31/F ROOM: RE02/17/22REG DR: Velasquez Goldberg MD : 91 BED: DIS: STATUS: REG REF TLOC: SPEC #: [id number] RECD: 02/17/22 STATUS: BOLIVAR MORENO #: [id number] ROSALINA: 02/16/[address] [facility] [address]: Velasquez Goldberg MD ENTERED: 02/17/22 SP TYPE: SURGICAL OTHR DR: ORDERED: ANATOMIC SPEC, SPEC TRACK, [id number] PROCEDURES: [id number] (02/17/22) TISSUES: A. PRODUCTS OF CONCEPTION - SPONTANEOUS/MISSED FINAL DIAGNOSIS A. UTERUS, PRODUCTS OF CONCEPTION, SUCTION DILATATION AND CURETTAGE: - Placental tissue and gestational endometrium present GROSS DESCRIPTION Received in formalin, labeled with the patient's name and date of , designated as"products of conception," are multiple fragments of dan to red-brown soft tissue uhpwooth29 gm and measuring 9.0 x 8.0 x 0.7 cm in aggregate. Chorionic villi are grosslyidentified. No parts are grossly identified. Legislative Advocate sections are submittedin cassettes A1-A3. (hrr) Technical component performed at [facility] [address] [address] , [place] [address] Unless gross only, the diagnosis is based [...] 02/21/22 1646 END OF REPORT Surgical pathology [id number] 16:46:00BlUlises MedicalRh [Type] in Blood 2022-02-17 00:00:00 Test Item Value Reference Range Interpretation Comments ABO/Rh blood type (test code = ABO/Rh O pos blood type) [facility] Medical Notes Date/Time Note Provider Source 2023-01-19 09:46:00-00:00 [id number] [facility] [address] [address] PATIENT NAME: SHAE RESENDIZ ADMIT DATE: 3 ACCOUNT NO: [id number] ROOM NO: [facility] AGE: 32 SEX: F ADMITTING PHYSICIAN: Anson Yan MD ATTENDING PHYSICIAN: Anson Yan MD Provider Query QUERY TEXT: Condition Blood 360MD Query related questions should be directed to: Koki lee [facility] Coding Query Hotline Based on your clinical [...] PATIENT NAME: SHAE RESENDIZ 8338 2023-01-02 08:02:00-00:00 [facility] ([facility]) OB Disch REPORT#:[id number] REPORT STATUS: Signed DATE:01/02/23 TIME: 801 PATIENT: SHAE RESENDIZ UNIT #: [id number] ROOM/BED: [address] : [address] AGE: 32 SEX: F ATTEND: Mary Grace Yan MD ADM AUTHOR: Anson Yan MD * ALL edits or amendments must be made on the Hoverink/computer document * Subjective Subjective Admission EGA: Weeks: 39 Days: 1 EGA at delivery (wks/days): 39 weeks (2/7) Status/day: post (Day2) Patient reports: Patient reports: Yes: normal lochia, pain management effective, tolerating po well, voiding well, tolerating ambulation. No: complaints. Objective General VS: Vital Signs Date Temp Pulse Resp B/P B/P Mean Pulse Ox FiO 2 01/01-01/02 97.5-98.3 68-87 18 113-132/74-80 86 .7-97.6 Last Documented: Result Date Time B/P 132/80 01/02 742 B/P Mean 97.6 01/02 742 Temp 97.5 01/02 0742 Pulse 78 01/02 0742 Resp 18 01/02 07 PATIENT WEIGHT: Weight (lb): 308 Weight (oz): [...] noted Diet: Regular Activity: Light Duty, No [place] for 6 Wks Additional discharge routines: Attending [...] Anson Yan MD on at 0811 RPT #:[id number] END OF REPORT 2022-12-31 16:46:00-00:00 [facility] ([facility]) OB Delivery Note REPORT#:[id number] REPORT STATUS: Signed DATE:12/31/22 TIME: 1646 PATIENT: SHAE RESENDIZ UNIT #: [id number] ROOM/BED: [address] : 91 AGE: 32 SEX: F ATTEND: Mary Grace Yan MD ADM AUTHOR: Nancy Rubio MD * ALL edits or amendments must be made on the el Eight19[employer]/computer document * OB Delivery Nursing Documentation Review [...] score: LowRisk Delivery date A: Delivery time infant A: Birthweight (gm) infant A: Weight (lb) A: Weight (oz) A: Gender infant A: Male 1 minute infant A: 5 minutes infant A: 10 minutes infant A: Cord pH obtained infant A: Vacuum time A: Vacuum # pulls A: Vacuum # popoffs A: QBL at delivery: __ Provider comments on imported nursing data: [] B (add'l data): The data set between the solid lines has been im ported from nursing documentation. Any exceptions have been noted be low under Provider comments. ___ Delivery date B: Delivery time B: Birthweight (gm) B: Weight (lb) B: Weight (oz) B: Gender infant B: 1 minute B: 5 minutes infant B: 10 minutes B: Cord pH obtained B: Vacuum time B: Vacuum # pulls infant B: Vacuum # popoffs B: ____ Provider [...] MD on 12/21 08/14 at 1649 RPT #:[id number] END OF REPORT 2022-12-31 12:42:00-00:00 [facility] OB Intrapart Prog Note REPORT#:[id number] REPORT STATUS: Signed DATE:12/31/22 TIME: 1242 PATIENT: SHAE RESENDIZ UNIT #: [id number] ROOM/BED: [address] : 91 AGE: 32 SEX: F ATTEND: Mary Grace Yan MD ADM AUTHOR: Nancy Rubio MD * ALL edits or amendments must be made on the el [employer]/computer document * Subjective Subjective Patient reports: Patient [...] MD on 12/21 08/14 at 1244 RPT #:[id number] END OF REPORT 2022-12-31 08:00:00-00:00 [facility] ([facility]) Clinical Note REPORT#:[id number] REPORT STATUS: Signed DATE:12/31/22 TIME: 799 PATIENT: SHAE RESENDIZ UNIT #: [id number] ROOM/BED: [address] : 91 AGE: 32 SEX: F [...] Patricio Armstrong MD on at 0802 RPT #:[id number] END OF REPORT 2022-12-30 19:27:00-00:00 [facility] ([facility] Clinical Note REPORT#:[id number] REPORT STATUS: Signed DATE:12/30/22 TIME: 1926 PATIENT: SHAE RESENDIZ UNIT #: [id number] ROOM/BED: [address] : 91 AGE: 32 SEX: F ATTEND: Mary Grace Yan MD ADM AUTHOR: Patricio Armstrong MD * ALL edits or amendments must be made on the el ectronic/computer document * Clinical Note Note: Comfortable Cat 1 Plan discussed with pm staff Electronically Signed by Patricio Armstrong MD on at 1927 RPT #:[id number] END OF REPORT 2022-12-30 18:00:00-00:00 [facility] ([facility]) Clinical Note REPORT#:[id number] REPORT STATUS: Signed DATE:12/30/22 TIME: 1800 PATIENT: SHAE RESENDIZ UNIT #: [id number] [facility] AGE: 32 SEX: F ATTEND: Mary Grace Yan MD ADM AUTHOR: Patricio Armstrong MD * ALL edits or amendments must be made on the el ectronic/computer document * Clinical Note Note: Comfortable with epidural vss afeb 4/50/-3/vtx/intact Cat 1 at 39.1 admitted for IOL. Prior elevated BMI LGA Plan continue with pitocin induction. Electronically Signed by Patricio Armstrong MD on at 1801 RPT #:[id number] END OF REPORT 2022-12-30 08:12:00-00:00 [facility] ([facility]) Clinical Note REPORT#:[id number] REPORT STATUS: Signed DATE:12/30/22 TIME: 0812 PATIENT: SHAE RESENDIZ UNIT #: [id number] [facility] AGE: 32 SEX: F ATTEND: Mary Grace Yan MD ADM AUTHOR: Patricio Armstrong MD * ALL edits or amendments must be made on the el ectronic/computer document * Clinical Note Note: Chart reviewed Plan discussed with patient Electronically Signed by Patricio Armstrong MD on at 0814 RPT #:[id number] END OF REPORT 2022-12-30 06:51:00-00:00 [facility] ([facility]) OB Admission / H P REPORT#:[id number] REPORT STATUS: Signed DATE:12/30/22 TIME: 0651 PATIENT: SHAE RESENDIZ UNIT #: [id number] ROOM[facility]BED: [facility] : [facility] AGE: 32 SEX: F ATTEND: Mary Grace Yan MD ADM AUTHOR: Stephanie Resendiz MD * ALL edits or amendments must be made on the Hoverink/computer document * OB History Chief complaint: scheduled [...] B/P Mean 79.0 12/30 0300 B/P 108/65 / 0300 Temp 97.9 / 0300 Pulse 86 / 0300 Vital Signs Date Temp Pulse Resp B/P B/P Mean Pulse Ox FiO2 / 97.9 86 108/65 79.0 PATIENT WEIGHT: Weight [...] % (Auto) (14.5 - 29.7 %) 24.9 Frio % (Auto) (3.6 - 10.2 %) 6.4 Eos % (Auto) (0.0 - 3.0 %) 0.9 Baso % (Auto) (0.1 - 0.9 %) 0.5 Neut # (Auto) (K/mm3) 7.2 Lymph # (Auto) (K/mm3) 2.7 Frio # (Auto) (K/mm3) 0.7 Eos # (Auto) [...] by Stephanie Resendiz MD on at 0701 [facility]IT #:[id number] END OF REPORT
--- NOTE | 2023-02-23 16:24 | OP ---
Date of Procedure: 02/23/2023 Surgeon: Lukasz Russell MD Sewing Machine Adjuster: GILA Greenberg. Preoperative Diagnoses: Acute and intractable abdominal pain, acute cholecystitis, symptomatic theo lithiasis, increased liver enzymes, obesity. Postoperative Diagnoses: Acute and intractable abdominal pain, acute cholecystitis, symptomatic chol elithiasis, increased liver enzymes, obesity. Procedures: Laparoscopic cholecystectomy, laparoscopic intraoperative cholangiogram. Estimated Blood Loss: Less than 20 cc. Specimen: Gallbladder. Findings: The patient has an acutely inflamed gallbladder. When I did the aspiration, we noticed to have purulent fluid with distention. The gallbladder wall is very edematous. When we did the intra operative cholangiogram, we noticed fluid going proximal into hepatics and also distally into the duo denum with no obvious filling defects. No resistant. Complications: None. Anesthesia: General plus local. Drain: KEVON #10. Indications: This is the case of a 32-year-old patient, who comes to us with abdominal pain. She wa s in the ER, they sent her home and she could not just get better, came to my office few hours ago an d I advised importance of surgical intervention since she still has Bello sign. The benefits, alter natives, and risks of laparoscopic possible open cholecystectomy fully explained, which include, but not limited to infection, bleeding, damage to adjacent structures, anesthesia complication, choledoch olithiasis, bile leak, pancreatitis, PR, and even . She also understands this may not relieve a ny symptoms. She might need more than one surgical intervention. At the same time, this morning whe n we did omentum surgery an hour ago, we did the LFTs repeated, even though in the hospital before we re not abnormal and right now they are abnormal, so we explained to her intraoperative cholangiogram, the pros and cons, which are discussed above too. She signed a consent. She understands that the i ntraoperative cholangiogram revealed some findings, then may need more than one surgical intervention , may even trigger the endoscopy and she understood that, although she preferred that we find the sto ne to be wake up and then try the ERCP first. She understands the importance also of losing weight. Procedure In Detail: The patient was brought to the operating room, placed in supine position. Anes thesia was done without complication. Abdominal area was prepped and draped in the usual sterile fas hion. Marcaine 0.5% was injected for local anesthetic followed by sharp incision of the skin in the supraumbilical region. The incision was carried down to fascia, which was opened under direct vision . Peritoneum was encountered, opened under direct vision. Vicryl #1 placed inside the fascia. Mike on trocar was carefully introduced. Pneumoperitoneum was obtained. I placed 2 more trocars, 5 mm ea ch one of them in the epigastric and right upper quadrant area under direct visualization. Immediate ly, we noticed an inflamed and distended gallbladder. The some adhesions of omentum already attached to it and carefully were removed, and we can grasp the gallbladder because it was so distended, so w e have to place a needle in the gallbladder under direct visualization and aspirate the gallbladder c ontent and once again bile with some purulent discharge content. Needle was removed under direct vis ualization. A grasper was placed in the fundus of the gallbladder, another grasper in the infundibul um, retracting the gallbladder in the inferolateral fashion, exposing the triangle of Calot, obtainin g critical view. Due to the LFTs elevated, cholangiogram was initiated. We proceeded then to put a clip proximal and make a small opening on the cystic duct. I placed a catheter in that area and plac ed the balloon slightly and then injected cholangiogram showing the cystic duct patent and also good flow proximal and distal with no resistant and no obvious filling defects. This was done under fluor oscopy with proper protection. The catheter was then removed after the balloon was deflated and then we proceeded to put 3 clips proximal and then ligation in middle. The cystic artery was ligated usi ng 3 clips proximal, 1 clip distal, ligation in the middle. At that moment, I proceeded to remove th e gallbladder from the liver using Bovie cauterizer and removed from the abdominal cavity using an En doCatch through the umbilical incision. We have to extend even the umbilical incision due to the siz e of that gallbladder and swelling of the wall did not come to the renal opening. Once we have that, we proceeded then to obtain pneumoperitoneum once again, irrigated the area. Due to all the inflamm ation and infection in that area, I believe we should leave the KEVON drain in that region and was place d on the right upper quadrant exiting to 1 of the trocar sites and keeping it in place with the help of a 3-0 nylon. At that moment, I proceeded to remove the trocars under direct vision. Deflated the pneumoperitoneum. Closed the fascia with #1 Vicryl. Irrigated subcutaneous tissue, closed that wit h 3-0 chromic and the fascia was also approximated with more stitches #1 Vicryl since we have to exte nd the incision. Subcutaneous tissue was closed with 3-0 chromic and skin with marlen. Sponge coun t, instrument counts correct. KEVON was connected to bulb suction. The patient will be admitted to the hospital. Since adhesions removed from the gallbladder, the gallbladder looks very edematous and in flamed despite that she has been on antibiotics already. We are going to keep her for the next 24-48 hours to see how she improves and then proceed accordingly. TRESA/STEVENSON Voice ID: [id number] Report ID: [id number]
[2023-02-23] MEDS: NA CHLORIDE 0.9% 1,000 ML IV SCH (16:25)
[2023-02-23 16:40] VITALS: BMI 45.4
[2023-02-23] MEDS: HYDROCODONE/APAP 5/325 MG TAB PO PRN ×2 (18:04→22:04)
[2023-02-23] MEDS: HYDROMORPHONE HCL 1 MG/ML INJ IV PRN ×2 (20:28→23:45)
[2023-02-23] MEDS: CIPROFLOXACIN 400mg IV 400 MG/200 ML BAG IV SCH (20:32)
[2023-02-24 02:58] LABS: Absolute Lymphocytes (CBC) 0.6 K/uL (0.7-4.9); Hematocrit 32.8 % (36.0-45.0); Lymphocytes % 5.1 % (15.3-44.8); MCV 69.1 fL (80-100); MPV 9.1 fL (7.6-11.3); Platelets 219 thou/uL (152-406); RBC Red Blood Cell Count 4.75 M/uL (3.86-4.86)
[2023-02-24] MEDS: NA CHLORIDE 0.9% 1,000 ML IV SCH ×3 (03:03→20:44)
[2023-02-24] MEDS: HYDROCODONE/APAP 5/325 MG TAB PO PRN ×4 (03:03→20:07)
[2023-02-24] MEDS: HYDROMORPHONE HCL 1 MG/ML INJ IV PRN (06:33)
[2023-02-24] MEDS: CIPROFLOXACIN 400mg IV 400 MG/200 ML BAG IV SCH ×2 (09:32→20:16)
[2023-02-24] MEDS: PANTOPRAZOLE 40 MG INJ IVP SCH (09:33)
[2023-02-24 15:21] LABS: Albumin 2.9 g/dL (3.4-5.0); Bilirubin Direct 0.5 mg/dL (0-0.2); Bilirubin Indirect, Calculated 0.7 mg/dL (0.2-0.8); Bilirubin Total 1.2 mg/dL (0.2-1.0); Protein, Total 7.2 g/dL (6.4-8.2)
[2023-02-24] MEDS: DOCUSATE NA 100 MG CAP PO SCH (20:07)
--- NOTE | 2023-02-24 21:55 | P.DS ---
Admission Date: 02/23/23 Discharge Date: 02/24/23 Disposition: ROUTINE DISCHARGE Discharge Condition: GOOD Hospital Course: unremarkable Vital Signs/Physical Exam: Temp Pulse Resp BP Pulse Ox 97.3 F 56 16 104/51 L 98 02/24/23 20:00 02/24/23 20:00 02/24/23 21:07 02/24/23 20:00 02/24/23 21:07 General: Alert, In no apparent distress, Oriented x3, Cooperative HEENT: Atraumatic, Normocephalic, PERRLA, Mucous membr. moist/pink Neck: Supple Respiratory: Clear to auscultation bilaterally, Normal air movement Cardiovascular: No edema, Normal pulses, Regular rate/rhythm Gastrointestinal: Normal bowel sounds, Soft and benign, Other (KEVON clear) Musculoskeletal: No erythema, No tenderness, No warmth Integumentary: No rashes, No breakdown, No erythema, No warmth, No cyanosis Neurological: Normal gait, Normal speech, Cranial nerves 3-12 intact Lymphatics: No axilla or inguinal lymphadenopathy External genitalia: Deferred Rectal: Deferred Laboratory Data at Discharge: WBC 11.30 thou/uL (4.3-10.9) H 02/24/23 02:39 Hgb 10.4 g/dL (12.0-15.0) L 02/24/23 02:39 Hct 32.8 % (36.0-45.0) L 02/24/23 02:39 Plt Count 219 thou/uL (152-406) 02/24/23 02:39 Sodium 136 mEq/L (136-145) 02/24/23 02:39 Potassium 4.0 mEq/L (3.5-5.1) D 02/24/23 02:39 BUN 11 mg/dL (7-18) 02/24/23 02:39 Creatinine 0.86 mg/dL (0.55-1.02) 02/24/23 02:39 Glucose 151 mg/dL (74-106) H 02/24/23 02:39 Total Bilirubin 1.2 mg/dL (0.2-1.0) H 02/24/23 02:36 AST 101 U/L (15-37) H 02/24/23 02:36 ALT 107 U/L (13-56) H 02/24/23 02:36 Alkaline Phosphatase 181 U/L (45-117) H 02/24/23 02:36 Lipase 33 U/L (13-75) 02/23/23 11:54 Home Medications: NK [No Home Meds] 02/23/23 Followup: Andrez Jeffers MD [Primary Care Provider] -
[2023-02-25] MEDS: HYDROCODONE/APAP 5/325 MG TAB PO PRN ×3 (01:15→09:10)
[2023-02-25] MEDS: NA CHLORIDE 0.9% 1,000 ML IV SCH (04:42)
[2023-02-25] MEDS: DOCUSATE NA 100 MG CAP PO SCH (09:10)
[2023-02-25] MEDS: CIPROFLOXACIN 400mg IV 400 MG/200 ML BAG IV SCH (09:10)
[2023-02-25] MEDS: PANTOPRAZOLE 40 MG INJ IVP SCH (09:10)
[2023-02-25 11:06] VITALS: BP 110/52; TEMP 98
[2023-02-25 14:07] VITALS: O2SAT 95
== END 2023-02-25 10:45 | disposition home or self-care (01) | DRG 418 ==
LOC: OR 11:24 → 4TH 15:00
PROVIDERS: ADMIT Surgery; ATTEND Surgery
PROC: BF121ZZ Fluoroscopy of Gallbladder using Low Osmolar Contrast (ICD-10-PCS; 2023-02-23)
PROC: 0FT44ZZ Resection of Gallbladder, Percutaneous Endoscopic Approach (ICD-10-PCS; principal; 2023-02-23 13:45)
DX: K80.00 Calculus of gallbladder with acute cholecystitis without obstruction (principal); Z68.42 Body mass index [BMI] 45.0-49.9, adult; E66.9 Obesity, unspecified; R74.8 Abnormal levels of other serum enzymes
CPT/HCPCS: 36415; 74300; 80048; 80076; 83690; 84703; 85025; 88304; 94010; C9113; J0694; J0744; J1100; J1170; J2001; J2250; J2405; J2704; J2710; J3010; J7030; J7120